=== PATIENT | female | born 1955 | race Caucasian/White ===

== ENCOUNTER 2023-07-30 13:04 | Outpatient (AMB) | payer MEDICARE, SELFPAY ==
--- NOTE | 2023-07-30 13:11 | MHC.PC.OV ---
Vital Signs 07/30/23 13:17 Height 5 ft 1 in Weight 153 lb 6 oz BMI 29.0 BP 120/60 Blood Pressure Location Lt brachial Position Sitting Pulse 63 Pulse Source Pulse Oximeter Pulse Oximetry (%) 97 Oxygen Delivery Method Room Air Intake Visit Reasons: establish Care Intake Note: Patient is here to establish care with Dr. Lepe. Patient reports her last colonoscopy was in 2021, last pneumovax was in 2020, last mammogram was in 2020, and she is allergic to the tetanus booster. Patient would like her meds refilled, and would like to talk about breathing test. 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 Accompanied by: Self / Same As Patient Allergies albuterol Allergy (Mild, Verified 07/30/23 13:22) headache, coded on operating table diphtheria,tetanus,poliomyelitis va Allergy (Mild, Verified 07/30/23 13:22) Swelling solumedrol Allergy (Mild, Uncoded 07/30/23 13:22) Anaphylaxis Medication List - Last Reconciled 07/30/23 by Devang Lepe MD aspirin 81 mg PO DAILY clopidogrel 75 mg PO DAILY famotidine 40 mg PO DAILY auqfbbmmzem-jgzewnkmj-hmzbiyrk 100-62.5-25 mcg (Trelegy Ellipta) 1 inh inhalation DAILY meclizine (Dramamine (meclizine)) 25 mg PO DAILY PRN metoprolol succinate ER 25 mg PO BID morphine 15 mg PO .4 times a day PRN nitroglycerin 0.4 mg sublingual Q5M PRN oxycodone-acetaminophen 10-325 mg 1 tab PO Q8H PRN rosuvastatin 40 mg PO DAILY sertraline 200 mg PO DAILY Tobacco use date assessed: 07/30/23 Fall risk assessment: 2 + Falls in past year Last assessed Fall Risk: 07/30/23 Dental Screening Dental Screen Date: 07/30/23 Did you have a dental visit in the last 12 months?: No Did you have a dental problem in the last 6 months where you did not have access to dental care?: No Was dental information given to patient?: Patient declined HPI establish Care HPI Details New?patient Prior?PCP: Dr. Gustafson, [facility]. Moved 1.5 yrs ago. Last?office?visit/CPE: Acute?issue(s): Colonoscopy 2021 - dx rectal CA. No f/u x 1.5 yrs. Now with burning and pain at perineum. Cervical spine pain. Pain management Dr John Pacheco [facility]. PMHx: CAD, R Lung cancer 1996 and s/p Lobectomy - stable, Rectal cancer dx in 2021, cerebral aneurysm 12 cm s/p coiled, COPD, palpitations, anxiety, peripheral arterial disease with stents. Endometriosis. b/L breast discharge and FAmily Hx Breast CA. Cervical radiculopathy. SurgHx: Right long lobectomy, Brain aneurysm coil procedure. coronary artery stent, hysterectomy, bilateral mastectomy, neck surgery, lower extremity artery stent/Bypass. Colonoscopy 2021 - dx rectal CA. Cervical disc replacement. FHx: Grandmother Breast CA SocHx: Quit cigs 1.5 yrs ago. EtOH rarely 1 drink. No drugs PFSH Medical History (Updated 07/30/23 @ 14:33 by Devang Lepe MD) Rectal cancer Palpitations Anxiety 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 Lung cancer Aneurysm, cerebral Surgical History (Updated 07/30/23 @ 13:28 by Heena Wright [facility]) History of heart artery stent History of hysterectomy History of partial mastectomy of both breasts History of neck surgery Family History (Updated 07/30/23 @ 13:30 by Heena Wright [facility]) Mother High cholesterol Lung cancer Cardiovascular disease Paternal Grandmother Breast cancer Sister Non-Hodgkin lymphoma Social History (Updated 07/30/23 @ 13:37 by Anupama Singleton [facility]) Household Members: Family Household Members Other:: sister, sister's boyfriend Both parents involved: No Caregiver staying overnight: No Housing: House Are you a primary hospice care transitions coordinator to a significant other at home: No Do you presently have visiting nurse or other home services: No 75 years or older and lives alone: No Alcohol intake: current Alcohol intake frequency: a few times a month Alcohol type: beer and hard liquor Comment: on occasion Patient Tobacco Use Status: Former Tobacco user e-Cigarette/Vaping Use: Never Used Current occupational status: disabled Current occupational exposures/hazards: No Cognitive needs: No Hearing needs: Yes (Patient has hearing aids) Vision needs: Yes (Patient wears glasses) Questionnaire PHQ-9 Over the last 2 weeks, how often have you been bothered by any of the following problems? 1. Little interest or pleasure in doing things: more than half the days 2. Feeling down, depressed, or hopeless: several days 3. Trouble falling or staying asleep, or sleeping too much: nearly every day 4. Feeling tired or having little energy: nearly every day 5. Poor appetite or overeating: nearly every day 6. Feeling bad about yourself - or that you are a failure or have let yourself or your family down: not at all 7. Trouble concentrating on things, such as reading the newspaper or watching television: not at all 8. Moving or speaking so slowly that other people could have noticed. Or the opposite - being so fidgety or restless that you have been moving around a lot more than usual: not at all 9. Thoughts that you would be better off or of hurting yourself in some way: not at all Total score: 12 Depression Screening Interpretation: Positive Depression Screening Done: Yes [id number] - PHQ-9 Billing: Yes Source: Developed by Drs. Marlo Reed, Roxana Lopez, Justin Bruner and colleagues, with an educational north from [employer]. Thrive Questionnaire Date Thrive assessed: 07/30/23 I am a: Patient What is your living situation today?: I have a steady place to live Within the past 12 months, did the food you bought not last and you didn't have the money to get more?: Never true Within the past 12 months, did you worry whether your food would run out before you got money to buy more?: Never true Do you have trouble paying for medicines?: No Do you have trouble getting transportation to medical appointments?: Yes (sometimes) Do you have trouble paying your heating and electricity bill?: No Do you have trouble taking care of your child, family member or friend?: No Do you have trouble with day-to-day activities such as bathing, preparing meals, shopping, managing finances, etc.?: No Are you currently unemployed and looking for a job?: No (disabled) Are you interested in more education?: No Please select the resources that you would like help with: Transportation Currently or been in a relationship where the following occur: no concerns reported THRIVE Score: 1 AUDIT C Alcohol Use Questionnaire (AUDIT-C) 1. How often do you have a drink containing alcohol?: 2-4 times a month 2. How many drinks containing alcohol do you have on a typical day when you are drinking?: 1 or 2 3. How often do you have six or more drinks on one occasion?: Never Total Score: 2 LEIGHANN-7 AMB Questionnaire LEIGHANN-7 Date LEIGHANN - 7 assessed: 07/30/23 Feeling nervous, anxious, or on edge: 1 = Several days Not being able to stop or control worryin = Not at all Worrying too much about different things: 0 = Not at all Trouble relaxin = Several days Being so restless that it is hard to sit still: 0 = Not at all Becoming easily annoyed or irritable: 1 = Several days Feeling afraid as if something awful might happen: 1 = Several days Total LEIGHANN-7 score (0-4 normal; 5-9 mild; 10-14 moderate; 15-21 severe): 4 Source: Developed by Drs. Marlo Reed, Roxana Lopez, Justin Bruner and colleagues, with an educational north from [employer]. LEIGHANN-7 Assessment Billing LEIGHANN-7 Assessment Tool: LEIGHANN-7 Assessment 81514 Review of Systems Const Denies chills, Denies fatigue, Denies fever(s), Denies headache(s) and Denies weakness ENT Denies dizziness and Denies headache(s) Card Denies chest pain, Denies lightheadedness, Denies dyspnea and Denies other (Palpitations) Resp Denies cough, Denies dyspnea, Denies wheezing and Denies other ( shortness of breath) GI Details: Rectal/perineal?mass.??See?HPI Musc Details: Cervicalgia Denies numbness and Denies tingling Neuro Denies dizziness, Denies headache(s), Denies numbness, Denies tingling, Denies paresthesias and Denies weakness Psych Denies anxiety and Denies depression Endo Denies fatigue Aller/Immun Denies wheezing Physical exam (Primary Care) Vital Signs: Last Vital Signs Pulse 63 07/30/23 13:17 BP 120/60 07/30/23 13:17 Pulse Ox 97 07/30/23 13:17 Oxygen Delivery Method Room Air 07/30/23 13:17 BMI result Body Mass Index 29.0 Tobacco/Smoking Status: Tobacco use Status Tobacco use date assessed 07/30/23 07/30/23 13:31 Patient Tobacco Use Status Former Tobacco user 07/30/23 13:37 e-Cigarette/Vaping Use Never Used 07/30/23 13:37 PHQ-9: PHQ-9 Score PHQ-9: Total score 12 07/30/23 13:31 Depression Screening Interpretation: Positive Thrive Assessment: Date of Thrive Assessment Date Thrive assessed 07/30/23 07/30/23 13:31 Currently or been in a relationship where the following occur: no concerns reported Const General: no acute distress and well developed Nutritional Appearance: well nourished Orientation/consciousness: patient oriented x3 HENMT Head: Yes normocephalic and Yes atraumatic Eyes General: appearance normal, both eyes and all related structures Pupils: Equal, round and reactive pupils present EOM: EOMs intact bilaterally Resp Effort & Inspection: normal respiratory effort Auscultation: clear to auscultation bilaterally Cardio Rate: regular rate Rhythm: regular rhythm Heart sounds: S1 normal heart sound present, S2 normal heart sound present, no gallops, no murmurs and no rubs Neuro General: patient oriented x3 and gait normal Cranial nerves: Yes Equal, round and reactive pupils present Psych Affect: normal affect Assessment and Plan Assessment & Plan (1) Rectal carcinoma: Code(s): C20 - Malignant neoplasm of rectum Plan: 67-year-old?female?presents?as?new?patient?and?describes?diagnosis?of?rectal?carcinoma?in?[facility]?[place]?prior?to?moving?here?1.5?years?ago?and?she?describes?no?further?follow-up. She?notes?perineal?and?rectal?mass?with?itching?and?burning Referred?to?surgery?and?also?to?Hematology-Oncology Requesting?records?as?I?do?not?currently?have?these. (2) Presence of stent in coronary artery in patient with coronary artery disease: Code(s): I25.10 - Atherosclerotic heart disease of [place] coronary artery without angina pectoris; Z95.5 - Presence of coronary angioplasty implant and graft Plan: History?of?coronary?artery?disease Continue?current?medication Follow-up?with?Cardiology-referred (3) COPD (chronic obstructive pulmonary disease): Code(s): J44.9 - Chronic obstructive pulmonary disease, unspecified Plan: Patient?with?COPD?now?s/p?smoking?cessation?and?s/p?right?lung?lobectomy?secondary?to?lung?cancer Referred?to?pulmonology (4) History of lung cancer: Code(s): Z85.118 - Personal history of other malignant neoplasm of bronchus and lung Plan: As?above (5) Anxiety and depression: Code(s): F41.9 - Anxiety disorder, unspecified; F32.A - Depression, unspecified Plan: Had?been?on?sertraline?200?mg?daily. Checked?with?pharmacy?and?she?has?not?received?this?recently. Starting?her?on?sertraline?50?mg?daily?and?we?can?titrate?up (6) Cervicalgia: Code(s): M54.2 - Cervicalgia Plan Cervicalgia?and?patient?notes?history?of?disc?surgery. She?says?that?she?had?a?prior?pain?management?specialist?in?[facility]?[place],??[place]. She?says?that?she?was?on?morphine?15?mg?4?times?a?day?and?Percocet?3?times?a?day.??Checked?with?her?pharmacy?in?[place]?and?they?have?no?records?of?this.??I?see?no?prescriptions?for?this?in?the?past?2?years. Removed?these?from?her?med?list?for?now.??Requesting?records. Referring?her?to?pain?management?to?look?for?alternative?modes?of?pain?control.??Will?review?records?when?available.??If?she?requires?opiate?level?of?pain?control,?would?start?her?at?lower?levels?as?she?does?not?seem?to?be?taking?this?currently. Currently,?she?has?no?acute?distress. Orders: Referrals Pain Management Referral M54.2 - Cervicalgia General Surgery Referral C20 - Malignant neoplasm of rectum Hematology & Oncology Referral C20 - Malignant neoplasm of rectum Pulmonary Medicine Referral J44.9 - Chronic obstructive pulmonary disease, unspecified, Z85.118 - Personal history of other malignant neoplasm of bronchus and lung Cardiology Referral I25.10 - Atherosclerotic heart disease of [place] coronary artery without angina pectoris, Z95.5 - Presence of coronary angioplasty implant and graft Medications: New aspirin 81 mg PO DAILY 90 days 90 tabs 4RF clopidogrel 75 mg PO DAILY 90 days 90 tabs 4RF famotidine 40 mg PO DAILY 90 days 90 tabs 3RF gwofqgvyhva-dywqwehdk-fxndvjrl 100-62.5-25 mcg (Trelegy Ellipta) 1 inh inhalation DAILY 30 days 60 ea 6RF sertraline 50 mg PO DAILY 90 days 90 tabs 3RF meclizine (Dramamine (meclizine)) 25 mg PO DAILY 30 days PRN 30 tabs 2RF dizziness, nausea metoprolol succinate ER 25 mg PO BID 90 days 180 tabs 4RF nitroglycerin do not exceed 3 doses per episode 0.4 mg sublingual Q5M 30 days PRN 120 tabs 4RF chest pain rosuvastatin 40 mg PO DAILY 90 days 90 tabs 4RF Coding Level of Care Code New Pt Level 4 (86894) Diagnoses Rectal carcinoma C20 Presence of stent in coronary artery in patient with coronary artery disease I25.10; Z95.5 COPD (chronic obstructive pulmonary disease) J44.9 History of lung cancer Z85.118 Anxiety and depression F41.9; F32.A Cervicalgia M54.2 Additional Codes LEIGHANN-7 Assessment Billing - LEIGHANN-7 Assessment Tool: LEIGHANN-7 Assessment [id number] ([id number])
[2023-07-30 13:17] VITALS: BP 120/60; PULSE 63; O2SAT 97; BMI 29.0
== END 2023-07-30 14:26 | disposition home or self-care (01) ==
PROVIDERS: PCP Family Medicine; Visit Provider Family Medicine
DX: I25.10 Atherosclerotic heart disease of native coronary artery without angina pectoris (principal); J44.9 Chronic obstructive pulmonary disease, unspecified; C20 Malignant neoplasm of rectum; Z95.5 Presence of coronary angioplasty implant and graft; F41.9 Anxiety disorder, unspecified; F32.A Depression, unspecified; Z85.118 Personal history of other malignant neoplasm of bronchus and lung; M54.2 Cervicalgia
CPT/HCPCS: 96127; 99204

== ENCOUNTER 2023-08-13 08:23 | Outpatient (AMB) | payer MEDICARE, SELFPAY ==
[2023-08-13 08:30] VITALS: BP 142/78; PULSE 94; O2SAT 96; BMI 28.9
--- NOTE | 2023-08-13 08:30 | MHC.OFFVIS ---
Vital Signs 08/13/23 08:30 Height 5 ft 1 in Weight 153 lb BMI 28.9 BP 142/78 H Blood Pressure Location Rt brachial Position Sitting Pulse 94 Pulse Source Pulse Oximeter Pulse Oximetry (%) 96 Oxygen Delivery Method Room Air Intake Visit Reasons: COPD Allergies albuterol Allergy (Mild, Verified 08/13/23 08:35) headache, coded on operating table diphtheria,tetanus,poliomyelitis va Allergy (Mild, Verified 08/13/23 08:35) Swelling solumedrol Allergy (Mild, Uncoded 08/13/23 08:35) Anaphylaxis HPI HPI COPD: Details: Luna is pleasant 67-year-old female, former smoker , quit in 2021 with underlying rectal cancer dx 2021, right lung cancer dx 1996 s/p right upper and 1/2 right middle lobectomy, cerebral aneurysm s/p coil, bilateral partial mastectomy secondary to bilateral breast discharge and family history breast cancer, COPD, GERD and peripheral arterial disease status post stents. She was referred by PCP for pulmonary evaluation. She moved here [place] 1.5 years ago and has not been under the care of Pulmonary for quite some time. She is currently managed on Trelegy 100 mcg with great response. She reports dyspnea on exertion at baseline with occasional dry cough and wheezing. She denies any recent need for prednisone or antibiotics. She denies any need for intubation related to respiratory distress. She denies any recent chest CT or PFT. PCP recently referred to Oncology and general surgeon, given h/o rectal cancer. No h/o chemo/radiation. She also has a consultation with cardiology at the end of September. She reports prescription of 2L supplemental oxygen to be used continuously, given by prior electrotype caster, however she only uses at night. She also reported prior diagnosis of pulmonary fibrosis. She does report oxygen concentrator at home but it has not been working. She has been checking her oxygen saturation at home ranging from 91-93% at baseline on room air. Denies any seasonal allergies. Reports dogs, chickens and ducks at home. 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 She reports mother, smoker, with h/o lung cancer. Of note, patient with allergies to albuterol and solumedrol, resulting in anaphylaxis. Has tolerated po prednisone as well as LAMA component of inhalers. [facility] Medical History (Updated 08/13/23 @ 09:14 by Olga Lidia Aly NP) Rectal cancer Palpitations Anxiety 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 Lung cancer Aneurysm, cerebral Surgical History (Updated 07/30/23 @ 13:28 by Heena Wright [facility]) History of heart artery stent History of hysterectomy History of partial mastectomy of both breasts History of neck surgery Family History (Updated 07/30/23 @ 13:30 by Heena Wright [facility]) Mother High cholesterol Lung cancer Cardiovascular disease Paternal Grandmother Breast cancer Sister Non-Hodgkin lymphoma Social History Household Members: Family Household Members Other:: sister, sister's boyfriend Housing: House Are you a primary ostomy care nurse to a significant other at home: No Do you presently have visiting nurse or other home services: No Alcohol intake: current Alcohol intake frequency: a few times a month Alcohol type: beer and hard liquor Comment: on occasion Patient Tobacco Use Status: Former Tobacco user e-Cigarette/Vaping Use: Never Used Current occupational status: disabled Current occupational exposures/hazards: No Cognitive needs: No Hearing needs: Yes (Patient has hearing aids) Vision needs: Yes (Patient wears glasses) Review of Systems Const Denies chills, Denies excessive sweating, Denies fever(s), Denies headache(s) and Denies night sweats Eyes Denies dry eyes, Denies irritation and Denies itchy eyes ENT Reports Normal hearing present, Denies headache(s), Denies nasal congestion, Denies nasal discharge, Denies post nasal drip and Denies sore throat Card Denies chest pain, Denies chest pain at rest, Denies chest pain with activity, Denies claudication, Denies leg edema, Denies orthopnea and Denies paroxysmal nocturnal dyspnea Resp Denies chest congestion, Denies excessive phlegm production, Denies pain on inspiration, Denies pain with cough and Denies stridor Musc Denies myalgias Neuro Reports Normal hearing present and Denies headache(s) Endo Denies excessive sweating Kostas/Lymph Denies lymphadenopathy Aller/Immun Denies itchy eyes and Denies seasonal rhinorrhea Physical Exam Vital Signs: Last Vital Signs Pulse 94 08/13/23 08:30 BP 142/78 H 08/13/23 08:30 Pulse Ox 96 08/13/23 08:30 Oxygen Delivery Method Room Air 08/13/23 08:30 BMI result Body Mass Index 28.9 Const General: cooperative, healthy appearing, comfortable, no acute distress, well developed and alert Orientation/consciousness: patient oriented x3 Limitations: no limitations HEENT Head: Yes normal to inspection, Yes normocephalic and Yes atraumatic Ears: hearing grossly normal bilaterally and external ears normal Eyes General: appearance normal, both eyes and all related structures Eyelids: Yes eyelids normal Sclerae: sclerae normal EOM: EOMs intact bilaterally Neck Neck: Yes normal visual inspection and Yes no lymphadenopathy Lymphatic: no lymphadenopathy noted Chest Chest palpation & inspection: normal inspection of the chest Resp Other: diminished throughout Effort & Inspection: normal respiratory effort, able to speak in complete sentences, no audible wheezes, no cough, no stridor, not tachypneic, no tripod positioning and no use of accessory muscles Cardio Jugular venous distension: no JVD Rate: regular rate Rhythm: regular rhythm Skin Other: warm, dry General skin exam: no rashes or lesions noted Neuro General: patient oriented x3 Cranial nerves: Yes Normal hearing present Cognition (Neuro): normal cognition Gait exam (Neuro): Normal gait present Extrem General: Yes normal to inspection, Yes capillary refill normal, Yes no clubbing, cyanosis or edema and Yes no pedal edema Psych Appearance: grossly normal and well kempt Speech and movement: Normal speech and movement present and Clear speech present Affect: normal affect Attitude: cooperative Thought process: Normal thought process present Thought content: Normal thought content present Insight: Good insight present (Psych) Judgement: Good judgement present (Psych) Assessment & Plan Assessment & Plan (1) COPD (chronic obstructive pulmonary disease): Code(s): J44.9 - Chronic obstructive pulmonary disease, unspecified Category: Medical (2) Tachycardia: Code(s): R00.0 - Tachycardia, unspecified Category: Medical (3) Dyspnea on minimal exertion: Code(s): R06.09 - Other forms of dyspnea Category: Medical (4) History of lung cancer: Code(s): Z85.118 - Personal history of other malignant neoplasm of bronchus and lung Category: Medical (5) Rectal carcinoma: Code(s): C20 - Malignant neoplasm of rectum Category: Medical (6) Personal history of tobacco use: Code(s): Z87.891 - Personal history of nicotine dependence Category: Social Hx Plan Luna presents to establish care with pulmonary provider as she has been without since moving from [place] 1.5 years ago. She has complex past medical history with COPD of unclear severity, h/o lung cancer 1996 s/p right upper and 1/2 right middle lobe, and currently with rectal carcinoma. Will send for PFT to assess severity of COPD and degree of restrictive defect. Patient recently stopped smoking 1.5 years ago, with significant smoking history and h/o lung cancer, will send for chest CT to evaluate. 6MWT attempted however patient became tachycardic within 25 yards of ambulating. HR initially 73, quickly increased to 156 with minimal ambulation, recovering quickly to 93 with rest. Oxygen saturation maintained 93-95%. During this time patient did not report any chest pain, dizziness, headache, dyspnea or palpitations. Due to tachycardia, 6MWT stopped and patient will have EKG and echo. She is aware if she develops any cardiac symptoms to seek emergent care. At this time, advised patient to continue current regimen and will follow up to review results of tests in 4-6 weeks or sooner if needed. Orders: Orders ECG 12 lead EKG Today R00.0 - Tachycardia, unspecified CA echo transthoracic complete Today R06.09 - Other forms of dyspnea PFT pulmonary function test Today J44.9 - Chronic obstructive pulmonary disease, unspecified CT chest wo IV con Today Z87.891 - Personal history of nicotine dependence Coding Level of Care Code New Pt Level 4 (83702) Diagnoses COPD (chronic obstructive pulmonary disease) J44.9 Tachycardia R00.0 Dyspnea on minimal exertion R06.09 History of lung cancer Z85.118 Rectal carcinoma C20 Personal history of tobacco use Z87.891
== END 2023-08-13 09:21 | disposition home or self-care (01) ==
PROVIDERS: PCP Family Medicine; Visit Provider Nurse Practitioner Family
DX: J44.9 Chronic obstructive pulmonary disease, unspecified (principal); R00.0 Tachycardia, unspecified; R06.09 Other forms of dyspnea; Z85.118 Personal history of other malignant neoplasm of bronchus and lung; C20 Malignant neoplasm of rectum; Z87.891 Personal history of nicotine dependence
CPT/HCPCS: 99204

== ENCOUNTER 2023-08-13 09:30 | Outpatient (REF) | payer MEDICARE, OTHER, SELFPAY ==
[2023-08-13 11:34] LABS: MANUAL DIFF FLAG NO
[2023-08-13 11:46] LABS: Basophils Absolute Auto 0.1 X10*3/uL (0.0-0.2); Basophils Percent Auto 0.7 % (0-2); Eosinophils Absolute Auto 0.2 X10*3/uL (0.0-0.4); Eosinophils Percent Auto 3.6 % (0-4); Hematocrit 42.5 % (37.0-47.0); Imm Gran Abs Auto 0.03 X10*3/uL (0.00-0.03); Imm Gran Pct Auto 0.4 % (0.0-0.4); Lymphocytes Absolute Auto 2.3 X10*3/uL (1.2-4.9); Lymphocytes Percent Auto 34.2 % (20-40); Mean Corpuscular HGB Conc 32.9 g/dl (31.0-35.0); Mean Corpuscular Hemoglobin 28.9 pg (27.0-33.0); Mean Corpuscular Volume 87.6 fL (80.0-98.0); Mean Platelet Volume 9.2 fL (9.4-12.3); Monocytes Absolute Auto 0.6 X10*3/uL (0.1-1.2); Monocytes Percent Auto 9.4 % (2-11); Neutrophils Absolute Auto 3.5 x10*3/uL (2.0-8.3); Neutrophils Percent Auto 51.7 % (45-73); Platelet Count 211 X10*3/uL (160-400); Red Blood Count 4.85 X10*6/uL (4.20-5.50); Red Cell Distribution Width 13.4 % (11.0-16.0); White Blood Count 6.7 X10*3/uL (4.8-10.8)
[2023-08-13 12:08] LABS: Alanine Aminotransferase 17 U/L (0-31); Albumin Level 4.4 g/dL (3.5-5.0); Alkaline Phosphatase 84 U/L (39-117); Anion Gap 16 (12-20); Aspartate Amino Transferase 24 U/L (5-31); Bilirubin Total 0.4 mg/dL (0.0-1.0); Blood Urea Nitrogen 24 mg/dL (9-16); Calcium 10.5 mg/dL (8.4-10.2); Carbon Dioxide 22 mmol/L (22-29); Chloride 107 mmol/L (96-108); Cholesterol 352 mg/dL (<200); Estimated Glomerular Filt Rate 38; Glucose Fasting 102 mg/dL (60-99); HDL Cholesterol 43 mg/dL (>40); LDL Cholesterol Calculated 248 mg/dL (<100); Potassium 3.6 mmol/L (3.3-5.1); Sodium 141 mmol/L (135-145); Total Protein 8.2 g/dL (6.5-8.0); Triglycerides 306 mg/dL (<150)
[2023-08-13 12:26] LABS: TSH reflex Free T4 4.71 uIU/mL (0.32-4.0)
[2023-08-13 12:30] LABS: Microalbum/Creatinine Ratio Ur 7.1 ug/mg cr (<30)
[2023-08-13 12:45] LABS: Appearance Urine Hazy; Color Urine Yellow; Glucose Urine UA Negative (Negative); Leukocyte Esterase Urine Negative (Negative); Nitrite Urine Negative (Negative); Specific Gravity - Urine >= 1.030 (1.005-1.025); Urine Blood Negative (Negative); Urine Ketones Negative (Negative); Urine Protein Trace mg/dL (Neg-Trace)
[2023-08-13 13:08] LABS: Free T4 (Free Thyroxine) 0.89 ng/dL (0.71-1.85)
[2023-08-14 08:33] LABS: Carbohydrate Antigen 19-9 22 U/mL (<34)
== END 2023-08-13 09:31 | disposition home or self-care (01) ==
LOC: HO.WFDLDS 09:30
PROVIDERS: Visit Provider Family Medicine
DX: Z00.00 Encounter for general adult medical examination without abnormal findings (principal); C20 Malignant neoplasm of rectum; I10 Essential (primary) hypertension; J44.9 Chronic obstructive pulmonary disease, unspecified; R00.0 Tachycardia, unspecified; R06.09 Other forms of dyspnea; Z85.118 Personal history of other malignant neoplasm of bronchus and lung; Z87.891 Personal history of nicotine dependence
CPT/HCPCS: 36415; 80053; 80061; 81003; 82043; 82378; 82570; 84439; 84443; 85025; 86301; 99202

== ENCOUNTER → 2023-08-15 15:07 | Outpatient (REF) | payer MEDICARE, OTHER, SELFPAY ==
--- NOTE | 2023-08-15 15:15 | ECG_ITS ---
Test Reason : TACHYCARDIA Blood Pressure : / mmHG Vent. Rate : 075 BPM Atrial Rate : 075 BPM P-R Int : 130 ms QRS Dur : 092 ms QT Int : 410 ms P-R-T Axes : 075 022 058 degrees QTc Int : 457 ms Sinus rhythm with marked sinus arrhythmia Nonspecific ST and T wave abnormality Abnormal ECG No previous ECGs available Referred By: Olga Lidia Aly Electronically Signed By:Tadeo Oden
== END ==
LOC: HO.CARD 15:07
PROVIDERS: Visit Provider Nurse Practitioner Family
DX: R00.0 Tachycardia, unspecified (principal)
CPT/HCPCS: 46600; 93005; 99202

== ENCOUNTER → 2023-08-15 15:15 | Outpatient (BNV) | payer MEDICARE, SELFPAY | PROVIDERS: Visit Provider Internal Medicine Cardiovascular Disease | DX: R94.31 Abnormal electrocardiogram [ECG] [EKG] (principal); R00.0 Tachycardia, unspecified | CPT/HCPCS: 93010 ==

== ENCOUNTER 2023-08-15 15:30 | Outpatient (AMB) | payer MEDICARE, SELFPAY ==
--- NOTE | 2023-08-15 15:44 | A.OFFVIS_ITS ---
Vital Signs 08/15/23 15:46 Height 5 ft 1 in Weight 153 lb 0.013 oz BMI 28.9 Intake Visit Reasons: Possible Rectal CA Intake Note: This patient presents for an assessment for possible Rectal CA. Pt c/o; reports no complaints. 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 Accompanied by: Other Relationship Allergies albuterol Allergy (Mild, Verified 08/21/23 13:04) headache, coded on operating table diphtheria,tetanus,poliomyelitis va Allergy (Mild, Verified 08/21/23 13:04) Swelling solumedrol Allergy (Mild, Uncoded 08/15/23 15:45) Anaphylaxis Medication List - Last Reconciled 08/15/23 by Edilberto Kearns MD aspirin 81 mg PO DAILY 90 days clopidogrel 75 mg PO DAILY 90 days famotidine 40 mg PO DAILY 90 days gbdkqfcooqx-vbvoblnlj-hnhznbuv 100-62.5-25 mcg (Trelegy Ellipta) 1 inh inhalation DAILY 30 days meclizine (Dramamine (meclizine)) 25 mg PO DAILY PRN 30 days metoprolol succinate ER 25 mg PO BID 90 days nitroglycerin 0.4 mg sublingual Q5M PRN 30 days rosuvastatin 40 mg PO DAILY 90 days sertraline 50 mg PO DAILY 90 days HPI HPI Possible Rectal CA: Details: 67-year-old female referred to me for question of a cancer in the anus. She just moved to the area from [place], [place] about a year and a half ago. She says she was being treated there because of a cancer outside her anus. She says she had multiple surgeries to remove this. She has not seen any surgeon since she had moved here. She is uncertain as to exactly what kind of cancer she had. She says she did not have any other treatment. She describes some burning around her anus but denies any significant pain. She says they often has loose bowel movements. She denies seeing blood per rectum. 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 Lung cancer Aneurysm, cerebral Surgical History History of heart artery stent History of hysterectomy History of partial mastectomy of both breasts History of neck surgery Family History Mother High cholesterol Lung cancer Cardiovascular disease Paternal Grandmother Breast cancer Sister Non-Hodgkin lymphoma Social History Household Members: Family Household Members Other:: sister, sister's boyfriend Both parents involved: No Caregiver staying overnight: No Housing: House Are you a primary foster care therapist to a significant other at home: No Do you presently have visiting nurse or other home services: No 75 years or older and lives alone: No Alcohol intake: current Alcohol intake frequency: a few times a month Alcohol type: beer and hard liquor Comment: on occasion Patient Tobacco Use Status: Former Tobacco user e-Cigarette/Vaping Use: Never Used Current occupational status: disabled Current occupational exposures/hazards: No Cognitive needs: No Hearing needs: Yes (Patient has hearing aids) Vision needs: Yes (Patient wears glasses) Review of Systems Const Denies chills and Denies fever(s) Card Denies chest pain, Denies dyspnea and Denies dyspnea on exertion Resp Denies cough, Denies dyspnea and Denies dyspnea on exertion GI Denies hematochezia and Denies change in bowel habits Denies hematuria Musc Denies back pain and Denies limited range of motion Neuro Denies focal weakness and Denies convulsions Psych Denies depression and Denies mood swings Physical Exam Vital Signs: BMI result Body Mass Index 28.9 Const General: comfortable and no acute distress Orientation/consciousness: patient oriented x3 Neck Neck: Yes no lymphadenopathy Resp Auscultation: clear to auscultation bilaterally Cardio Rhythm: regular rhythm GI Other: Rectal exam shows no obvious perianal lesion Palpation (GI): Soft to palpation, nontender and no guarding Neuro General: patient oriented x3 Office Procedures Anoscopy She was in soni-knife position. The anoscope was gently inserted. A full examination of the anal canal was done. She did have a lot of stools in the rectal vault so visualization was difficult. There was no obvious mass seen. I did a digital exam and I could not feel any induration or any mass in the anal canal. [id number] Assessment & Plan Assessment & Plan (1) Mass of anus: Code(s): K62.89 - Other specified diseases of anus and rectum Category: Medical Plan: She says she was being treated for some form of cancer in her anus in [place]. Current exam does not reveal any anal lesion. Furthermore, there were no obvious lesions in the perianal area. I will retrieve her records from [place] and I will review this to see exactly what she was being treated for. I will need to see her back to discuss next step in her care after I am able to review her records She is is comfortable with the plan. Coding Level of Care Code New Pt Level 4 (08629) Diagnoses Mass of anus K62.89 CPT Codes Details - CPT: 11583-Swjsqmsj ([id number])
[2023-08-15 15:46] VITALS: BMI 28.9
== END 2023-08-15 16:11 | disposition home or self-care (01) ==
PROVIDERS: PCP Family Medicine; Referring Provider Family Medicine; Visit Provider Surgery
DX: K62.89 Other specified diseases of anus and rectum (principal)
CPT/HCPCS: 46600; 99204

== ENCOUNTER → 2023-08-21 12:49 | Outpatient (BNVA) | payer MEDICARE, SELFPAY | PROVIDERS: PCP Family Medicine; Referring Provider Family Medicine; Visit Provider Registered Nurse Emergency ==

== ENCOUNTER 2023-09-10 10:30 | Outpatient (AMB) | payer MEDICARE, SELFPAY ==
--- NOTE | 2023-09-10 10:32 | MHC.OFFVIS ---
Vital Signs 09/10/23 10:33 Height 5 ft 1 in Weight 151 lb 8 oz BMI 28.6 BP 118/70 Blood Pressure Location Rt brachial Position Sitting Pulse 88 Pulse Source Pulse Oximeter Pulse Oximetry (%) 97 Oxygen Delivery Method Room Air Intake Visit Reasons: COPD Allergies albuterol Allergy (Mild, Verified 09/11/23 16:25) headache, coded on operating table diphtheria,tetanus,poliomyelitis va Allergy (Mild, Verified 09/11/23 16:25) Swelling solumedrol Allergy (Mild, Uncoded 09/11/23 16:25) Anaphylaxis HPI HPI COPD: Details: Luna is pleasant 67-year-old female, former smoker , quit in 2021 with underlying rectal cancer dx 2021, right lung cancer dx 1996 s/p right upper and 1/2 right middle lobectomy, cerebral aneurysm s/p coil, bilateral partial mastectomy secondary to bilateral breast discharge and family history breast cancer, COPD, GERD and peripheral arterial disease status post stents. At the last visit, orders were placed for PFT and chest CT which are scheduled in the next few weeks. She had reportedly using supplemental oxygen while in [place],, 2L continuously, however has only been using at night for the last year. She does not recall the DME company that she uses, but they are located in [place]. 6MWT was attempted at the last visit in order to send new rx for concentrator, however patient became tachycardic without hypoxia and test was stopped. She had EKG, an echo was ordered and she has an upcoming cardiology evaluation. She has been checking her oxygen saturation at home ranging from 91-93% at baseline on room air. Today she reports suboptimal control with Trelegy, continuing with dyspnea on exertion and intermittent dry cough. Denies chest tigthness or wheezing. 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 Lung cancer Aneurysm, cerebral Surgical History History of heart artery stent History of hysterectomy History of partial mastectomy of both breasts History of neck surgery Family History Mother High cholesterol Lung cancer Cardiovascular disease Paternal Grandmother Breast cancer Sister Non-Hodgkin lymphoma Social History Household Members: Family Household Members Other:: sister, sister's boyfriend Both parents involved: No Caregiver staying overnight: No Housing: House Are you a primary long term acute care registered nurse to a significant other at home: No Do you presently have visiting nurse or other home services: No 75 years or older and lives alone: No Alcohol intake: current Alcohol intake frequency: a few times a month Alcohol type: beer and hard liquor Comment: on occasion Patient Tobacco Use Status: Former Tobacco user e-Cigarette/Vaping Use: Never Used Current occupational status: disabled Current occupational exposures/hazards: No Cognitive needs: No Hearing needs: Yes (Patient has hearing aids) Vision needs: Yes (Patient wears glasses) Review of Systems Const Denies chills, Denies excessive sweating, Denies fever(s), Denies headache(s) and Denies night sweats Eyes Denies dry eyes, Denies irritation and Denies itchy eyes ENT Reports Normal hearing present, Denies headache(s), Denies nasal congestion, Denies nasal discharge, Denies post nasal drip and Denies sore throat Card Denies chest pain, Denies chest pain at rest, Denies chest pain with activity, Denies claudication, Denies leg edema, Denies orthopnea and Denies paroxysmal nocturnal dyspnea Resp Denies chest congestion, Denies excessive phlegm production, Denies pain on inspiration, Denies pain with cough and Denies stridor Musc Denies myalgias Neuro Reports Normal hearing present and Denies headache(s) Endo Denies excessive sweating Kostas/Lymph Denies lymphadenopathy Aller/Immun Denies itchy eyes and Denies seasonal rhinorrhea Physical Exam Vital Signs: Last Vital Signs Pulse 88 09/10/23 10:33 BP 118/70 09/10/23 10:33 Pulse Ox 97 09/10/23 10:33 Oxygen Delivery Method Room Air 09/10/23 10:33 BMI result Body Mass Index 28.6 Const General: cooperative, healthy appearing, comfortable, no acute distress, well developed and alert Orientation/consciousness: patient oriented x3 Limitations: no limitations HEENT Head: Yes normal to inspection, Yes normocephalic and Yes atraumatic Ears: hearing grossly normal bilaterally and external ears normal Eyes General: appearance normal, both eyes and all related structures Eyelids: Yes eyelids normal Sclerae: sclerae normal EOM: EOMs intact bilaterally Neck Neck: Yes normal visual inspection and Yes no lymphadenopathy Lymphatic: no lymphadenopathy noted Chest Chest palpation & inspection: normal inspection of the chest Resp Other: diminished throughout Effort & Inspection: normal respiratory effort, able to speak in complete sentences, no audible wheezes, no cough, no stridor, not tachypneic, no tripod positioning and no use of accessory muscles Cardio Jugular venous distension: no JVD Rate: regular rate Rhythm: regular rhythm Skin Other: warm, dry General skin exam: no rashes or lesions noted Neuro General: patient oriented x3 Cranial nerves: Yes Normal hearing present Cognition (Neuro): normal cognition Gait exam (Neuro): Normal gait present Extrem General: Yes normal to inspection, Yes capillary refill normal, Yes no clubbing, cyanosis or edema and Yes no pedal edema Psych Appearance: grossly normal and well kempt Speech and movement: Normal speech and movement present and Clear speech present Affect: normal affect Attitude: cooperative Thought process: Normal thought process present Thought content: Normal thought content present Insight: Good insight present (Psych) Judgement: Good judgement present (Psych) Office Procedures 6 Minute Walk Time:: 11:07 SPO2 % at rest: 94 Pulse at rest: 71 SPO2 % during excercise: 92 Pulse during excercise: 140 SPO2 % after excercise: 94 Pulse after excercise: 100 Distance in yards walked: 35 Jose Score: 7 Performance Observations:: Patient walked on level ground with a steadying arm at times. Patient walked with a slightly unsteady gait, reports she sometimes gets dizzy. Patient was able to walk approx 35 yards and pulse rate was in the 140's with O2 saturation of 92%. Walk was stopped and O2 sat increased to 94% with pulse rate of 100. Patient was short of breath all during the walk. Did not require the use of supplemental oxygen. Patient has upcoming cardiology appts. [id number] - 6 Minute Walk Assessment & Plan Assessment & Plan (1) COPD (chronic obstructive pulmonary disease): Code(s): J44.9 - Chronic obstructive pulmonary disease, unspecified Category: Medical (2) Tachycardia: Code(s): R00.0 - Tachycardia, unspecified Category: Medical (3) Dyspnea on minimal exertion: Code(s): R06.09 - Other forms of dyspnea Category: Medical (4) History of lung cancer: Code(s): Z85.118 - Personal history of other malignant neoplasm of bronchus and lung Category: Medical (5) Rectal carcinoma: Code(s): C20 - Malignant neoplasm of rectum Category: Medical (6) Personal history of tobacco use: Code(s): Z87.891 - Personal history of nicotine dependence Category: Social Hx Plan Luna continues to report suboptimal control with Trelegy 100 mcg, will increase to 200 mcg. Of note, albuterol is listed as an allergy however patient has been using Trelegy 100 mcg with no issues for the past year. At the last visit, orders were placed for a chest CT, echo and PFT. These have all been scheduled within the next few weeks. Patient again notes that she was previously on supplemental oxygen while in [place], she had moved here over a year ago and has been without since. 6MWT attempted however patient became tachycardic again, therefore, 6MWT stopped. Unable to perform at this time, will send for overnight oximetry on 2L supplemental oxygen to assess for nocturnal hypoxemia. Patient had an EKG which revealed tachycardia and nonspecific ST and T wave abnormalities. Had cardiology provider review who stated urgent referral was not needed at this time. She has an upcoming cardiology evaluation in 4 weeks. She is aware if she develops any cardiac symptoms to seek emergent care. At this time, advised patient to continue current regimen and will follow up after cardiology evaluation or sooner if needed. Orders: Orders AMB 6 minute walk 09/10/23 J44.9 - Chronic obstructive pulmonary disease, unspecified, R06.09 - Other forms of dyspnea Overnight Pulse Oximetry Today G47.34 - Idiopathic sleep related nonobstructive alveolar hypoventilation Medications: New nmtdzerrwaz-wdmwjdeid-laooonmd 200-62.5-25 mcg (Trelegy Ellipta) 1 inh inhalation DAILY 60 ea 0RF Discontinued atevitwrrji-brideqajb-iznfread 100-62.5-25 mcg (Trelegy Ellipta) Discontinued Reason: Patient Completed Course 1 inh inhalation DAILY 30 days 60 ea 6RF Coding Level of Care Code Est Pt Level 4 (54004) Diagnoses COPD (chronic obstructive pulmonary disease) J44.9 Tachycardia R00.0 Dyspnea on minimal exertion R06.09 History of lung cancer Z85.118 Rectal carcinoma C20 Personal history of tobacco use Z87.891 CPT Codes Coding ([id number])
[2023-09-10 10:33] VITALS: BP 118/70; PULSE 88; O2SAT 97; BMI 28.6
[2023-09-10 11:31] VITALS: PULSE 71; O2SAT 94
== END 2023-09-10 11:16 | disposition home or self-care (01) ==
PROVIDERS: PCP Family Medicine; Visit Provider Nurse Practitioner Family
DX: J44.9 Chronic obstructive pulmonary disease, unspecified (principal); R00.0 Tachycardia, unspecified; R06.09 Other forms of dyspnea; Z85.118 Personal history of other malignant neoplasm of bronchus and lung
CPT/HCPCS: 94618; 99214

== ENCOUNTER → 2023-09-10 10:30 | Outpatient (BNVA) | payer MEDICARE, OTHER, SELFPAY | PROVIDERS: PCP Family Medicine; Visit Provider Nurse Practitioner Family | DX: J44.9 Chronic obstructive pulmonary disease, unspecified (principal); R00.0 Tachycardia, unspecified; R06.09 Other forms of dyspnea; C20 Malignant neoplasm of rectum; Z85.118 Personal history of other malignant neoplasm of bronchus and lung; Z87.891 Personal history of nicotine dependence; Z79.899 Other long term (current) drug therapy | CPT/HCPCS: 94618; 99212 ==

== ENCOUNTER 2023-09-11 15:41 | Outpatient (AMB) | payer MEDICARE, SELFPAY ==
--- NOTE | 2023-09-11 16:12 | MHC.PC.OV ---
Vital Signs 09/11/23 16:16 Height 5 ft 1 in Weight 148 lb 8 oz BMI 28.1 BP 117/64 Blood Pressure Location Lt brachial Pulse 64 Pulse Source Pulse Oximeter Pulse Oximetry (%) 94 Oxygen Delivery Method Room Air Intake Visit Reasons: extended exam with f/up lab, health maint. Intake Note: Patient is here for extended exam with follow up on labs, and health maintenance. Allergies albuterol Allergy (Mild, Verified 09/11/23 16:25) headache, coded on operating table diphtheria,tetanus,poliomyelitis va Allergy (Mild, Verified 09/11/23 16:25) Swelling solumedrol Allergy (Mild, Uncoded 09/11/23 16:25) Anaphylaxis Tobacco use date assessed: 07/30/23 Dental Screening Dental Screen Date: 07/30/23 HPI extended exam with f/up lab, health maint. HPI Details Patient?presents?for?an?extended?exam?with?follow-up?labs?and?health?maintenance Lipids?had?been?elevated?so?I?started?her?on?rosuvastatin TSH?mildly?elevated Patient?states?that?she?has?ongoing?neck?pain.??History?of?cervical?surgery?though?I?do?not?have?records?yet. She?also?states?that?she?has?a?history?of?rectal?carcinoma?with?anal?mass.??Surgeon?did?not?find?any?mass.??Still?awaiting?records Complaint?of?right?upper?quadrant?pain.??History?of?cholecystectomy. 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 Lung cancer Aneurysm, cerebral Surgical History History of heart artery stent History of hysterectomy History of partial mastectomy of both breasts History of neck surgery Family History Mother High cholesterol Lung cancer Cardiovascular disease Paternal Grandmother Breast cancer Sister Non-Hodgkin lymphoma Social History Household Members: Family Household Members Other:: sister, sister's boyfriend Both parents involved: No Caregiver staying overnight: No Housing: House Are you a primary care process manager to a significant other at home: No Do you presently have visiting nurse or other home services: No 75 years or older and lives alone: No Alcohol intake: current Alcohol intake frequency: a few times a month Alcohol type: beer and hard liquor Comment: on occasion Patient Tobacco Use Status: Former Tobacco user e-Cigarette/Vaping Use: Never Used Current occupational status: disabled Current occupational exposures/hazards: No Cognitive needs: No Hearing needs: Yes (Patient has hearing aids) Vision needs: Yes (Patient wears glasses) Questionnaire PHQ-9 Over the last 2 weeks, how often have you been bothered by any of the following problems? 1. Little interest or pleasure in doing things: nearly every day 2. Feeling down, depressed, or hopeless: several days 3. Trouble falling or staying asleep, or sleeping too much: not at all (Getting to sleep) 4. Feeling tired or having little energy: nearly every day 5. Poor appetite or overeating: nearly every day 6. Feeling bad about yourself - or that you are a failure or have let yourself or your family down: nearly every day 7. Trouble concentrating on things, such as reading the newspaper or watching television: not at all 8. Moving or speaking so slowly that other people could have noticed. Or the opposite - being so fidgety or restless that you have been moving around a lot more than usual: not at all 9. Thoughts that you would be better off or of hurting yourself in some way: not at all Total score: 13 Depression Screening Interpretation: Positive Depression Screening Done: Yes Source: Developed by Drs. Marlo Reed, Roxana Lopez, Justin Bruner and colleagues, with an educational north from [employer]. Thrive Questionnaire Date Thrive assessed: 07/30/23 LEIGHANN-7 AMB Questionnaire LEIGHANN-7 Date LEIGHANN - 7 assessed: 09/11/23 Feeling nervous, anxious, or on edge: 1 = Several days Not being able to stop or control worryin = Several days Worrying too much about different things: 0 = Not at all Trouble relaxin = Not at all Being so restless that it is hard to sit still: 0 = Not at all Becoming easily annoyed or irritable: 0 = Not at all Feeling afraid as if something awful might happen: 1 = Several days Total LEIGHANN-7 score (0-4 normal; 5-9 mild; 10-14 moderate; 15-21 severe): 3 Source: Developed by Drs. Marlo Reed, Roxana Lopez, Justin Bruner and colleagues, with an educational north from [employer]. Review of Systems Const Denies chills, Denies fatigue, Denies fever(s), Denies headache(s) and Denies weakness Eyes Denies change in vision ENT Denies dizziness, Denies headache(s), Denies hearing loss, Denies nasal congestion, Denies sinus pain, Denies sinus pressure and Denies sore throat Card Denies chest pain, Denies lightheadedness, Denies dyspnea and Denies other (palpitations) Resp Denies cough, Denies dyspnea and Denies wheezing GI Reports abdominal pain (Right?upper?quadrant), Denies melena, Denies hematochezia, Denies change in bowel habits, Denies dyspepsia and Denies nausea Denies hematuria and Denies dysuria Musc Details: Chronic?neck?pain Denies abnormal gait, Denies myalgias, Denies arthralgias, Denies numbness and Denies tingling Skin/Breast Denies rash, Denies unusual bruising and Denies wounds Neuro Denies abnormal gait, Denies dizziness, Denies headache(s), Denies memory loss, Denies numbness, Denies Sensory deficit (Neuro), Denies tingling and Denies weakness Psych Denies anxiety, Denies depression and Denies memory loss Endo Denies cold intolerance, Denies fatigue, Denies heat intolerance, Denies polydipsia and Denies polyuria Kostas/Lymph Denies easy bleeding and Denies easy bruising Aller/Immun Denies wheezing Physical exam (Primary Care) Vital Signs: Last Vital Signs Pulse 64 09/11/23 16:16 BP 117/64 09/11/23 16:16 Pulse Ox 94 09/11/23 16:16 Oxygen Delivery Method Room Air 09/11/23 16:16 BMI result Body Mass Index 28.1 Tobacco/Smoking Status: Tobacco use Status Tobacco use date assessed 07/30/23 09/11/23 16:14 Patient Tobacco Use Status Former Tobacco user 09/11/23 16:14 e-Cigarette/Vaping Use Never Used 09/11/23 16:14 PHQ-9: PHQ-9 Score PHQ-9: Total score 13 09/11/23 16:36 Depression Screening Interpretation: Positive Thrive Assessment: Date of Thrive Assessment Date Thrive assessed 07/30/23 09/11/23 16:14 Const General: no acute distress, well developed, alert and awake Nutritional Appearance: well nourished Orientation/consciousness: patient oriented x3 HENMT Head: Yes normocephalic and Yes atraumatic Ears: hearing grossly normal bilaterally and TM's normal bilaterally General nose exam: Normal external nose present and Normal nares present Mouth: Normal oral and palatal mucosa present and moist mucous membranes Teeth and gingiva: dentition normal Throat: Yes posterior oropharynx normal Eyes Pupils: Equal, round and reactive pupils present and Pupil accommodation reflex normal EOM: EOMs intact bilaterally Neck Other: Cervicalgia w/ ROM Neck: Yes normal visual inspection, Yes no lymphadenopathy and Yes trachea midline Thyroid: Thyroid normal Carotids: no bruits Lymphatic: no lymphadenopathy noted Chest Chest palpation & inspection: normal inspection of the chest Resp Effort & Inspection: normal respiratory effort Auscultation: clear to auscultation bilaterally Cardio Rate: regular rate Rhythm: regular rhythm Heart sounds: S1 normal heart sound present, S2 normal heart sound present, no gallops, no murmurs and no rubs Bruits: no abdominal aortic bruits and no carotid bruits GI Other: RUQ TTP Palpation (GI): No Abdominal aortic bruit present, Soft to palpation, nontender, No hepatosplenomegaly present and No Rebound tenderness present Auscultation: normal bowel sounds General: Yes no CVA tenderness Back/Spine/Pelvis Other: As above cervicalgia Back: no CVA tenderness Cervical Spine: cervical ROM normal and No Cervical spine tenderness Thoracic/Lumbar Spine: thoraco-lumbar ROM normal, No pain with thoraco-lumbar ROM, No thoracic spinal tenderness and No lumbar spinal tenderness Skin Lesions: no lesions Rashes: no rashes Trauma: no lacerations or abrasions Wounds: no wounds Nails: normal Neuro General: patient oriented x3, gait normal and CN's II-XI intact bilaterally Cranial nerves: Yes Equal, round and reactive pupils present Cognition (Neuro): normal cognition Gait exam (Neuro): Normal gait present Motor exam (neuro): 5/5 motor strength present throughout Sensory Exam: No Sensory deficit (Neuro) Deep tendon reflexes (DTR's): Right patellar reflex intensity grade: 2+ and Left patellar reflex intensity grade: 2+ Extrem General: Yes normal to inspection and No edema Psych Other: Currently?stable?on?sertraline Appearance: grossly normal Affect: normal affect Attitude: cooperative Thought process: Normal thought process present Assessment and Plan Assessment & Plan (1) Cervicalgia: Code(s): M54.2 - Cervicalgia Plan: Patient?has?chronic?neck?pain.??She?has?a?history?of?cervical?surgery?though?I?do?not?have?her?records?regarding?this. She?says?that?she?had?been?on?opioid[place]medications[place]with?the?pain?management?specialist.??Again,?I?do?not?have?any?record?of?this?and?also,?BILLING SPEC?for[place]and[place]?show?no?recent?opioid?medications. Had?referred?patient?to?pain?management.??This?visit?is?status'd as?canceled. Patient?says?that?she?did?speak?to?the?pain?management?specialist?who?said?there?was?not?much?they?could?offer?and?recommended?chiropractic?but?patient?says?she?was?told?never?to?have?chiropractic?manipulation?due?to?her?surgeries. She?has?currently?not?taking?any?medication.??I?did?explain?that?I?can?not?use?a?medications?such?as?an?opioid?medication?as?she?has?not?been?on?something?like?this?in?quite?some?time?and?really?I?have?no?records?of?it?at?all. She?says?that?she?takes?ibuprofen?occasionally.??We?will?trial?meloxicam. Will?also?give?her?a?script?for?gabapentin?at?low?dose?as?she?says?in?the?past?she?has?had?this?and?had?issues?with?lower?extremity?edema. Will?refer?her?to?new?[facility] (2) Rectal carcinoma: Code(s): C20 - Malignant neoplasm of rectum Plan: Patient?says?she?has?a?history?of?rectal?carcinoma.??I?do?not?have?records?still Had?referred?her?to?surgeon?who?performed?exam?and?did?not?find?any?rectal?mass He?is?awaiting?records?as?well ?Patient?has?not?had?any?recent?screening?for?colon?cancer. Referring?her?to?Gastroenterology?as?she?also?has?abdominal?pain. (3) Abdominal pain: Code(s): R10.9 - Unspecified abdominal pain Plan: Right?upper?quadrant?abdominal?pain.??She?notes?that?she?has?had?a?history?of?cholecystectomy. Also?claims?a?history?of?rectal?carcinoma. Referred?to?Gastroenterology (4) Hyperlipidemia: Code(s): E78.5 - Hyperlipidemia, unspecified Plan: Lipid?levels?were?quite?high?and?triglycerides?also?rather?high. Had?sent?a?script?for?rosuvastatin?and?patient?is?tolerating?this Will?check?lipid?levels?with?next?blood?draw?in?a?couple?of?months (5) Anxiety and depression: Code(s): F41.9 - Anxiety disorder, unspecified; F32.A - Depression, unspecified Plan: She?is?taking?sertraline?200?mg?daily Send?script?to?continue?this. (6) Breast cancer screening by mammogram: Code(s): Z12.31 - Encounter for screening mammogram for malignant neoplasm of breast Plan: Patient?says?she?has?not?had?a?mammogram?in?several?years. Mammogram?ordered (7) Adult general medical exam: Code(s): Z00.00 - Encounter for general adult medical examination without abnormal findings Plan: 67-year-old?female?presents?for?an?extended?exam Orders: Orders Triiodothyronine T3 Total Today E03.9 - Hypothyroidism, unspecified TSH reflex Free T4 Today Z00.00 - Encounter for general adult medical examination without abnormal findings Free T4 (Free Thyroxine) Today E03.9 - Hypothyroidism, unspecified Lipid Panel Today E78.5 - Hyperlipidemia, unspecified, Z00.00 - Encounter for general adult medical examination without abnormal findings Comprehensive [place]. Panel Fast Today E78.5 - Hyperlipidemia, unspecified, Z00.00 - Encounter for general adult medical examination without abnormal findings Referrals Gastroenterology Referral R10.9 - Unspecified abdominal pain Orthopedics Referral M54.2 - Cervicalgia Medications: New meloxicam 15 mg PO DAILY 30 days PRN 30 tabs 2RF Severe pain M54.2 - Cervicalgia gabapentin 200 mg (2 x 100 mg) PO BEDTIME 30 days 60 caps 2RF M54.2 - Cervicalgia Changed From sertraline 50 mg PO DAILY 90 days 90 tabs 3RF To sertraline 200 mg (2 x 100 mg) PO DAILY 90 days 180 tabs 3RF Coding Level of Care Code Est Pt Level 4 (63936) Diagnoses Cervicalgia M54.2 Rectal carcinoma C20 Abdominal pain R10.9 Hyperlipidemia E78.5 Anxiety and depression F41.9; F32.A Breast cancer screening by mammogram Z12.31 Adult general medical exam Z00.00
[2023-09-11 16:16] VITALS: BP 117/64; PULSE 64; O2SAT 94; BMI 28.1
== END 2023-09-11 17:05 ==
PROVIDERS: PCP Family Medicine; Visit Provider Family Medicine
DX: Z00.00 Encounter for general adult medical examination without abnormal findings (principal); C20 Malignant neoplasm of rectum; M54.2 Cervicalgia; R10.9 Unspecified abdominal pain; E78.5 Hyperlipidemia, unspecified; F41.9 Anxiety disorder, unspecified; F32.A Depression, unspecified; Z12.31 Encounter for screening mammogram for malignant neoplasm of breast
CPT/HCPCS: 99214; 99397

== ENCOUNTER → 2023-09-17 14:19 | Outpatient (REF) | payer MEDICARE, OTHER, SELFPAY ==
--- NOTE | 2023-09-17 14:21 | CA_ITS ---
Transthoracic Echocardiogram Patient (Last, First, Middle): Luna Elliott, Gender: Female Date of : 1955 Age: 67 Procedure Date: 09/17/2023 Procedure Type: Transthoracic Echocardiogram Location: OP Height: 154.94 cm Weight: 68.49 kg BSA: 1.68 m2 Heart Rate: 47 bpm BP: 120 / 60 mmHg Barrel Planer: JENNIFER Posada MD: Olga Lidia Aly FIRST LINE SUPERVISOR Lead Cargo Mover: Dada Daley MD Symptoms: R06.09 - Other forms of dyspnea Study Quality: Fair ECG Rhythm: Bradycardia Conclusions: - 1. Normal LV ejection fraction of 60 65% with impaired relaxation filling pattern 2. Normal cardiac valvular Doppler 3. Normal RV systolic pressure 4. No gross pericardial effusion Findings Left Ventricle Normal left ventricular size, thickness, and systolic function. The visually estimated ejection fraction is between 60-65%. Spectral Doppler is indicative of an impaired relaxation filling pattern. E/E prime ratio is between 8 and 15 consistent with indeterminate filling pressures. Right Ventricle Normal right ventricular cavity size and systolic function. Atria The left atrium is normal in size. Interatrial shunt cannot be excluded. The right atrium is normal in size. Aortic Valve The aortic valve structure and function is likely normal. There is no aortic valve stenosis. There is no aortic valve regurgitation. Mitral Valve Likely normal mitral valve structure and function. There is trace mitral valve regurgitation. There is no mitral valve stenosis. Pulmonic Valve The pulmonic valve was not well visualized. Tricuspid Valve Likely normal tricuspid valve structure and function. There is trace tricuspid valve regurgitation. The right ventricular systolic pressure is normal. The right ventricular systolic pressure is 17 mmHg. Normal right atrial pressure. There is no evidence of pulmonary hypertension. Great Vessels All visible segments of the aorta are normal in size. The pulmonary artery was not well visualized. There is no dilatation of the ascending aorta measuring 3.10 cm. Venous The inferior vena cava is normal in size and collapses greater than 50% with inspiration. Pericardium/Pleural There is no evidence of pericardial effusion. Prior Study Comparison No prior study available for comparison. Measurements 2D Linear Measurements IVSd: 0.94 0.6-0.9/0.6-1.0 cm LVIDd: 4.75 3.9-5.3/4.2-5.9 cm LVIDd Index: 2.83 2.4-3.2/2.2-3.1 cm/m2 LVIDs: 2.54 2.0-3.6 cm LVPWd: 1.09 0.7-1.1 cm LA Diam: 3.00 2.7-3.8/3.0-4.0 cm LAIDs Index: 1.79 1.5-2.3 cm/m2 LV Mass: 212.96 67-162/88-224 g LV Mass Index: 126.76 43-95/49-115 g/m2 LVOT Diam: 1.80 3.0+(-)1.3 cm 2D Systolic Function EF 4C: 66.80 >55% EF 2C: 60.80 >55% EF BiP: 64.00 >55% Mitral Valve MV Pk E: 0.83 MV PK A: 0.86 MV Decel Time: 228.00 E/A: 1.00 E'Lateral: 7.72 E'Medial: 6.64 E/E' Med: 12.40 E/E' Lat: 10.70 PHT: 67.00 MVA PHT: 3.28 Decel Lynn: 3.62 Aortic Valve AoV Pk Aureliano: 1.19 AoV Mn Aureliano: 0.85 AoV VTI: 0.30 AoV Pk Grad: 6.00 Aov Mn Grad: 3.00 MERE Cont.VTI: 2.42 LVOT LVOT Pk Aureliano: 1.09 LVOT Mn Aureliano: 0.72 LVOT VTI: 0.29 LVOT Pk Grad: 5.00 LVOT Mn Grad: 2.00 LVOT Diam: 1.80 LVOT Area: 2.54 Diastolic Function MV Pk E: 0.83 MV Pk A: 0.86 E/A: 1.00 E'Medial: 6.64 E/E' Med: 12.40 E' Laterial: 7.72 E/E' Lat: 10.70 Right Ventricle TAPSE (mm): 22.60 TVS' Aureliano: 9.36 Tricuspid Valve TR Pk Aureliano: 1.88 TR Pk Grad: 14.00 RA Press: 3.00 RVSP: 17.00 Great Vessels Aorta Sinus of Valsalva: 3.10 2.0-3.5 cm Ao Asc: 3.10 2.1-3.4 cm Pulmonary Valve PV Pk Aureliano: 0.80 Peak PV Grad: 3.00 Updated in Other Vendor System with Status of Final Dada Daley MD electronically signed on 09/17/2023 4:55:50 PM with status of Final
== END ==
LOC: HO.CARD 14:19
PROVIDERS: PCP Family Medicine; Visit Provider Nurse Practitioner Family
DX: R06.09 Other forms of dyspnea (principal)
CPT/HCPCS: 93306

== ENCOUNTER → 2023-09-17 14:21 | Outpatient (BNV) | payer MEDICARE, SELFPAY | PROVIDERS: PCP Family Medicine; Visit Provider Internal Medicine Cardiovascular Disease | DX: R06.09 Other forms of dyspnea (principal) | CPT/HCPCS: 93306 ==

== ENCOUNTER 2023-10-04 13:56 | Outpatient (REF) | payer MEDICARE, OTHER, SELFPAY ==
--- NOTE | ~2023-10-04 | CT_ITS ---
EXAMINATION: CT CHEST WITHOUT CONTRAST CLINICAL INFORMATION: History of nicotine dependence COMPARISON: None available. TECHNIQUE: Multidetector volumetric CT imaging of the chest was done. Axial MIP volume rendering provided. Sagittal and coronal reformatted images were obtained. This CT examination was performed using dose optimization techniques as appropriate, variously including the following: *Automated exposure control *Adjustment of mA and/or kV according to patient size (this includes techniques or standardized protocols for targeted exams where dose is matched to indication/reason for exam; i.e. extremities or head) *Use of iterative reconstruction technique DLP: 127 mGy-cm FINDINGS: LUNGS: Right lung 7 mm nodule (5:251). Left lower lobe semisolid 5 mm nodule (5:291). Right lower lung subpleural reticular opacities and bronchiectasis with suggestion of early fibrotic change. Postsurgical changes related to right upper lobectomy. PLEURA: No pleural effusion. MEDIASTINUM: No cardiomegaly. Aorta and pulmonary artery are normal in caliber. No mediastinal adenopathy. Lack of IV contrast with evaluation for hilar adenopathy. Right hilar postsurgical changes. CORONARY ARTERY CALCIFICATION: Coronary artery calcifications are present. CHEST WALL/AXILLA: No axillary or internal mammary lymphadenopathy. UPPER ABDOMEN: Status post cholecystectomy. OSSEOUS STRUCTURES: Unremarkable. CT/CT chest wo IV con IMPRESSION: Right lung 7 mm nodule. Left lower lobe semisolid 5 mm nodule. Given postsurgical changes, correlate with history of cancer and follow-up per oncologic protocol. Otherwise recommend follow-up per Fleischner guidelines. Next According to the UPDATED 2017 Fleischner Society recommendations, the advised followup imaging for a single 6-8 mm solid nodule is: LOW RISK PATIENT: CT at 6-12 months, then consider CT at 18-24 months. HIGH RISK PATIENT: CT at 6-12 months, then at 18-24 months. Right lower lung subpleural reticular opacities and bronchiectasis with suggestion of early fibrotic change.
== END 2023-10-04 13:57 | disposition home or self-care (01) ==
LOC: HO.CT 13:56
PROVIDERS: Visit Provider Nurse Practitioner Family
DX: Z87.891 Personal history of nicotine dependence (principal)
CPT/HCPCS: 71250

== ENCOUNTER 2023-10-23 14:46 | Outpatient (AMB) | payer MEDICARE, SELFPAY ==
[2023-10-23 14:55] VITALS: BP 110/58; PULSE 52; BMI 28.7
--- NOTE | 2023-10-23 14:55 | MHC.OFFVIS ---
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 angio Allergies albuterol Allergy (Mild, Verified 09/11/23 16:25) headache, coded on operating table diphtheria,tetanus,poliomyelitis va Allergy (Mild, Verified 09/11/23 16:25) Swelling solumedrol Allergy (Mild, Uncoded 09/11/23 16:25) Anaphylaxis Medication List - Last Reconciled 10/23/23 by Gurvinder Alberts MD aspirin 81 mg PO DAILY 90 days clopidogrel 75 mg PO DAILY [id number]-[id number]-[id number] 200-62.5-25 mcg (Trelegy Ellipta) 1 inh inhalation DAILY meclizine (Dramamine (meclizine)) 25 mg PO DAILY PRN 30 days meloxicam 15 mg PO DAILY PRN 30 days metoprolol succinate ER 25 mg PO BID 90 days nitroglycerin 0.4 mg sublingual Q5M PRN 30 days rosuvastatin 40 mg PO DAILY 90 days sertraline 200 mg (2 x 100 mg) PO DAILY 90 days HPI Comments Details: Luna is here for cardiac evaluation. It seems that she has had a lot of medical workup done [place]. From the cardiac standpoint, there is a question of prior cardiac catheterization/PCI but patient not able to give us much information. Based on the medical record scan, it appears that is the history of RCA stent from 2007. Unclear if she had any recent catheterization. She also has history of COPD as well as lung cancer. Otherwise, patient states that she is describing sensations of heart racing. She states that her heart rate goes up quite a bit -at times, as much as 150/Min with ambulation. Lot of aches and pains but suspect lot of it is just musculoskeletal and nothing cardiac. 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 Lung cancer Aneurysm, cerebral Surgical History History of heart artery stent History of hysterectomy History of partial mastectomy of both breasts History of neck surgery Family History Mother High cholesterol Lung cancer Cardiovascular disease Paternal Grandmother Breast cancer Sister Non-Hodgkin lymphoma Social History Household Members: Family Household Members Other:: sister, sister's boyfriend Both parents involved: No Caregiver staying overnight: No Housing: House Are you a primary healthcare project manager to a significant other at home: No Do you presently have visiting nurse or other home services: No 75 years or older and lives alone: No Alcohol intake: current Alcohol intake frequency: a few times a month Alcohol type: beer and hard liquor Comment: on occasion Patient Tobacco Use Status: Former Tobacco user e-Cigarette/Vaping Use: Never Used Current occupational status: disabled Current occupational exposures/hazards: No Cognitive needs: No Hearing needs: Yes (Patient has hearing aids) Vision needs: Yes (Patient wears glasses) Review of Systems Const Denies weakness ENT Reports dizziness Card Denies chest pain, Denies chest pain with activity, Denies syncope, Denies rapid heart rate, Denies pedal edema, Denies edema, Denies leg edema, Denies lightheadedness, Reports palpitations, Reports dyspnea, Denies dyspnea on exertion and Denies orthopnea Resp Denies cough, Reports dyspnea and Denies dyspnea on exertion GI Denies hematochezia and Denies change in stool character Musc Denies abnormal gait, Denies muscle cramps, Denies muscle weakness, Denies numbness, Denies radiating pain into limb and Denies tingling Neuro Denies abnormal gait, Reports dizziness, Denies syncope, Denies numbness, Denies tingling and Denies weakness Endo Reports palpitations Physical Exam Vital Signs: Last Vital Signs Pulse 52 10/23/23 14:55 BP 110/58 L 10/23/23 14:55 BMI result Body Mass Index 28.7 Const General: comfortable and no acute distress Orientation/consciousness: patient oriented x3 HEENT Other: Unremarkable Head: Yes normal to inspection Neck Neck: Yes normal visual inspection Chest Chest palpation & inspection: normal inspection of the chest Resp Auscultation: clear to auscultation bilaterally Cardio Palpation: normal PMI Heart sounds: S1 normal heart sound present, S2 normal heart sound present, no gallops, no murmurs and no rubs GI Palpation (GI): Soft to palpation Back/Spine/Pelvis Other: unremarkable Skin General skin exam: no rashes or lesions noted Neuro General: patient oriented x3 Extrem General: Yes normal to inspection Psych Mental Status: mental status grossly normal Assessment & Plan Assessment & Plan (1) Palpitations: Code(s): R00.2 - Palpitations Category: Medical (2) Atherosclerotic cardiovascular disease: Code(s): I25.10 - Atherosclerotic heart disease of [place] coronary artery without angina pectoris Category: Medical Plan In the recent EKG, underlying rhythm is sinus at 75/Min; sinus arrhythmia; mild nonspecific ST-T changes. Normal MT and corrected QT. In the recent echocardiogram, LVEF 60-65%; no significant valvular findings and otherwise unremarkable. We need to get records from software architect in [place] regarding her previous workup including the last office note. Will also get a Holter monitor. Follow-up after the above. Orders: Orders ECG 3 day holter monitor Today R00.2 - Palpitations Coding Level of Care Code New Pt Level 3 (48905) Diagnoses Palpitations R00.2 Atherosclerotic cardiovascular disease I25.10
== END 2023-10-23 16:25 | disposition home or self-care (01) ==
PROVIDERS: PCP Family Medicine; Visit Provider Internal Medicine
DX: R00.2 Palpitations (principal); I25.10 Atherosclerotic heart disease of native coronary artery without angina pectoris
CPT/HCPCS: 99203

== ENCOUNTER → 2023-10-23 14:46 | Outpatient (BNVA) | payer MEDICARE, SELFPAY | PROVIDERS: PCP Family Medicine; Visit Provider Internal Medicine | DX: I25.10 Atherosclerotic heart disease of native coronary artery without angina pectoris (principal); R00.2 Palpitations | CPT/HCPCS: 99202 ==

== ENCOUNTER → 2023-11-01 13:21 | Outpatient (REF) | payer MEDICARE, SELFPAY ==
--- NOTE | 2023-11-01 13:24 | HM_ITS ---
* Total monitoring time 3 days. * Underlying rhythm is sinus with an average rate of 63/Min. * Frequent supraventricular ectopy with a burden of 15%. * Rare ventricular ectopy. * No significant pauses or AV blocks. * No patient markers. * Diary dates do not correlate with diary entries. MTDD
== END ==
LOC: HO.CARD 13:21
PROVIDERS: PCP Family Medicine; Visit Provider Internal Medicine
DX: R00.2 Palpitations (principal)
CPT/HCPCS: 93242

== ENCOUNTER → 2023-11-01 13:24 | Outpatient (BNV) | payer MEDICARE, SELFPAY | PROVIDERS: PCP Family Medicine; Visit Provider Internal Medicine | DX: I47.10 Supraventricular tachycardia, unspecified (principal) | CPT/HCPCS: 93244 ==

== ENCOUNTER 2023-11-30 12:44 | Outpatient (REF) | payer MEDICARE, SELFPAY ==
[2023-11-30 10:18] VITALS: PULSE 35; RESP 16; O2SAT 95
--- NOTE | 2023-11-30 12:30 | PFT_ITS ---
Flows: FEV1: 55 % of predicted at 1.12 L FVC: 95 % of predicted at 2.47 L FEV1/FVC: 46 % Bronchodilator response: Absent Volumes: Total lung capacity: 85 % of predicted at 3.83 L Residual volume: 79 % of predicted at 1.36 L Slow vital capacity: 89 % of predicted at 2.47 L Expiratory reserve volume: 91 % of predicted at 0.59 L Diffusion capacity: Moderately decreased Impression: Moderate obstructive ventilatory defect with no bronchodilator response. Decreased diffusion capacity suggests emphysema. MTDD
== END 2023-11-30 12:45 | disposition home or self-care (01) ==
LOC: HO.RESP 12:44
PROVIDERS: PCP Family Medicine; Visit Provider Nurse Practitioner Family
DX: J44.9 Chronic obstructive pulmonary disease, unspecified (principal)
CPT/HCPCS: 94010; 94640; 94727; 94729

== ENCOUNTER 2023-12-04 10:30 | Outpatient (AMB) | payer MEDICARE, SELFPAY ==
--- NOTE | 2023-12-04 10:37 | A.OFFVIS_ITS ---
Vital Signs 12/04/23 10:38 Height 5 ft 1 in Weight 156 lb 8 oz BMI 29.6 BP 132/74 Blood Pressure Location Lt brachial Position Sitting Pulse 95 Pulse Source Pulse Oximeter Pulse Oximetry (%) 96 Oxygen Delivery Method Room Air Intake Visit Reasons: COPD/PFT Follow Up Allergies albuterol Allergy (Mild, Verified 12/04/23 10:40) headache, coded on operating table diphtheria,tetanus,poliomyelitis va Allergy (Mild, Verified 12/04/23 10:40) Swelling solumedrol Allergy (Mild, Uncoded 12/04/23 10:40) Anaphylaxis HPI HPI COPD/PFT Follow Up: Details: Luna is pleasant 67-year-old female, former smoker , quit in 2021 with underlying rectal cancer dx 2021, right lung cancer dx 1996 s/p right upper and 1/2 right middle lobectomy, cerebral aneurysm s/p coil, bilateral partial mastectomy secondary to bilateral breast discharge and family history breast cancer, COPD, GERD and peripheral arterial disease status post stents. She had reportedly using supplemental oxygen while in [place], 2L continuously, however she has not required met criteria during 6MWT at this office. She was sent for overnight oximetry, stated 2 L however patient states her concentrator was not working for the last few months. She is currently undergoing cardiology evaluation. At the last visit, her Trelegy was increased to 200 mcg, however she stated it resulted in headaches and dizziness, so is back to the 100 mcg dose. She has adverse reactions to albuterol and has trialed multiple inhalers with side effects. She continues to report labored breathing with any exertion. Today she presents to review PFT and chest CT. [facility] Medical History (Updated 11/13/23 @ 15:09 by Olga Lidia Aly NP) Mass of anus Rectal cancer Palpitations Anxiety 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 Lung cancer Aneurysm, cerebral Surgical History History of heart artery stent History of hysterectomy History of partial mastectomy of both breasts History of neck surgery Family History Mother High cholesterol Lung cancer Cardiovascular disease Paternal Grandmother Breast cancer Sister Non-Hodgkin lymphoma Social History Household Members: Family Household Members Other:: sister, sister's boyfriend Both parents involved: No Caregiver staying overnight: No Housing: House Are you a primary hemodialysis patient care specialist to a significant other at home: No Do you presently have visiting nurse or other home services: No 75 years or older and lives alone: No Alcohol intake: current Alcohol intake frequency: a few times a month Alcohol type: beer and hard liquor Comment: on occasion Patient Tobacco Use Status: Former Tobacco user e-Cigarette/Vaping Use: Never Used Current occupational status: disabled Current occupational exposures/hazards: No Cognitive needs: No Hearing needs: Yes (Patient has hearing aids) Vision needs: Yes (Patient wears glasses) Review of Systems Const Denies chills, Denies excessive sweating, Denies fever(s), Denies headache(s) and Denies night sweats Eyes Denies dry eyes, Denies irritation and Denies itchy eyes ENT Reports Normal hearing present, Denies headache(s), Denies nasal congestion, Denies nasal discharge, Denies post nasal drip and Denies sore throat Card Denies chest pain, Denies chest pain at rest, Denies chest pain with activity, Denies claudication, Denies leg edema, Denies orthopnea and Denies paroxysmal nocturnal dyspnea Resp Denies chest congestion, Denies excessive phlegm production, Denies pain on inspiration, Denies pain with cough and Denies stridor Musc Denies myalgias Neuro Reports Normal hearing present and Denies headache(s) Endo Denies excessive sweating Kostas/Lymph Denies lymphadenopathy Aller/Immun Denies itchy eyes and Denies seasonal rhinorrhea Physical Exam Vital Signs: Last Vital Signs Pulse 95 12/04/23 10:38 BP 132/74 12/04/23 10:38 Pulse Ox 96 12/04/23 10:38 Oxygen Delivery Method Room Air 12/04/23 10:38 BMI result Body Mass Index 29.6 Const General: cooperative, healthy appearing, comfortable, no acute distress, well developed and alert Orientation/consciousness: patient oriented x3 Limitations: no limitations HEENT Head: Yes normal to inspection, Yes normocephalic and Yes atraumatic Ears: hearing grossly normal bilaterally and external ears normal Eyes General: appearance normal, both eyes and all related structures Eyelids: Yes eyelids normal Sclerae: sclerae normal EOM: EOMs intact bilaterally Neck Neck: Yes normal visual inspection and Yes no lymphadenopathy Lymphatic: no lymphadenopathy noted Chest Chest palpation & inspection: normal inspection of the chest Resp Other: diminished throughout Effort & Inspection: normal respiratory effort, able to speak in complete sentences, no audible wheezes, no cough, no stridor, not tachypneic, no tripod positioning and no use of accessory muscles Cardio Jugular venous distension: no JVD Rate: regular rate Rhythm: regular rhythm Skin Other: warm, dry General skin exam: no rashes or lesions noted Neuro General: patient oriented x3 Cranial nerves: Yes Normal hearing present Cognition (Neuro): normal cognition Gait exam (Neuro): Normal gait present Extrem General: Yes normal to inspection, Yes capillary refill normal, Yes no clubbing, cyanosis or edema and Yes no pedal edema Psych Appearance: grossly normal and well kempt Speech and movement: Normal speech and movement present and Clear speech present Affect: normal affect Attitude: cooperative Thought process: Normal thought process present Thought content: Normal thought content present Insight: Good insight present (Psych) Judgement: Good judgement present (Psych) Office Procedures 6 Minute Walk Time:: 11:17 SPO2 % at rest: 96 Pulse at rest: 93 SPO2 % during excercise: 94 Pulse during excercise: 118 SPO2 % after excercise: 97 Pulse after excercise: 124 Distance in yards walked: 100 Jose Score: 8 Performance Observations:: Patient walked unassisted on level ground at moderate pace. After 30 yards patient becomes short of breath with some wheezing. O2 sat 94-96. Slowed down the walking pace. Patient completed the walk maintaining O2 sat of 94% or greater and pulse rate of 118 or less. Patient did not require the use of supplemental oxygen. She reports she tires easily and feels sob..spends most of her time in her chair at home. [address] - 6 Minute Walk Results Reviewed Results Reviewed: [address] [address] [address] Scan Report Signed Patient: Luna Elliott MR#: [id number] : 1955 Acct:[id number] Age/Sex: 67 / F ADM Date: 10/04/23 Loc: HO.CT Attending Dr: Olga Lidia Aly NP Ordering Physician: Olga Lidia Aly NP Date of Service: 10/04/23 Procedure(s): CT chest wo IV con Accession Number(s): [id number] cc: MarcelodawoodOlga Lidia NP~ EXAMINATION: CT CHEST WITHOUT CONTRAST CLINICAL INFORMATION: History of nicotine dependence COMPARISON: None available. TECHNIQUE: Multidetector volumetric CT imaging of the chest was done. Axial MIP volume rendering provided. Sagittal and coronal reformatted images were obtained. This CT examination was performed using dose optimization techniques as appropriate, variously including the following: *Automated exposure control *Adjustment of mA and/or kV according to patient size (this includes techniques or standardized protocols for targeted exams where dose is matched to indication/reason for exam; i.e. extremities or head) *Use of iterative reconstruction technique DLP: 127 mGy-cm FINDINGS: LUNGS: Right lung 7 mm nodule (5:251). Left lower lobe semisolid 5 mm nodule (5:291). Right lower lung subpleural reticular opacities and bronchiectasis with suggestion of early fibrotic change. Postsurgical changes related to right upper lobectomy. PLEURA: No pleural effusion. MEDIASTINUM: No cardiomegaly. Aorta and pulmonary artery are normal in caliber. No mediastinal adenopathy. Lack of IV contrast with evaluation for hilar adenopathy. Right hilar postsurgical changes. CORONARY ARTERY CALCIFICATION: Coronary artery calcifications are present. CHEST WALL/AXILLA: No axillary or internal mammary lymphadenopathy. UPPER ABDOMEN: Status post cholecystectomy. OSSEOUS STRUCTURES: Unremarkable. CT/CT chest wo IV con IMPRESSION: Right lung 7 mm nodule. Left lower lobe semisolid 5 mm nodule. Given postsurgical changes, correlate with history of cancer and follow-up per oncologic protocol. Otherwise recommend follow-up per Fleischner guidelines. Next According to the UPDATED 2017 Fleischner Society recommendations, the advised followup imaging for a single 6-8 mm solid nodule is: LOW RISK PATIENT: CT at 6-12 months, then consider CT at 18-24 months. HIGH RISK PATIENT: CT at 6-12 months, then at 18-24 months. Right lower lung subpleural reticular opacities and bronchiectasis with suggestion of early fibrotic change. 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: Assessment & Plan Assessment & Plan (1) COPD (chronic obstructive pulmonary disease): Code(s): J44.9 - Chronic obstructive pulmonary disease, unspecified Category: Medical (2) Dyspnea on minimal exertion: Code(s): R06.09 - Other forms of dyspnea Category: Medical (3) History of lung cancer: Code(s): Z85.118 - Personal history of other malignant neoplasm of bronchus and lung Category: Medical (4) Rectal carcinoma: Code(s): C20 - Malignant neoplasm of rectum Category: Medical (5) Personal history of tobacco use: Code(s): Z87.891 - Personal history of nicotine dependence Category: Social Hx (6) Pulmonary nodule: Code(s): R91.1 - Solitary pulmonary nodule Category: Medical Plan Offered to switch to Brezri however patient would like to maintain on Trelegy. Patient requesting supplemental oxygen however 6MWT performed again in office, lowest O2 94%, and does not qualify for supplemental oxygen. Reviewed overnight oximetry results, and per pt she was using room air as concentrator not functioning, which did not reveal nocturnal hypoxemia. Reviewed PFT which revealed moderate obstructive ventilatory defect with no bronchodilator response. Decreased diffusion capacity suggests emphysema. Reviewed chest CT which revealed right lung 7 mm nodule. Left lower lobe semisolid 5 mm nodule, with postsurgical changes noted. Will repeat chest CT in 6 months to assess stability. All questions were answered and patient is in agreement of plan. Will follow up in 3-6 months or sooner if needed. Orders: Orders AMB 6 minute walk Today J44.9 - Chronic obstructive pulmonary disease, unspecified CT chest wo IV con 4 Months R91.1 - Solitary pulmonary nodule Medications: New pbsexvonyqo-kbjyeftcu-vmdqsqva 100-62.5-25 mcg (Trelegy Ellipta) 1 inh inhalation DAILY 60 ea 3RF Coding Level of Care Code Est Pt Level 4 (57030) Diagnoses COPD (chronic obstructive pulmonary disease) J44.9 Dyspnea on minimal exertion R06.09 History of lung cancer Z85.118 Rectal carcinoma C20 Personal history of tobacco use Z87.891 Pulmonary nodule R91.1 CPT Codes Coding ([id number])
[2023-12-04 10:38] VITALS: BP 132/74; PULSE 95; O2SAT 96; BMI 29.6
[2023-12-04 11:49] VITALS: PULSE 93; O2SAT 96
== END 2023-12-04 11:22 | disposition home or self-care (01) ==
PROVIDERS: PCP Family Medicine; Visit Provider Nurse Practitioner Family
DX: J44.9 Chronic obstructive pulmonary disease, unspecified (principal); R06.09 Other forms of dyspnea; Z85.118 Personal history of other malignant neoplasm of bronchus and lung; C20 Malignant neoplasm of rectum; Z87.891 Personal history of nicotine dependence; R91.1 Solitary pulmonary nodule
CPT/HCPCS: 94618; 99214

== ENCOUNTER → 2023-12-04 10:30 | Outpatient (BNVA) | payer MEDICARE, SELFPAY | PROVIDERS: PCP Family Medicine; Visit Provider Nurse Practitioner Family | DX: J44.9 Chronic obstructive pulmonary disease, unspecified (principal); R91.1 Solitary pulmonary nodule; C20 Malignant neoplasm of rectum; Z85.118 Personal history of other malignant neoplasm of bronchus and lung; Z87.891 Personal history of nicotine dependence | CPT/HCPCS: 94618; 99212 ==

== ENCOUNTER 2023-12-17 14:35 | Outpatient (AMB) | payer MEDICARE, SELFPAY ==
[2023-12-17 14:36] VITALS: BP 134/60; PULSE 52; BMI 30.2
--- NOTE | 2023-12-17 14:36 | A.OFFVIS_ITS ---
Vital Signs 12/17/23 14:36 Height 5 ft 1 in Weight 159 lb 9.835 oz BMI 30.2 BP 134/60 Blood Pressure Location Lt brachial Position Sitting Pulse 52 Pulse Source Monitor Intake Visit Reasons: 2 mth s/p [facility] records.[facility] Waste Reclaimer Required: No Allergies albuterol Allergy (Mild, Verified 12/17/23 14:39) headache, coded on operating table diphtheria,tetanus,poliomyelitis va Allergy (Mild, Verified 12/17/23 14:39) Swelling solumedrol Allergy (Mild, Uncoded 12/17/23 14:39) Anaphylaxis Medication List - Last Reconciled 12/17/23 by LADAN Nunes aspirin 81 mg PO DAILY 90 days clopidogrel 75 mg PO DAILY sdyhragghpg-xkygmybrn-qqydlzbk 100-62.5-25 mcg (Trelegy Ellipta) 1 inh inhalation DAILY mxyoqhwzous-jxznkaamb-phlhsuon 200-62.5-25 mcg (Trelegy Ellipta) 1 inh inhalation DAILY meclizine (Dramamine (meclizine)) 25 mg PO DAILY PRN 30 days meloxicam 15 mg PO DAILY PRN 30 days metoprolol succinate ER 25 mg PO BID 90 days nitroglycerin 0.4 mg sublingual Q5M PRN 30 days rosuvastatin 40 mg PO DAILY 90 days sertraline 200 mg (2 x 100 mg) PO DAILY 90 days HPI HPI 2 mth s/p [facility] records.[facility]: Details: Luna is a 68-year-old female with past medical history of hyperlipidemia, coronary artery disease with RCA stent 2007, lung CA status post lobectomy, rectal CA who previously lived in [place] and has been living in this area for 1.5 years. She was recently seen in cardiac consultation. A Holter monitor and echocardiogram were done and she now presents for follow-up. Today she reports that she has chronic shortness of breath with activity. She says when she was in [place] she used to wear oxygen with nasal cannula. Since being here in [place] she said she has had testing and does not qualify for the oxygen. She sleeps with her head of the bed elevated. She has no significant coughing, no leg edema. She will get chest tightness that occurs periodically. She will notice it more when she is short of breath. She is mostly sedentary and does not do anything exertional. She will feel heart palpitations like skipped beats. No sustained rapid or irregular rates. No dizziness, presyncope, syncope, falls. She reports compliance with her medications. No bleeding issues reported. She said she was off Plavix for awhile but then she was having issues with her heart again and they put her back on Plavix while still in [place]. [facility] Medical History Mass of anus Rectal cancer Palpitations Anxiety 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 Lung cancer Aneurysm, cerebral Surgical History History of heart artery stent History of hysterectomy History of partial mastectomy of both breasts History of neck surgery Family History Mother High cholesterol Lung cancer Cardiovascular disease Paternal Grandmother Breast cancer Sister Non-Hodgkin lymphoma Social History Household Members: Family Household Members Other:: sister, sister's boyfriend Both parents involved: No Caregiver staying overnight: No Housing: House Are you a primary child day care teacher to a significant other at home: No Do you presently have visiting nurse or other home services: No 75 years or older and lives alone: No Alcohol intake: current Alcohol intake frequency: a few times a month Alcohol type: beer and hard liquor Comment: on occasion Patient Tobacco Use Status: Former Tobacco user e-Cigarette/Vaping Use: Never Used Current occupational status: disabled Current occupational exposures/hazards: No Cognitive needs: No Hearing needs: Yes (Patient has hearing aids) Vision needs: Yes (Patient wears glasses) Review of Systems Const All systems reviewed & are unremarkable except as noted in HPI and below ENT Denies dizziness Card Reports chest pain (tightness), Denies chest pain at rest, Denies chest pain with activity, Denies rapid heart rate, Denies pedal edema, Denies edema, Denies leg edema, Denies lightheadedness, Denies palpitations, Reports dyspnea, Reports dyspnea on exertion and Reports orthopnea Resp Denies cough, Reports dyspnea and Reports dyspnea on exertion GI Denies hematochezia and Denies change in stool character Musc Denies abnormal gait, Denies limited range of motion, Denies muscle cramps, Denies muscle weakness, Denies numbness, Denies radiating pain into limb, Denies stiffness and Denies tingling Neuro Denies abnormal gait, Denies dizziness, Denies numbness and Denies tingling Endo Denies palpitations Physical Exam Vital Signs: Last Vital Signs Pulse 52 12/17/23 14:36 BP 134/60 12/17/23 14:36 BMI result Body Mass Index 30.2 Const General: cooperative, healthy appearing, comfortable and no acute distress Orientation/consciousness: patient oriented x3 Neck Neck: Yes normal visual inspection and Yes no JVD Resp Effort & Inspection: normal respiratory effort Auscultation: clear to auscultation bilaterally, no rales, no rhonchi and no wheezes Cardio Rate: regular rate Rhythm: regular rhythm Heart sounds: S1 normal heart sound present, S2 normal heart sound present, no murmurs and no rubs Neuro General: patient oriented x3 Extrem General: Yes normal to inspection and No no pedal edema Psych Appearance: grossly normal Mental Status: mental status grossly normal Speech and movement: Normal speech and movement present Office Procedures EKG Details: Today, read by me, sinus bradycardia with marked sinus arrhythmia, nonspecific ST abnormality, rate 52, QTC 401 milliseconds [id number], Complete Assessment & Plan Assessment & Plan (1) Atherosclerotic cardiovascular disease: Code(s): I25.10 - Atherosclerotic heart disease of [place] coronary artery without angina pectoris Category: Medical Plan: History of CAD, RCA stent placed 2007. She was residing in [place] at that time. She moved to this area 1.5 years ago. She was seen in cardiology consultation 10/23/2023. Her records from [place] have been obtained and I did review most of it, as the quantity is excessive. An echocardiogram was done here 09/17/2023 showing EF 60-65%, impaired relaxation, normal valves, normal RV, no regional wall motion abnormalities. Her medication list includes aspirin, Plavix, metoprolol XL 25 mg b.i.d. and rosuvastatin 40 mg daily. Labs done 08/13/2023 showed LDL 248. It is not clear if she was actually taking her rosuvastatin at that time. She currently reports compliance. Will plan for recheck of lipid profile. She does report some tightness in her chest that occurs randomly. It could be related to her COPD/shortness of breath however with her remote coronary stent ischemia will need to be ruled out. EKG done today is showing sinus bradycardia, marked sinus arrhythmia, nonspecific ST abnormalities, rate 52. Will order a pharmacological nuclear stress test to evaluate for ischemia. She recalls having a medicine stress test in the past and tells me she did okay with it. She does not recall any issues with allergy to aminophylline or regadenoson. She has had anaphylaxis with albuterol. Plan to call her with results. Cardiology follow-up 3 months, sooner if needed. (2) Presence of stent in coronary artery in patient with coronary artery disease: Comment: Right coronary stent 2007 Code(s): I25.10 - Atherosclerotic heart disease of [place] coronary artery without angina pectoris; Z95.5 - Presence of coronary angioplasty implant and graft Category: Medical Plan: As above (3) Chest discomfort: Code(s): R07.89 - Other chest pain Category: Medical Plan: As above (4) Shortness of breath: Code(s): R06.02 - Shortness of breath Category: Medical Plan: Chronic shortness of breath related to COPD and she reports history of lung cancer with prior lobectomy. She had been on oxygen supplement for many years however has not used oxygen since moving to this area 1.5 years ago. She currently follows with pulmonology. (5) COPD (chronic obstructive pulmonary disease): Code(s): J44.9 - Chronic obstructive pulmonary disease, unspecified Category: Medical Plan: As above (6) History of lung cancer: Code(s): Z85.118 - Personal history of other malignant neoplasm of bronchus and lung Category: Medical Plan: As above (7) Rectal carcinoma: Code(s): C20 - Malignant neoplasm of rectum Category: Medical Plan: History of rectal carcinoma. She has been seen by Dr. Kearns, surgery department, and she has an upcoming visit with GI. Plan Time spent on chart review, documentation, interview and assessment Orders: Orders NM cardiolite stress test Today I25.10 - Atherosclerotic heart disease of [place] coronary artery without angina pectoris, R06.02 - Shortness of breath, R07.89 - Other chest pain, Z95.5 - Presence of coronary angioplasty implant and graft CA lexiscan stress w carlos Today I25.10 - Atherosclerotic heart disease of [place] coronary artery without angina pectoris, R07.89 - Other chest pain, Z95.5 - Presence of coronary angioplasty implant and graft Coding Level of Care Code Est Pt Level 4 (51338) Diagnoses Atherosclerotic cardiovascular disease I25.10 Presence of stent in coronary artery in patient with coronary artery disease I25.10; Z95.5 Chest discomfort R07.89 Shortness of breath R06.02 COPD (chronic obstructive pulmonary disease) J44.9 History of lung cancer Z85.118 Rectal carcinoma C20 CPT Codes EKG - CPT: 70569-Mvqwgnftvxkovmelg, Complete ([id number]) Time Spent (min) 36
== END 2023-12-17 15:12 | disposition home or self-care (01) ==
PROVIDERS: PCP Family Medicine; Visit Provider Nurse Practitioner Family
DX: I25.10 Atherosclerotic heart disease of native coronary artery without angina pectoris (principal)
CPT/HCPCS: 93010; 99214

== ENCOUNTER → 2023-12-17 14:35 | Outpatient (BNVA) | payer MEDICARE, SELFPAY | PROVIDERS: PCP Family Medicine; Visit Provider Nurse Practitioner Family | DX: I25.10 Atherosclerotic heart disease of native coronary artery without angina pectoris (principal); R07.89 Other chest pain; R06.02 Shortness of breath; J44.9 Chronic obstructive pulmonary disease, unspecified; C20 Malignant neoplasm of rectum; Z85.118 Personal history of other malignant neoplasm of bronchus and lung; Z95.5 Presence of coronary angioplasty implant and graft | CPT/HCPCS: 93005; 99212 ==

== ENCOUNTER 2024-01-29 10:06 | Outpatient (AMB) | payer MEDICARE, SELFPAY ==
--- NOTE | 2024-01-29 10:10 | A.OFFVIS_ITS ---
Vital Signs 01/29/24 10:11 Height 5 ft 1 in Weight 152 lb 1.903 oz BMI 28.7 BP 132/60 Blood Pressure Location Lt brachial Position Sitting Pulse 88 Intake Visit Reasons: abdominal pain Intake Note: Luna presents in the office as a new patient for abdominal pains. CC: She states in the [place] she had to go once a month to have something scraped in her rectum. She states that she has white spots that were there before and she states that it is now going to her vaginal region and she states thats what it looked like when she was diagnosed prior. She is having issues with her stomach - when she eats she bloats up like she is . She has been having diarrhea and states she lives off imodium. 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 Pt moved from [place] a few years ago. Reports prev hx of anal SCC that was diagnosed in [place] in 2021 which was treated by Dr Rogelio Chaves. Reports started as white spots and is worried that they have returned. Has been seen by gen surg and anoscopy normal 07/2023. In addition, also reports chronic diarrhea that predates the anal SCC for which she had GI evaluation which was negative per her report. This is assoc with bloating and discomfort. No nausea or vomiting. Weight curve stable. Stools without blood in it. Last colo was 4-5 years ago per her recall. Labs reviewed: high cholesterol. Hypothyroid. Fam hx: Mat grandfather colon ca Mother: lung ca Sister: [facility] Medical History (Updated 01/29/24 @ 11:02 by Indu Hines MD) Mass of anus Rectal cancer Palpitations Anxiety 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 Lung cancer Aneurysm, cerebral Surgical History (Updated 01/29/24 @ 10:12 by YOLANDA De La Cruz) Hx of colonoscopy History of heart artery stent History of hysterectomy History of partial mastectomy of both breasts History of neck surgery Family History Mother High cholesterol Lung cancer Cardiovascular disease Paternal Grandmother Breast cancer Sister Non-Hodgkin lymphoma Maternal Grandfather Colon cancer Social History Household Members: Family Household Members Other:: sister, sister's boyfriend Both parents involved: No Caregiver staying overnight: No Housing: House Are you a primary care services manager to a significant other at home: No Do you presently have visiting nurse or other home services: No 75 years or older and lives alone: No Alcohol intake: current Alcohol intake frequency: a few times a month Alcohol type: beer and hard liquor Comment: on occasion Patient Tobacco Use Status: Former Tobacco user e-Cigarette/Vaping Use: Never Used Current occupational status: disabled Current occupational exposures/hazards: No Cognitive needs: No Hearing needs: Yes (Patient has hearing aids) Vision needs: Yes (Patient wears glasses) Review of Systems Const All systems reviewed & are unremarkable except as noted in HPI and below Physical Exam Vital Signs: Last Vital Signs Pulse 88 01/29/24 10:11 BP 132/60 01/29/24 10:11 BMI result Body Mass Index 28.7 No apparent distress Nonicteric Abdomen soft, nondistended rectal: Kamryn Tyler MA present as plate glass installer. No ext perianal tags or warts. Int hemorrhoids on digital exam. Alert and oriented x3, normal gait Assessment & Plan Assessment & Plan (1) Change in bowel habit: Code(s): R19.4 - Change in bowel habit Category: Medical (2) Atherosclerotic cardiovascular disease: Code(s): I25.10 - Atherosclerotic heart disease of [place] coronary artery without angina pectoris Category: Medical (3) Nocturnal hypoxemia: Code(s): G47.34 - Idiopathic sleep related nonobstructive alveolar hypoventilation Category: Medical (4) Abdominal pain: Code(s): R10.9 - Unspecified abdominal pain Category: Medical (5) Tachycardia: Code(s): R00.0 - Tachycardia, unspecified Category: Medical (6) Dyspnea on minimal exertion: Code(s): R06.09 - Other forms of dyspnea Category: Medical (7) History of lung cancer: Code(s): Z85.118 - Personal history of other malignant neoplasm of bronchus and lung Category: Medical (8) COPD (chronic obstructive pulmonary disease): Code(s): J44.9 - Chronic obstructive pulmonary disease, unspecified Category: Medical (9) History of anal cancer: Code(s): Z85.048 - Personal history of other malignant neoplasm of rectum, rectosigmoid junction, and anus Category: Medical Plan #Anal ca hx: No obv perianal lesions on my exam today or in-ano on anoscopy performed in July by Dr Kearns. Pt was reassured again. #GI sx: Ddx include IBD, microscopic colitis, SIBO, IBS. Plan: - Labs as below including TSH, celiac and fecal calpro - EGD and colo - Pt aware this will be booked after clearance from cardiology and pulm given background hx as outlined above #Low risk screening Pt also due for screening for chronic hep as per CDC guidelines. Follow up after procedures Orders: Orders Complete Blood Count no Diff Today R19.4 - Change in bowel habit Comprehensive Met. Panel Today R19.4 - Change in bowel habit Ferritin Today R19.4 - Change in bowel habit TSH reflex Free T4 Today R19.4 - Change in bowel habit Calprotectin, Fecal Today R19.4 - Change in bowel habit Lipid Panel Today I25.10 - Atherosclerotic heart disease of [place] coronary artery without angina pectoris Hepatitis B Surface Antigen Today Z00.00 - Encounter for general adult medical examination without abnormal findings Hepatitis C Antibody Today Z00.00 - Encounter for general adult medical examination without abnormal findings IRON PROFILE Today R19.4 - Change in bowel habit Vitamin B12 and Folate Today R19.4 - Change in bowel habit Transglutaminase IgA Today R19.4 - Change in bowel habit Immunoglobulin A Today R19.4 - Change in bowel habit C Reactive Protein Today R19.4 - Change in bowel habit Hemoglobin A1c Today I25.10 - Atherosclerotic heart disease of [place] coronary artery without angina pectoris Hepatitis A IgG Today Z00.00 - Encounter for general adult medical examination without abnormal findings Hepatitis B Core Antibody Today Z00.00 - Encounter for general adult medical examination without abnormal findings Hepatitis B Surface Antibody Today Z00.00 - Encounter for general adult medical examination without abnormal findings Medications: New peg 3350-electrolytes 236-22.74-6.74 -5.86 gram (Golytely) as per split prep instructions, until fecal effluent is clear 240 mL PO Q10M 4,000 mL 0RF colonoscopy Coding Level of Care Code New Pt Level 5 (57341) Complex EM visit Add On G2211 Diagnoses Change in bowel habit R19.4 Atherosclerotic cardiovascular disease I25.10 Nocturnal hypoxemia G47.34 Abdominal pain R10.9 Tachycardia R00.0 Dyspnea on minimal exertion R06.09 History of lung cancer Z85.118 COPD (chronic obstructive pulmonary disease) J44.9 History of anal cancer Z85.048
[2024-01-29 10:11] VITALS: BP 132/60; PULSE 88; BMI 28.7
== END 2024-01-29 11:22 | disposition home or self-care (01) ==
LOC: HO.HGI 10:07
PROVIDERS: PCP Family Medicine; Visit Provider Internal Medicine
DX: R10.9 Unspecified abdominal pain (principal); R19.4 Change in bowel habit; Z85.048 Personal history of other malignant neoplasm of rectum, rectosigmoid junction, and anus; J44.9 Chronic obstructive pulmonary disease, unspecified
CPT/HCPCS: 99204; G2211

== ENCOUNTER 2024-01-29 10:06 | Outpatient (REF) | payer MEDICARE, SELFPAY ==
[2024-01-29 12:54] LABS: Hematocrit 40.1 % (37.0-47.0); Hemoglobin 13.4 g/dl (12.0-16.0); Mean Corpuscular HGB Conc 33.4 g/dl (31.0-35.0); Mean Corpuscular Hemoglobin 29.3 pg (27.0-33.0); Mean Corpuscular Volume 87.7 fL (80.0-98.0); Mean Platelet Volume 8.5 fL (9.4-12.3); Platelet Count 211 X10*3/uL (160-400); Red Blood Count 4.57 X10*6/uL (4.20-5.50); White Blood Count 6.1 X10*3/uL (4.8-10.8)
[2024-01-29 13:05] LABS: Estimated Average Glucose 108 mg/dL; Hemoglobin A1C 122.5122 umol/L; Hemoglobin A1c % 5.4 % (<6.0); Total Hemoglobin (HGBA1C) 3419.8212 umol/L
[2024-01-29 13:29] LABS: Carbon Dioxide 23 mmol/L (22-29); Chloride 110 mmol/L (96-108); Sodium 141 mmol/L (135-145)
[2024-01-29 13:30] LABS: Alanine Aminotransferase 27 U/L (0-31); Albumin Level 4.3 g/dL (3.5-5.0); Alkaline Phosphatase 65 U/L (39-117); Anion Gap 12 (12-20); Aspartate Amino Transferase 35 U/L (5-31); Bilirubin Total 0.3 mg/dL (0.0-1.0); Blood Urea Nitrogen 18 mg/dL (9-16); C Reactive Protein 0.19 mg/dL (< or = 0.50); Calcium 9.9 mg/dL (8.4-10.2); Cholesterol 204 mg/dL (<200); Estimated Glomerular Filt Rate > 60; Glucose Random 73 mg/dL (60-115); HDL Cholesterol 41 mg/dL (>40); Iron 74 mcg/dL (30-160); LDL Cholesterol Calculated 116 mg/dL (<100); Percent Iron Saturation 25 % (15-50); Total Iron Binding Capacity 297 mcg/dL (228-428); Total Protein 8.1 g/dL (6.5-8.0); Triglycerides 238 mg/dL (<150); Unsaturated Iron Binding 223 ug/dL
[2024-01-29 13:40] LABS: Hepatitis A Antibody IgG Nonreactive (Nonreactive); ~Hepatitis A Antibody IgG 0.65 S/CO (0.00-0.99)
[2024-01-29 13:45] LABS: Ferritin 209 ng/mL (10-250); TSH reflex Free T4 3.17 uIU/mL (0.32-4.0)
[2024-01-29 13:53] LABS: Folate 13.9 ng/mL (> or = 4.0); Vitamin B12 727 pg/mL (200-900)
[2024-01-30 04:19] LABS: HBS Num1 88.23 mIU/mL (0-7.99); HBsAGNum1 0.31 S/CO (0.00-0.99); Hepatitis B Core Antibody Nonreactive (Nonreactive); Hepatitis B Surface Antigen Negative (Negative); ~HepC Num1 0.32 S/CO (0.00-0.79); ~Hepatitis B Surface Antibody REACTIVE (Nonreactive); ~Hepatitis C Antibody Nonreactive (Nonreactive)
[2024-01-30 09:48] LABS: Immunoglobulin A 267 mg/dL (70-320)
[2024-01-31 20:49] LABS: Transglutaminase IgA <1.0 U/mL
== END 2024-01-29 10:07 | disposition home or self-care (01) ==
LOC: HO.LAB 10:06
PROVIDERS: PCP Family Medicine; Visit Provider Internal Medicine
DX: Z00.00 Encounter for general adult medical examination without abnormal findings (principal); R19.4 Change in bowel habit; I25.10 Atherosclerotic heart disease of native coronary artery without angina pectoris; Z13.1 Encounter for screening for diabetes mellitus; G47.34 Idiopathic sleep related nonobstructive alveolar hypoventilation; R10.9 Unspecified abdominal pain; R00.0 Tachycardia, unspecified; R06.09 Other forms of dyspnea; Z85.118 Personal history of other malignant neoplasm of bronchus and lung; Z85.048 Personal history of other malignant neoplasm of rectum, rectosigmoid junction, and anus
CPT/HCPCS: 36415; 80053; 80061; 82607; 82728; 82746; 82784; 83036; 83540; 84443; 85027; 86140; 86364; 86704; 86706; 86708; 86803; 87340; 99202

== ENCOUNTER → 2024-02-14 09:19 | Outpatient (REF) | payer MEDICARE, SELFPAY ==
--- NOTE | ~2024-02-14 | NM_ITS ---
Lexiscan Myocardial perfusion study Indication: Chest pain to evaluate for myocardial ischemia Technique: The patient was brought in for a Lexiscan perfusion study on 02/14/2024 and was injected 0.4 mg of Lexiscan intravenously. Within a minute of this injection 25 mCi of sestamibi was given intravenously. Images were obtained using the SPECT gamma camera interlaced with the gating device. Images were obtained in supine position. Resting perfusion study was performed on 02/17/2024. Patient was administered 25 mCi of sestamibi intravenously at rest. Images were then obtained in supine position. Images obtained without without CT attenuation. Total DLP 152 mGy-cm. Images were processed with the software and compared side to side in short axis, horizontal long axis and vertical long axis views. Findings: The stress perfusion study showed nonattenuated images show very focal small area of minimally reduced uptake in the distal lateral wall of the LV myocardium. Remainder of the LV myocardium is normally perfused. Attenuated corrected images show normal uptake of radiotracer in all segments of the myocardium. There is suggestion of left ventricular hypertrophy. The gated study shows normal LV systolic function with calculated LVEF of 73%. LV cavity is normal in size. The gated study shows normal systolic wall thickening and contraction of segments. Resting study shows no significant change in perfusion pattern compared to stress perfusion study. Gating at rest reveals normal systolic wall motion with ejection fraction at 67%. The findings are consistent with likely normal myocardial perfusion. NM/NM cardiolite stress test Impression: 1. Myocardial perfusion imaging study shows likely normal myocardial perfusion 2. Gated LVEF is 67% 3. Transient ischemic dilatation not present Nondiagnostic changes on EKG. Electronically signed by: Dada Daley MD 02/17/2024 03:54 PM [facility] [place]
--- NOTE | 2024-02-14 09:23 | CA_ITS ---
Acquisition Time: 2024-02-14 09:47:44 Total Exercise Time: 00:02:29 Test Indications: R07.89 - Other chest pain Medications: Protocol: LEXISCAN Max HR: 096 BPM 63% of Pred: 152 BPM Max BP: 140/070 mmHG Max Work Load: 2.6 METS Pharmacological stress test with Lexiscan injection, while walking on treadmill 1.5 MPH, with severe SOB, no chest discomfort, with frequent PACs at baseline and in recovery, with nondiagnostic EKG for ischemia. O2 saturation 98% in early recovery. In recovery she was treated with Aminophylline 75mg IVP to reverse Lexiscan. She used her home inhaler. Breathing normalized. Nuclear images pending. Test reviewed with Dr Daley Referred By: Deysi Cevallos Overread By: DEYSI CEVALLOS
[2024-02-22 17:38] LABS: Calprotectin, Fecal 11 mcg/g
== END ==
LOC: HO.CARD 09:19
PROVIDERS: Internal Medicine; PCP Family Medicine; Visit Provider Nurse Practitioner Family
DX: R07.89 Other chest pain (principal); I25.10 Atherosclerotic heart disease of native coronary artery without angina pectoris; R06.02 Shortness of breath; R19.4 Change in bowel habit; Z95.5 Presence of coronary angioplasty implant and graft
CPT/HCPCS: 78452; 83993; 93017; A9500; J0280; J0461; J2785

== ENCOUNTER → 2024-02-14 09:23 | Outpatient (BNV) | payer MEDICARE, SELFPAY | PROVIDERS: PCP Family Medicine; Visit Provider Nurse Practitioner Family | DX: R06.02 Shortness of breath (principal); I49.1 Atrial premature depolarization | CPT/HCPCS: 78452; 93016; 93018 ==

== ENCOUNTER 2024-02-17 11:15 | Outpatient (REF) | payer MEDICARE, SELFPAY | END 2024-02-17 11:16 | disposition home or self-care (01) | LOC: HO.CT 11:15 | PROVIDERS: PCP Family Medicine; Visit Provider Nurse Practitioner Family | DX: Z13.89 Encounter for screening for other disorder (principal) ==

== ENCOUNTER 2024-02-24 12:54 | Outpatient (REF) | payer MEDICARE, SELFPAY | END 2024-02-24 12:55 | disposition home or self-care (01) | LOC: HO.CT 12:54 | PROVIDERS: PCP Family Medicine; Visit Provider Nurse Practitioner Family | DX: R91.1 Solitary pulmonary nodule (principal) | CPT/HCPCS: 71250 ==

== ENCOUNTER → 2024-02-24 12:56 | Outpatient (BNV) | payer MEDICARE, SELFPAY | PROVIDERS: PCP Family Medicine; Visit Provider Radiology Diagnostic Radiology | DX: R91.1 Solitary pulmonary nodule (principal) | CPT/HCPCS: 71250 ==

== ENCOUNTER 2024-03-26 15:00 | Outpatient (AMB) | payer MEDICARE, SELFPAY ==
--- NOTE | 2024-03-26 15:01 | A.OFFVIS_ITS ---
Vital Signs 03/26/24 15:02 Height 5 ft 1 in Weight 152 lb 1.903 oz BMI 28.7 BP 120/68 Blood Pressure Location Lt brachial Position Sitting Pulse 88 Pulse Source Pulse Oximeter Intake Visit Reasons: 3 mth f/up stress test Allergies albuterol Allergy (Mild, Verified 01/29/24 10:12) headache, coded on operating table diphtheria,tetanus,poliomyelitis va Allergy (Mild, Verified 01/29/24 10:12) Swelling solumedrol Allergy (Mild, Uncoded 01/29/24 10:12) Anaphylaxis Medication List - Last Reconciled 03/26/24 by Deysi Cevallos, SHANTELL-C aspirin 81 mg PO DAILY 90 days clopidogrel 75 mg PO DAILY ezetimibe (Zetia) 10 mg PO DAILY cjnyqvjqnia-rzfymlgaq-cvfvymlu 100-62.5-25 mcg (Trelegy Ellipta) 1 inh inha lation DAILY dnopnkbdrdb-bmyxvegfz-mildpews 200-62.5-25 mcg (Trelegy Ellipta) 1 inh inhalation DAILY meclizine (Dramamine (meclizine)) 25 mg PO DAILY PRN 30 days meloxicam 15 mg PO DAILY PRN 30 days metoprolol succinate ER 25 mg PO DAILY nitroglycerin 0.4 mg sublingual Q5M PRN 30 days peg 3350-electrolytes 236-22.74-6.74 -5.86 gram (Golytely) 240 mL PO Q10M rosuvastatin 40 mg PO DAILY 90 days sertraline 200 mg (2 x 100 mg) PO DAILY 90 days HPI HPI 3 mth f/up stress test: Details: Luna is a 68-year-old female with past medical history of hyperlipidemia, coronary artery disease with RCA stent 2007, lung CA status post lobectomy, rectal CA who previously lived in [place] and has been living in this area for 2 years. On prior visit she reported chest tightness and underwent a nuclear stress test and now presents for follow-up. Today she reports that she has chronic shortness of breath with activity. She has some chest congestion and intermittent cough today but tells me this is always present. She used to our oxygen when she lived in [place] but she says the testing done in [place] does not show that she qualifies for oxygen. She sleeps with her head of the bed elevated which is her norm. She continues to get some chest tightness that occurs when she is feeling short of breath. She is mostly sedentary and does not do anything exertional. She will feel occassional heart palpitations like skipped beats. No sustained rapid or irregular rates. She has dizziness when she bends over then stands up. No presyncope, syncope. She reports compliance with her medications. No bleeding issues reported. [facility] Medical History (Updated 03/26/24 @ 17:50 by Deysi Cevallos NP-C) Mass of anus Rectal cancer Palpitations Anxiety 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 Lung cancer Aneurysm, cerebral Surgical History Hx of colonoscopy History of heart artery stent History of hysterectomy History of partial mastectomy of both breasts History of neck surgery Family History Mother High cholesterol Lung cancer Cardiovascular disease Paternal Grandmother Breast cancer Sister Non-Hodgkin lymphoma Maternal Grandfather Colon cancer Social History Household Members: Family Household Members Other:: sister, sister's boyfriend Both parents involved: No Caregiver staying overnight: No Housing: House Are you a primary home care manager rn to a significant other at home: No Do you presently have visiting nurse or other home services: No 75 years or older and lives alone: No Alcohol intake: current Alcohol intake frequency: a few times a month Alcohol type: beer and hard liquor Comment: on occasion Patient Tobacco Use Status: Former Tobacco user e-Cigarette/Vaping Use: Never Used Current occupational status: disabled Current occupational exposures/hazards: No Cognitive needs: No Hearing needs: Yes (Patient has hearing aids) Vision needs: Yes (Patient wears glasses) Review of Systems Const All systems reviewed & are unremarkable except as noted in HPI and below Denies weakness ENT Reports dizziness Card Denies chest pain, Denies chest pain with activity, Denies syncope, Denies rapid heart rate, Denies pedal edema, Denies edema, Denies leg edema, Denies lightheadedness, Denies palpitations, Reports dyspnea, Reports dyspnea on exertion and Denies orthopnea Resp Reports cough, Reports dyspnea and Reports dyspnea on exertion GI Denies hematochezia and Denies change in stool character Musc Denies abnormal gait, Denies muscle cramps, Denies muscle weakness, Denies numbness, Denies radiating pain into limb and Denies tingling Neuro Denies abnormal gait, Reports dizziness, Denies syncope, Denies numbness, Denies tingling and Denies weakness Endo Denies palpitations Physical Exam Vital Signs: Last Vital Signs Pulse 88 03/26/24 15:02 BP 120/68 03/26/24 15:02 BMI result Body Mass Index 28.7 Const General: cooperative, healthy appearing, comfortable and no acute distress Orientation/consciousness: patient oriented x3 Neck Neck: Yes normal visual inspection and Yes no JVD Resp Effort & Inspection: normal respiratory effort Auscultation: clear to auscultation bilaterally, no rales, no rhonchi and no wheezes Cardio Rate: regular rate Rhythm: regular rhythm Heart sounds: S1 normal heart sound present, S2 normal heart sound present, no murmurs and no rubs Neuro General: patient oriented x3 Extrem General: Yes normal to inspection Psych Appearance: grossly normal Mental Status: mental status grossly normal Speech and movement: Normal speech and movement present Assessment & Plan Assessment & Plan (1) Atherosclerotic cardiovascular disease: Code(s): I25.10 - Atherosclerotic heart disease of [place] coronary artery without angina pectoris Category: Medical Plan: History of CAD, RCA stent placed 2007. She was residing in [place] at that time. She moved to this area 2 years ago. She was seen in cardiology consultation 10/23/2023. Her records from [place] have been obtained and I did review most of it, as the quantity is excessive. An echocardiogram was done here 09/17/2023 showing EF 60-65%, impaired relaxation, normal valves, normal RV, no regional wall motion abnormalities. A Holter monitor done for 3 days on 11/01/2023 showed sinus rhythm with average heart rate 63, frequent SVE, burden 15%, rare ventricular ectopy. A nuclear stress test was done 02/14/2024 showing normal myocardial perfusion imaging. She continues on aspirin, Plavix, metoprolol XL 25 mg daily and rosuvastatin 40 mg daily. Labs done 02/08/2024 showed LDL 116. Zetia was added following that result. She is due for a repeat lipid profile later this month. She continues to report some tightness in her chest that occurs when she is short of breath. It is most likely related to her COPD. No med changes made at this time. Signs and symptoms of angina reviewed. Emergency care if ever needed for symptoms. Cardiology follow-up in 6 months, sooner if needed. (2) Presence of stent in coronary artery in patient with coronary artery disease: Comment: Right coronary stent 2007 Code(s): I25.10 - Atherosclerotic heart disease of [place] coronary artery without angina pectoris; Z95.5 - Presence of coronary angioplasty implant and graft Category: Medical Plan: As above (3) PAC (premature atrial contraction): Code(s): I49.1 - Atrial premature depolarization Category: Medical Plan: Frequent PACs seen on Holter monitor. She does feel intermittent brief palpitations. She is on low-dose metoprolol. Her dose had previously been reduced due to sinus bradycardia. At this time she can continue on current dose, metoprolol XL 25 mg daily. Reviewed reduction in caffeinated beverages, maintain good hydration and get adequate rest. (4) Chest discomfort: Code(s): R07.89 - Other chest pain Category: Medical Plan: As above (5) Shortness of breath: Code(s): R06.02 - Shortness of breath Category: Medical Plan: Chronic shortness of breath related to COPD and she reports history of lung cancer with prior lobectomy. She had been on oxygen supplement for many years while in [place] however has not used oxygen since moving to this area 2 years ago. She currently follows with pulmonology. Oxygen saturation 95%, checked by me. (6) COPD (chronic obstructive pulmonary disease): Code(s): J44.9 - Chronic obstructive pulmonary disease, unspecified Category: Medical Plan: As above (7) History of lung cancer: Code(s): Z85.118 - Personal history of other malignant neoplasm of bronchus and lung Category: Medical Plan: As above (8) Rectal carcinoma: Comment: had anal scc Code(s): C20 - Malignant neoplasm of rectum Category: Medical Plan: History of rectal carcinoma. She has been seen by Dr. Kearns, surgery department, without evidence of active Ca. She has been seen by Dr. Griggs, GI and plans are for an upper endoscopy and colonoscopy. (9) 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: Comment: Stents placed; [facility] Code(s): I70.203 - Unspecified atherosclerosis of [place] arteries of extremities, bilateral legs Category: Medical Plan: Patient tells me she has stents in each lower extremity. No reports of claudication. She is on aspirin and Plavix as well as rosuvastatin. She does not follow with vascular. Will check a lower extremity arterial ultrasound, including iliacs. Plan to call her with the results. Plan to review results and refer to vascular if appropriate. (10) Preop cardiovascular exam: Code(s): Z01.810 - Encounter for preprocedural cardiovascular examination Category: Medical Plan: Preop for upper and lower endoscopy with Dr. Griggs in the near future. Patient can proceed with low cardiac risk. Aspirin and Plavix can be held as needed for the procedure and restart as soon as cleared by surgeon to do so. Continue metoprolol and statin. Plan Time spent on chart review, documentation, interview and assessment Orders: Orders US arterial duplex LE BI Today I70.203 - Unspecified atherosclerosis of [place] arteries of extremities, bilateral legs Medications: Changed From metoprolol succinate ER Dose reduced 25 mg PO DAILY To metoprolol succinate ER Dose reduced 25 mg PO DAILY 90 tabs 1RF 90 days Coding Level of Care Code Est Pt Level 4 (10061) Complex EM visit Add On G2211 Diagnoses Atherosclerotic cardiovascular disease I25.10 Presence of stent in coronary artery in patient with coronary artery disease I25.10; Z95.5 PAC (premature atrial contraction) I49.1 Chest discomfort R07.89 Shortness of breath R06.02 COPD (chronic obstructive pulmonary disease) J44.9 History of lung cancer Z85.118 Rectal carcinoma C20 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 I70.203 Preop cardiovascular exam Z01.810 Time Spent (min) 32
[2024-03-26 15:02] VITALS: BP 120/68; PULSE 88; BMI 28.7
== END 2024-03-26 15:35 | disposition home or self-care (01) ==
PROVIDERS: PCP Family Medicine; Visit Provider Nurse Practitioner Family
DX: I25.10 Atherosclerotic heart disease of native coronary artery without angina pectoris (principal); Z95.5 Presence of coronary angioplasty implant and graft; I49.1 Atrial premature depolarization; R07.89 Other chest pain; R06.02 Shortness of breath; J44.9 Chronic obstructive pulmonary disease, unspecified; Z85.118 Personal history of other malignant neoplasm of bronchus and lung; C20 Malignant neoplasm of rectum; I70.203 Unspecified atherosclerosis of native arteries of extremities, bilateral legs; Z01.810 Encounter for preprocedural cardiovascular examination
CPT/HCPCS: 99214; G2211

== ENCOUNTER → 2024-03-26 15:00 | Outpatient (BNVA) | payer MEDICARE, OTHER, SELFPAY | PROVIDERS: PCP Family Medicine; Visit Provider Nurse Practitioner Family | DX: Z01.810 Encounter for preprocedural cardiovascular examination (principal); I25.10 Atherosclerotic heart disease of native coronary artery without angina pectoris; I49.1 Atrial premature depolarization; I70.203 Unspecified atherosclerosis of native arteries of extremities, bilateral legs; R07.89 Other chest pain; R06.02 Shortness of breath; C20 Malignant neoplasm of rectum; J44.9 Chronic obstructive pulmonary disease, unspecified; Z85.118 Personal history of other malignant neoplasm of bronchus and lung; Z95.5 Presence of coronary angioplasty implant and graft | CPT/HCPCS: 99212 ==

== ENCOUNTER 2024-05-18 14:22 | Outpatient (REF) | payer MEDICARE, SELFPAY ==
--- NOTE | ~2024-05-18 | US_ITS ---
EXAMINATION: COLOR-FLOW DUPLEX IMAGING OF THE BILATERAL LOWER EXTREMITY ARTERIAL SYSTEM. VELOCITY MEASUREMENTS THROUGHOUT THE FEMORAL ARTERIES. CLINICAL INFORMATION: Unspecified atherosclerosis of [place] arteries of extremities. Hyperlipidemia. History of right coronary artery stent. Per patient history, she states she has had bilateral stents done in [place]. FINDINGS: Atheromatous Plaque: Moderate degree of calcified and soft scattered plaque. Stents were not seen on this examination. 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 This spans an estimated length of 3.7 cm. RIGHT ILIOFEMORAL RUNOFF VELOCITIES: The right iliac artery measures 282 cm/s, with biphasic waveforms. (Probable severe stenosis) The right common femoral artery measures 216 cm/s and biphasic. (Probable severe stenosis) The right profunda femoral artery is 88 cm/s and is biphasic. The right proximal superficial femoral artery measures 128 cm/s and biphasic. (Mild stenosis) The right mid superficial femoral artery is 118 cm/s and biphasic. The right distal right superficial femoral artery measures 75 cm/s and is biphasic. The right popliteal velocity measures 54 cm/s and is biphasic. The right posterior tibial artery velocity measures 52 cm/s and is biphasic. LEFT ILIOFEMORAL RUNOFF VELOCITIES: The left iliac artery measures 205 cm/s, with biphasic waveforms. (Probable severe stenosis) The left common femoral artery measures 167 cm/s and biphasic. (Moderate stenosis) The left profunda femoral artery is 128 cm/s and is triphasic. The left proximal superficial femoral artery measures 128 cm/s and biphasic. (Mild stenosis) The left mid superficial femoral artery is 90 cm/s and triphasic. The left distal right superficial femoral artery measures 98 cm/s and is biphasic. The left popliteal velocity measures 91 cm/s and is biphasic. The left posterior tibial artery velocity measures 58 cm/s and is biphasic. US/US arterial duplex LE BI IMPRESSION: 1. The presence of biphasic waveforms in the iliac arteries with elevated peak systolic velocities indicates probable inflow stenoses within the proximal iliac arteries and/or within the abdominal aorta. 2. Elevated systolic velocities right greater than left common femoral arteries. Biphasic waveforms. This indicates probable moderate left and mild right stenosis. 3. Suggestion of mild stenoses of the proximal bilateral superficial femoral arteries. 4. Incidentally noted infrarenal aortic fusiform aneurysm measuring 3.4 x 2.8 cm. 5. Per history the patient has had bilateral stents, although no stents were visualized on this examination. There is no prior imaging studies to compare. Electronically signed by: Mustapha Alfaro MD 05/20/2024 10:11 AM SAMI
--- OUTSIDE RECORDS SUMMARY | 2024-05-18 16:34 | XMS_ITS | Patient Health Record ---
Author Organization [facility] Address [address], [place] [id number] Care Team Providers Care Vac Press Operator Name Role Phone No, PCP Primary Care Provider Unavailabl e [facility] Unavailable [phone] [facility] Unavailable [phone] Reason For Referral No Information Plan Of Treatment No Information Insurance Providers Payer Name Payer Address Payer Phone Subscriber Number Group Number Insured Name Patient Relationship to Insured Coverage Start Date Coverage End Date [address] [phone] -[facility] [id number] Luna Claros Self - patient is the insured 4 5
--- OUTSIDE RECORDS SUMMARY | 2024-05-18 16:34 | XMS_ITS | Continuity of Care Document ---
Author Organization [facility] Address [address] [place] [address] Phone Care Team Providers Care Crime Lab Analyst Name Role Phone Cricket Zimmerman Unavailable Unavailable [...] Abnormal Flag Status Commen ts Panel Description: [id number] Final Image Zeiss Result 1 Advance Directives Directive Yes / No Effective Date File Name No Information Encounters Encounter Description Practice Location Reason(s) For Visit Diagnoses Date Provider Providers Copied on Encounter [facility], [address], [place], [id number] , [place] tel:[phone] [facility] decreased vision (chief complaint) Age-related nuclear cataract, bilateralOcular hypertension, bilateralOpen angle with borderline findings, low risk, bilateralPresbyopia Oct-0 8 Elsie Harley. [address] [place] [address], [id number], [place]. tel:[phone] Referring Provider: Cricket Zimmerman, [address] [place], [address] . tel:[phone] Family History Family Member Type Diagnosis Age [...] ADD/ADHD Payers Payer name Insurance type Covered constitution party ID Authoriza tion(s) No Information Social [...] any drops.Pt states when she was in [place] over 5 year ago she was treated for glaucoma w/ drop tx, since she has been in [place] and seen 3 different eye doctors they [...] any drops.Pt states when she was in [place] over 5 year ago she was treated for glaucoma w/ drop tx, since she has been in [place] and seen 3 different eye doctors they [...]
--- OUTSIDE RECORDS SUMMARY | 2024-05-18 16:34 | XMS_ITS ---
Author Organization [facility] Address [address] [place], [place] [id number] Care Team Providers Care Biology Professor Name Role Phone No, PCP Primary Care Provider Unavailabl e [facility], [facility] Unavailable [phone] [facility], Nursing Unavailable [phone] REASON FOR VISIT Phone : intake Encounters Encounter Location Date Provider Diagnosis [id number] [place], [place] [id number] 06/14/2023 Nursing [facility] Plan Of Treatment No Information Progress Notes * Ger CLAROSOB:[birth year] (68 yo F)Acc No.[id number]:06/14/2023 Progress Notes Patient:?RONDAVILLA Luna Provider:?Provider [facility] :1955???Age:67 Y???Sex:Female D ate:06/14/2023 Address:[address] [place] [address] [facility] Pcp:PCP No Subjective: * Chief Complaints: * ???1. Phone : intake. * Medical History:? Objective: * Vitals:? Assessment: Plan: * Treatment: * Images: Billing Information: * Visit Code:? * Procedure Codes:? * Electronic signature of Nurs [facility] on 05/18/2024 at 04:33 PM EST Sign off status: Pending * Provider:?Provider [facility] Date:?06/14/2023 Generated for Radha rojas/Pamela/eTlanresmitting on:?05/18/2024 04:33 PM EST
== END 2024-05-18 14:23 | disposition home or self-care (01) ==
LOC: HO.US 14:22
PROVIDERS: PCP Family Medicine; Visit Provider Nurse Practitioner Family
DX: I70.203 Unspecified atherosclerosis of native arteries of extremities, bilateral legs (principal)
CPT/HCPCS: 93925

== ENCOUNTER → 2024-05-18 14:24 | Outpatient (BNV) | payer MEDICARE, SELFPAY | PROVIDERS: PCP Family Medicine; Visit Provider Radiology Diagnostic Radiology | DX: I70.203 Unspecified atherosclerosis of native arteries of extremities, bilateral legs (principal); I25.10 Atherosclerotic heart disease of native coronary artery without angina pectoris | CPT/HCPCS: 93925 ==

== ENCOUNTER 2024-06-18 12:40 | Outpatient (AMB) | payer MEDICARE, SELFPAY ==
--- NOTE | 2024-06-18 13:01 | MHC.OFFVIS ---
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 Both legs feel as if they are burning they achey, equilibrium off. Right leg is worse. Legs feel heavy when walking. 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 Her abdominal aneurysm is currently small, measuring around 3.8 cm, and was revealed during a recent ultrasound evaluation. She reports experiencing claudication symptoms in the lower extremities, especially following previous stent placement in both legs four years ago due to initial walking impairments. Despite bilateral stent interventions done while in [place], the patient's leg symptoms have progressively worsened, now resulting in ambulation limited to about 15 yd due to breathlessness and perceived leg instability. She has aortoiliac ultrasound Additionally, the patient has ceased smoking three years ago and has no history of diabetes. She does see a pullman conductor regarding her respiratory issues. She is being maintained on aspirin Plavix and statin. She now presents for vascular evaluation. 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 Lung cancer Aneurysm, cerebral Surgical History Hx of colonoscopy History of heart artery stent History of hysterectomy History of partial mastectomy of both breasts History of neck surgery Family History Mother High cholesterol Lung cancer Cardiovascular disease Paternal Grandmother Breast cancer Sister Non-Hodgkin lymphoma Maternal Grandfather Colon cancer Social History Household Members: Family Household Members Other:: sister, sister's boyfriend Both parents involved: No Caregiver staying overnight: No Housing: House Are you a primary day care center director to a significant other at home: No Do you presently have visiting nurse or other home services: No 75 years or older and lives alone: No Alcohol intake: current Alcohol intake frequency: a few times a month Alcohol type: beer and hard liquor Comment: on occasion Patient Tobacco Use Status: Former Tobacco user e-Cigarette/Vaping Use: Never Used Current occupational status: disabled Current occupational exposures/hazards: No Cognitive needs: No Hearing needs: Yes (Patient has hearing aids) Vision needs: Yes (Patient wears glasses) Review of Systems Const All systems reviewed & are unremarkable except as noted in HPI and below Reports no additional complaints ENT Reports Normal hearing present Card Denies chest pain, Denies chest pain at rest, Denies chest pain with activity and Denies pedal edema Resp Denies cough GI Denies abdominal pain Musc Denies abnormal gait, Denies muscle cramps and Denies radiating pain into limb Skin/Breast Denies skin ulcer and Denies wounds Neuro Reports Normal hearing present and Denies abnormal gait Psych Reports no additional complaints Physical Exam Vital Signs: BMI result Body Mass Index 28.5 Const General: cooperative, healthy appearing and comfortable Orientation/consciousness: oriented to person, oriented to place and oriented to time HEENT Head: Yes normal to inspection Neck Neck: Yes normal visual inspection Carotids: no bruits Chest Chest palpation & inspection: normal inspection of the chest Resp Effort & Inspection: normal respiratory effort and able to speak in complete sentences Auscultation: clear to auscultation bilaterally, no crackles, no rales, no rhonchi and no wheezes Cardio Other: Bilateral DP signals Rate: regular rate Rhythm: regular rhythm Heart sounds: S1 normal heart sound present and S2 normal heart sound present Bruits: no carotid bruits Peripheral pulses: Peripheral pulses 2+ throughout GI Inspection: Yes normal to inspection Skin Wounds: no wounds Hair: normal Neuro General: oriented to person, oriented to place and oriented to time Cranial nerves: Yes CN's II-XII intact bilaterally and Yes Normal hearing present Cognition (Neuro): normal cognition Motor exam (neuro): 5/5 motor strength present throughout Extrem Other: venous exam: No significant superficial varicosities or spider telangiectasias, minimal edema General: No clubbing, No cyanosis and No edema Psych Appearance: grossly normal Mental Status: mental status grossly normal Speech and movement: Normal speech and movement present Results Reviewed Results Reviewed: Ultrasound dated 05/18/2024 demonstrates a 3.4 cm aortic aneurysm concern of inflow with iliac stenosis. Written report and images were reviewed Assessment & Plan Assessment & Plan (1) PAD (peripheral artery disease): Comment: 2020 - questionable iliac stenting in [place] Code(s): I73.9 - Peripheral vascular disease, unspecified Category: Medical Plan: In short patient has claudication. I did review the pathophysiology of peripheral vascular disease with the patient. In addition we did discuss routine conservative measures including a healthy diet and the importance of exercise and ambulation. We did discuss risk factor modification. To better elucidate the location of stenosis and questionable prior interventions I have taken the liberty of ordering a CT angiogram. This will also better elucidate the aortic aneurysm as well. She will follow up with us after testing. Thank you for allowing us to assist in her care. If there are any questions or concerns please do not hesitate to contact us. (2) AAA (abdominal aortic aneurysm) without rupture: Code(s): I71.40 - Abdominal aortic aneurysm, without rupture, unspecified Category: Medical Qualifiers: Abdominal aorta location: infrarenal aorta Qualified Code(s): I71.43 - Infrarenal abdominal aortic aneurysm, without rupture Plan: See above. Will get CT angiogram Orders: Orders Blood Urea Nitrogen Today I73.9 - Peripheral vascular disease, unspecified Creatinine Today I73.9 - Peripheral vascular disease, unspecified CT angio abd aorta runoff 1 Week I73.9 - Peripheral vascular disease, unspecified Coding Level of Care Code New Pt Level 4 (75757) Complex EM visit Add On G2211 Diagnoses PAD (peripheral artery disease) I73.9 Infrarenal abdominal aortic aneurysm (AAA) without rupture I71.43 Abdominal aorta location: infrarenal aorta
[2024-06-18 13:04] VITALS: BMI 28.5
--- OUTSIDE RECORDS SUMMARY | 2024-06-18 15:45 | XMS_ITS ---
Author Organization [facility] Address [address], [place] [id number] Care Team Providers Care General I Farmworker Name Role Phone No, PCP Primary Care Provider Unavailabl e [facility], [facility] Unavailable [phone] [facility], Nursing Unavailable [phone] REASON FOR VISIT Phone : intake Encounters Encounter Location Date Provider Diagnosis [facility] [address], [place] [phone] 06/14/2023 Nursing [facility] Plan Of Treatment No Information Progress Notes * Ger CLAROSOB:[birth year] (68 yo F)Acc No.[id number]:06/14/2023 Progress Notes Patient:?RONDAVILLA Luna Provider:?Provider [facility] :1955???Age:67 Y???Sex:Female D ate:06/14/2023 Address:[address] [place] [address] [facility] Pcp:PCP No Subjective: * Chief Complaints: * ???1. Phone : intake. * Medical History:? Objective: * Vitals:? Assessment: Plan: * Treatment: * Images: Billing Information: * Visit Code:? * Procedure Codes:? * Electronic signature of Nurs [facility] on 06/18/2024 at 03:45 PM EDT Sign off status: Pending * Provider:?Provider [facility] Date:?06/14/2023 Generated for Radha rojas/Pamela/eTlanresmitting on:?06/18/2024 03:45 PM EDT
--- OUTSIDE RECORDS SUMMARY | 2024-06-18 15:45 | XMS_ITS | Patient Health Record ---
Author Organization [facility] Address [address] [place], [place] [id number] Care Team Providers Care Supervisor Pig Machine Name Role Phone No, PCP Primary Care Provider Unavailabl e [facility], [facility] Unavailable [phone] Reason For Referral No Information Plan Of Treatment No Information Insurance Providers Payer Name Payer Address Payer Phone Subscriber Number Group Number Insured Name Patient Relationship to Insured Coverage Start Date Coverage End Date [facility] Care [address] [phone] [id number] Luna Claros Self - patient is the insured 4 5
== END 2024-06-18 13:48 | disposition home or self-care (01) ==
LOC: HO.HVS 12:40
PROVIDERS: PCP Family Medicine; Visit Provider Surgery Vascular Surgery
DX: I73.9 Peripheral vascular disease, unspecified (principal); I71.43 Infrarenal abdominal aortic aneurysm, without rupture
CPT/HCPCS: 99204; G2211

== ENCOUNTER → 2024-06-18 12:40 | Outpatient (BNVA) | payer MEDICARE, SELFPAY | PROVIDERS: PCP Family Medicine; Visit Provider Surgery Vascular Surgery | DX: I73.9 Peripheral vascular disease, unspecified (principal); I71.43 Infrarenal abdominal aortic aneurysm, without rupture | CPT/HCPCS: 99202 ==

== ENCOUNTER 2024-07-02 09:56 | Outpatient (REF) | payer MEDICARE, SELFPAY ==
--- OUTSIDE RECORDS SUMMARY | 2024-07-02 11:27 | XMS_ITS ---
Author Organization [facility] Address [address], [place] [id number] Care Team Providers Care Principal Cloud Architect Name Role Phone No, PCP Primary Care Provider Unavailabl e [facility], [facility] Unavailable [phone] [facility], Nursing Unavailable [phone] REASON FOR VISIT Phone : intake Encounters Encounter Location Date Provider Diagnosis [facility] [address], [place] [phone] 06/14/2023 Nursing [facility] Plan Of Treatment No Information Progress Notes * Ger CLAROSOB:[birth year] (68 yo F)Acc No.[id number]:06/14/2023 Progress Notes Patient:?RONDAVILLA Luna Provider:?Provider [facility] :1955???Age:67 Y???Sex:Female D ate:06/14/2023 Address:[address] [place] [address] [facility] Pcp:PCP No Subjective: * Chief Complaints: * ???1. Phone : intake. * Medical History:? Objective: * Vitals:? Assessment: Plan: * Treatment: * Images: Billing Information: * Visit Code:? * Procedure Codes:? * Electronic signature of Nurs [facility] on 07/02/2024 at 11:26 AM EDT Sign off status: Pending * Provider:?Provider [facility] Date:?06/14/2023 Generated for Radha rojas/Pamela/eTlanresmmainor on:?07/02/2024 11:26 AM EDT
--- OUTSIDE RECORDS SUMMARY | 2024-07-02 11:27 | XMS_ITS | Patient Health Record ---
Author Organization [facility] Address [address], [place] [id number] Care Team Providers Care Buck Swamper Name Role Phone No, PCP Primary Care Provider Unavailabl e [facility], [facility] Unavailable [phone] Reason For Referral No Information Plan Of Treatment No Information Insurance Providers Payer Name Payer Address Payer Phone Subscriber Number Group Number Insured Name Patient Relationship to Insured Coverage Start Date Coverage End Date [facility] Care [address] [phone] [id number] Luna Claros Self - patient is the insured 4 5
[2024-07-02 12:32] LABS: Alanine Aminotransferase 24 U/L (0-31); Albumin Level 4.4 g/dL (3.5-5.0); Alkaline Phosphatase 55 U/L (39-117); Anion Gap 11 (12-20); Aspartate Amino Transferase 31 U/L (5-31); Bilirubin Total 0.5 mg/dL (0.0-1.0); Blood Urea Nitrogen 21 mg/dL (9-16); Calcium 9.6 mg/dL (8.4-10.2); Carbon Dioxide 29 mmol/L (22-29); Chloride 108 mmol/L (96-108); Cholesterol 134 mg/dL (<200); Estimated Glomerular Filt Rate 57; Glucose Fasting 87 mg/dL (60-99); HDL Cholesterol 41 mg/dL (>40); LDL Cholesterol Calculated 55 mg/dL (<100); Potassium 4.5 mmol/L (3.3-5.1); Sodium 143 mmol/L (135-145); Total Protein 7.7 g/dL (6.5-8.0); Triglycerides 194 mg/dL (<150)
[2024-07-02 12:50] LABS: Free T4 (Free Thyroxine) 0.92 ng/dL (0.71-1.85); TSH reflex Free T4 5.03 uIU/mL (0.32-4.0)
[2024-07-03 04:53] LABS: Triiodothyronine T3 Total 112 ng/dL (76-181)
== END 2024-07-02 09:57 | disposition home or self-care (01) ==
LOC: HO.WFDLDS 09:56
PROVIDERS: Referring Provider Surgery Vascular Surgery; Visit Provider Family Medicine
DX: Z00.00 Encounter for general adult medical examination without abnormal findings (principal); E03.9 Hypothyroidism, unspecified; E78.5 Hyperlipidemia, unspecified
CPT/HCPCS: 36415; 80053; 80061; 84439; 84443; 84480

== ENCOUNTER 2024-07-06 07:59 | Outpatient (AMB) | payer MEDICARE, SELFPAY ==
--- OUTSIDE RECORDS SUMMARY | 2024-07-06 08:04 | XMS_ITS ---
Author Organization [facility] Address [address], [place] [phone] Care Team Providers Care Vegetable Worker Name Role Phone No, PCP Primary Care Provider Unavailabl e [facility], [facility] Unavailable [phone] [facility], Nursing Unavailable [phone] REASON FOR VISIT Phone : intake Encounters Encounter Location Date Provider Diagnosis [facility] [address] [place], [place] [phone] 06/14/2023 Nursing [facility] Plan Of Treatment No Information Progress Notes * Ger CLAROSOB:[birth year] (68 yo F)Acc No.[id number]:06/14/2023 Progress Notes Patient:?RONDAVILLA Luna Provider:?Provider [facility] :1955???Age:67 Y???Sex:Female D ate:06/14/2023 Address:[address] [place] [address] [facility] Pcp:PCP No Subjective: * Chief Complaints: * ???1. Phone : intake. * Medical History:? Objective: * Vitals:? Assessment: Plan: * Treatment: * Images: Billing Information: * Visit Code:? * Procedure Codes:? * Electronic signature of Nurs [facility] on 07/06/2024 at 08:04 AM EDT Sign off status: Pending * Provider:?Provider [facility] Date:?06/14/2023 Generated for Radha rojas/Pamela/eTlanresmmainor on:?07/06/2024 08:04 AM EDT
--- OUTSIDE RECORDS SUMMARY | 2024-07-06 08:04 | XMS_ITS | Patient Health Record ---
Author Organization [facility] Address [address] [place], [place] [phone] Care Team Providers Care Attendant Honor Bar Name Role Phone No, PCP Primary Care Provider Unavailabl e [facility], [facility] Unavailable [phone] Reason For Referral No Information Plan Of Treatment No Information Insurance Providers Payer Name Payer Address Payer Phone Subscriber Number Group Number Insured Name Patient Relationship to Insured Coverage Start Date Coverage End Date [facility] Care [address] [phone] [id number] Luna Claros Self - patient is the insured 4 5
--- NOTE | 2024-07-06 08:36 | A.OFFPC_ITS ---
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 Required: No Allergies albuterol Allergy (Mild, Verified 07/06/24 08:37) headache, coded on operating table diphtheria,tetanus,poliomyelitis va Allergy (Mild, Verified 07/06/24 08:37) Swelling solumedrol Allergy (Mild, Uncoded 01/29/24 10:12) Anaphylaxis Medication List - Last Reconciled 07/06/24 by Devang Lepe MD aspirin 81 mg PO DAILY 90 days clopidogrel 75 mg PO DAILY ezetimibe 10 mg PO DAILY alpszpxqels-qgwyyliwl-yrpfbpgo 100-62.5-25 mcg (Trelegy Ellipta) 1 inh inhalation DAILY cjlmmztzpni-aonuuchho-dkhpfgkp 200-62.5-25 mcg (Trelegy Ellipta) 1 inh inhalation DAILY meloxicam 15 mg PO DAILY PRN 30 days metoprolol succinate ER 25 mg PO DAILY 90 days nitroglycerin 0.4 mg sublingual Q5M PRN 30 days peg 3350-electrolytes 236-22.74-6.74 -5.86 gram (Golytely) 240 mL PO Q10M rosuvastatin 40 mg PO DAILY 90 days sertraline 200 mg (2 x 100 mg) PO DAILY 90 days Tobacco use date assessed: 07/30/23 Fall risk assessment: 1 Fall in past year Last assessed Fall Risk: 07/06/24 Dental Screening Dental Screen Date: 07/30/23 HPI 2 month follow up for hyperlipidemia HPI Details 68 y/o female presents to f/u HLD, labs. Labs drawn 07/02/24. Reviewed labs with pt. Triglycerides 194. TC 134. LDL 55. HDL 41. TSH elevated at 5.03. She reports recent stressors. Mother has recently. She is on sertraline which she notes has been working well. She reports stenosis of artery of lower extremities - she follows up with Dr. Chan. 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 Lung cancer Aneurysm, cerebral Surgical History Hx of colonoscopy History of heart artery stent History of hysterectomy History of partial mastectomy of both breasts History of neck surgery Family History Mother High cholesterol Lung cancer Cardiovascular disease Paternal Grandmother Breast cancer Sister Non-Hodgkin lymphoma Maternal Grandfather Colon cancer Social History Household Members: Family Household Members Other:: sister, sister's boyfriend Both parents involved: No Caregiver staying overnight: No Housing: House Are you a primary home care aide to a significant other at home: No Do you presently have visiting nurse or other home services: No 75 years or older and lives alone: No Alcohol intake: current Alcohol intake frequency: a few times a month Alcohol type: beer and hard liquor Comment: on occasion Patient Tobacco Use Status: Former Tobacco user e-Cigarette/Vaping Use: Never Used Current occupational status: disabled Current occupational exposures/hazards: No Cognitive needs: No Hearing needs: Yes (Patient has hearing aids) Vision needs: Yes (Patient wears glasses) Questionnaire PHQ-9 Over the last 2 weeks, how often have you been bothered by any of the following problems? 1. Little interest or pleasure in doing things: several days 2. Feeling down, depressed, or hopeless: several days 3. Trouble falling or staying asleep, or sleeping too much: nearly every day 4. Feeling tired or having little energy: nearly every day 5. Poor appetite or overeating: nearly every day 6. Feeling bad about yourself - or that you are a failure or have let yourself or your family down: not at all 7. Trouble concentrating on things, such as reading the newspaper or watching television: not at all 8. Moving or speaking so slowly that other people could have noticed. Or the opposite - being so fidgety or restless that you have been moving around a lot more than usual: not at all 9. Thoughts that you would be better off or of hurting yourself in some way: not at all Total score: 11 Depression Screening Interpretation: Positive Depression Screening Follow-up: Declines treatment (Already on Sertraline and declines change or referral) Depression Screening Done: Yes 52677 - PHQ-9 Billing: Yes Source: Developed by Drs. Marlo Reed, Roxana Lopez, Justin Bruner and colleagues, with an educational north from [place]. Thrive Questionnaire Date Thrive assessed: 07/06/24 I am a: Patient What is your living situation today?: I have a steady place to live Within the past 12 months, did the food you bought not last and you didn't have the money to get more?: Never true Within the past 12 months, did you worry whether your food would run out before you got money to buy more?: Never true Do you have trouble paying for medicines?: No Do you have trouble getting transportation to medical appointments?: Yes Do you have trouble paying your heating and electricity bill?: Yes Do you have trouble taking care of your child, family member or friend?: No Do you have trouble with day-to-day activities such as bathing, preparing meals, shopping, managing finances, etc.?: No Are you currently unemployed and looking for a job?: No Are you interested in more education?: No Please select the resources that you would like help with: Transportation and Utilities Currently or been in a relationship where the following occur: No concerns reported THRIVE Score: 2 AUDIT C Alcohol Use Questionnaire (AUDIT-C) 1. How often do you have a drink containing alcohol?: Monthly or less 2. How many drinks containing alcohol do you have on a typical day when you are drinking?: 3 or 4 3. How often do you have six or more drinks on one occasion?: Never Total Score: 2 LEIGHANN-7 AMB Questionnaire LEIGHANN-7 Date LEIGHANN - 7 assessed: 07/06/24 Feeling nervous, anxious, or on edge: 3 = Nearly every day Not being able to stop or control worryin = Not at all Worrying too much about different things: 0 = Not at all Trouble relaxin = Not at all Being so restless that it is hard to sit still: 0 = Not at all Becoming easily annoyed or irritable: 0 = Not at all Feeling afraid as if something awful might happen: 0 = Not at all Total LEIGHANN-7 score (0-4 normal; 5-9 mild; 10-14 moderate; 15-21 severe): 3 Source: Developed by Drs. Marlo Reed, Roxana Lopez, Justin Bruner and colleagues, with an educational north from [place]. LEIGHANN-7 Assessment Billing LEIGHANN-7 Assessment Tool: LEIGHANN-7 Assessment 55054 Review of Systems Const Denies chills, Denies fatigue, Denies fever(s), Denies headache(s) and Denies weakness ENT Denies dizziness and Denies headache(s) Card Denies dyspnea Resp Denies cough, Denies dyspnea, Denies wheezing and Denies other (shortness of breath) Musc Denies numbness and Denies tingling Neuro Denies dizziness, Denies headache(s), Denies numbness, Denies tingling and Denies weakness Psych Denies anxiety and Denies depression Endo Denies fatigue Aller/Immun Denies wheezing Physical exam (Primary Care) Vital Signs: Last Vital Signs Temp 98.9 F 07/06/24 08:39 Pulse 82 07/06/24 08:39 Resp 14 07/06/24 08:39 BP 132/70 07/06/24 08:39 Pulse Ox 98 07/06/24 08:39 Oxygen Delivery Method Room Air 07/06/24 08:39 BMI result Body Mass Index 30.1 Tobacco/Smoking Status: Tobacco use Status Tobacco use date assessed 07/30/23 07/06/24 08:38 Patient Tobacco Use Status Former Tobacco user 07/06/24 08:38 e-Cigarette/Vaping Use Never Used 07/06/24 08:38 PHQ-9: PHQ-9 Score PHQ-9: Total score 11 07/06/24 08:41 Depression Screening Interpretation: Positive Depression Screening Follow-up: Declines treatment (Already on Sertraline and declines change or referral) Thrive Assessment: Date of Thrive Assessment Date Thrive assessed 07/06/24 07/06/24 08:41 Currently or been in a relationship where the following occur: No concerns reported Const General: well developed; No acute distress Nutritional Appearance: well nourished Orientation/consciousness: patient oriented x3 HENMT Head: Yes normocephalic and Yes atraumatic Eyes General: appearance normal, both eyes and all related structures Pupils: Equal, round and reactive pupils present EOM: EOMs intact bilaterally Resp Effort & Inspection: normal respiratory effort Auscultation: clear to auscultation bilaterally Cardio Rate: regular rate Rhythm: regular rhythm Heart sounds: S1 normal heart sound present, S2 normal heart sound present, no gallops, no murmurs and no rubs Neuro General: patient oriented x3 and gait normal Cranial nerves: Yes Equal, round and reactive pupils present Psych Affect: normal affect Coding Level of Care Code Est Pt Level 4 (04462) Diagnoses Hyperlipidemia E78.5 Anxiety and depression F41.9; F32.A PAD (peripheral artery disease) I73.9 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 I70.203 Elevated TSH R79.89 Obesity E66.9 Additional Codes LEIGHANN-7 Assessment Billing - LEIGHANN-7 Assessment Tool: LEIGHANN-7 Assessment 07458 ([id number]) PHQ-9 - 64699 - PHQ-9 Billing: Yes ([id number]) Assessment & Plan Assessment & Plan (1) Hyperlipidemia: Code(s): E78.5 - Hyperlipidemia, unspecified Category: Medical Plan: LDL?TC?and?HDL?within?normal?limits?and?LDL?is?at?goal?of?less?than?70. Triglycerides?mildly?elevated Continue?current?medication?regimen (2) Anxiety and depression: Code(s): F41.9 - Anxiety disorder, unspecified; F32.A - Depression, unspecified Category: Medical Plan: Controlled?with?sertraline. Patient?declines?further?treatment (3) PAD (peripheral artery disease): Comment: 2020 - questionable iliac stenting in [place] Code(s): I73.9 - Peripheral vascular disease, unspecified Category: Medical Plan: Followed?by? Undergoing?workup (4) 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: Comment: Stents placed; [facility] Code(s): I70.203 - Unspecified atherosclerosis of [place] arteries of extremities, bilateral legs Category: Medical Plan: As?above (5) Elevated TSH: Code(s): R79.89 - Other specified abnormal findings of blood chemistry Category: Medical Plan: Fluctuating?TSH?levels. T4?and?T3?within?normal?range Will?repeat?in?2?months. (6) Obesity: Code(s): E66.9 - Obesity, unspecified Category: Medical Plan: Patient?would?like?to?discuss?weight?loss?at?next/subsequent?visit.
[2024-07-06 08:39] VITALS: BP 132/70; PULSE 82; RESP 14; TEMP 37.2; O2SAT 98; BMI 30.1
== END 2024-07-06 09:04 | disposition home or self-care (01) ==
LOC: HO.HMCFM 07:59
PROVIDERS: PCP Family Medicine; Visit Provider Family Medicine
DX: E78.5 Hyperlipidemia, unspecified (principal); I73.9 Peripheral vascular disease, unspecified; F41.9 Anxiety disorder, unspecified; F32.A Depression, unspecified; R79.89 Other specified abnormal findings of blood chemistry; E66.9 Obesity, unspecified

== ENCOUNTER → 2024-07-06 07:59 | Outpatient (BNVA) | payer MEDICARE, SELFPAY | PROVIDERS: PCP Family Medicine; Visit Provider Family Medicine | DX: E78.5 Hyperlipidemia, unspecified (principal); F41.9 Anxiety disorder, unspecified; F32.A Depression, unspecified; I73.9 Peripheral vascular disease, unspecified; E66.9 Obesity, unspecified; R79.89 Other specified abnormal findings of blood chemistry | CPT/HCPCS: 96127; 99212 ==

== ENCOUNTER 2024-08-13 09:04 | Outpatient (REF) | payer MEDICARE, SELFPAY ==
--- NOTE | ~2024-08-13 | CT_ITS ---
CLINICAL HISTORY: I73.9 - Peripheral vascular disease, unspecified --- Additional Notes or Special In structions: Please eval aortic aneurysm. Question of prior bilateral iliac stenting CT angiography abdomen and pelvis with bilateral lower extremity runoff using IV contrast. 3-D post processing. Comparison: None Findings: Vascular: The aorta demonstrates severe predominantly soft plaque with multifocal ectasia. The lower thoracic aorta measures up to 3.6 cm, mildly aneurysmal. The infrarenal abdominal aorta demonstrates a 3.4 x 3.3 cm aneurysm. This exhibits peripheral thrombus. The aortic bifurcation is moderately narrowed but patent. Patent renal arteries. The celiac artery and superior mesenteric artery are patent. Narrowing of the CARL origin however beyond this the vessel is patent but attenuated. Right lower extremity: Moderate tandem stenosis of the common iliac artery. There is a left external iliac artery stent with moderately severe stenosis of the proximal aspect, coronal image 47. The external iliac artery is patent. There is a tandem moderate stenosis. The hypogastric artery demonstrates severe stenosis. The profunda femoral and superficial femoral arteries are patent. There is mild multifocal tandem stenosis along the distal right SFA. The popliteal artery is patent. There is three-vessel runoff to the right foot. Left lower extremity: Moderate tandem stenosis along the left common and external iliac arteries. The hypogastric artery is patent. The left common femoral artery is patent. The profunda femoral artery is patent. The left SFA demonstrates mild and moderate tandem stenosis distally but remains patent. There is three-vessel runoff to the left foot. Nonvascular: Multiple pulmonary nodules are noted, for example right lower lobe on axial 2, measuring up to 6 mm. There is scarring of the right lung base peripherally and there is moderate centrilobular emphysema. The gallbladder is absent. The liver, spleen, adrenal glands and pancreas are unremarkable. Kidneys, ureters and bladder are normal. Moderate fecal retention. Normal appendix. No bowel obstruction or free air. No acute osseous finding. Impression: Moderate inflow disease with stenosis of the aortic bifurcation and origin of the right external iliac artery stent. Aneurysmal prominence of the lower thoracic aorta and 3.4 cm aneurysm of the infrarenal abdominal aorta. Additional vascular disease as detailed. Multiple pulmonary nodules, nonspecific. No comparison study. Dedicated chest CT versus comparison with outside imaging. This document has been electronically signed by: Meño Hernandez MD on 08/14/2024 11:12:34
--- OUTSIDE RECORDS SUMMARY | 2024-08-13 09:18 | XMS_ITS ---
Author Organization [facility] Address [address], [place] [id number] Care Team Providers Care Sliver Handler Name Role Phone No, PCP Primary Care Provider Unavailabl e [facility], [facility] Unavailable [phone] [facility], Nursing Unavailable [phone] REASON FOR VISIT Phone : intake Encounters Encounter Location Date Provider Diagnosis [facility] [address], [place] [id number] 06/14/2023 Nursing [facility] Plan Of Treatment No Information Progress Notes * Ger CLAROSOB:[birth year] (68 yo F)Acc No.[id number]:06/14/2023 Progress Notes Patient:?RONDAVILLA Luna Provider:?Provider [facility] :1955???Age:67 Y???Sex:Female D ate:06/14/2023 Address:[address] [place] [address] [facility] Pcp:PCP No Subjective: * Chief Complaints: * ???1. Phone : intake. * Medical History:? Objective: * Vitals:? Assessment: Plan: * Treatment: * Images: Billing Information: * Visit Code:? * Procedure Codes:? * Electronic signature of Nurs [facility] on 08/13/2024 at 09:18 AM EDT Sign off status: Pending * Provider:?Provider [facility] Date:?06/14/2023 Generated for Radha rojas/Pamela/Kamini on:?08/13/2024 09:18 AM EDT
--- OUTSIDE RECORDS SUMMARY | 2024-08-13 09:18 | XMS_ITS | Patient Health Record ---
Author Organization [facility] Address [address], [place] [id number] Care Team Providers Care Data Control Assistant Name Role Phone No, PCP Primary Care Provider Unavailabl e [facility], [facility] Unavailable [phone] Reason For Referral No Information Plan Of Treatment No Information Insurance Providers Payer Name Payer Address Payer Phone Subscriber Number Group Number Insured Name Patient Relationship to Insured Coverage Start Date Coverage End Date [facility] [address] [place] [phone] [id number] Luna Claros Self - patient is the insured 4 5
[2024-08-13] MEDS: iohexoL 350 MG/ML 100 ML INFUS..BTL IV (10:24)
[2024-08-13 15:20] LABS: Creatinine POC 0.8 mg/dL (0.5-1.4); GFR POC > 60
== END 2024-08-13 09:05 | disposition home or self-care (01) ==
LOC: HO.CT 09:04
PROVIDERS: PCP Family Medicine; Visit Provider Surgery Vascular Surgery
DX: I73.9 Peripheral vascular disease, unspecified (principal)
CPT/HCPCS: 75635; 82565; Q9967

== ENCOUNTER → 2024-08-13 09:06 | Outpatient (BNV) | payer MEDICARE, SELFPAY | PROVIDERS: PCP Family Medicine; Visit Provider Radiology Vascular & Interventional Radiology | DX: I71.43 Infrarenal abdominal aortic aneurysm, without rupture (principal); I71.23 Aneurysm of the descending thoracic aorta, without rupture; R91.8 Other nonspecific abnormal finding of lung field | CPT/HCPCS: 75635 ==

== ENCOUNTER 2024-08-26 11:02 | Outpatient (REF) | payer MEDICARE, SELFPAY ==
--- OUTSIDE RECORDS SUMMARY | 2024-08-26 11:58 | XMS_ITS | Patient Health Record ---
Author Organization [facility] Address [address], [place] [id number] Care Team Providers Care Sand Filler Name Role Phone No, PCP Primary Care Provider Unavailabl e [facility], [facility] Unavailable [phone] Reason For Referral No Information Plan Of Treatment No Information Insurance Providers Payer Name Payer Address Payer Phone Subscriber Number Group Number Insured Name Patient Relationship to Insured Coverage Start Date Coverage End Date [facility] [address] [place] [phone] [id number] Luna Claros Self - patient is the insured 4 5
[2024-08-26 14:42] LABS: Anion Gap 13 (12-20); Blood Urea Nitrogen 29 mg/dL (9-16); Calcium 9.8 mg/dL (8.4-10.2); Carbon Dioxide 26 mmol/L (22-29); Chloride 108 mmol/L (96-108); Cholesterol 150 mg/dL (<200); Estimated Glomerular Filt Rate 49; Glucose Random 105 mg/dL (60-115); HDL Cholesterol 39 mg/dL (>40); LDL Cholesterol Calculated 71 mg/dL (<100); Potassium 4.7 mmol/L (3.3-5.1); Sodium 142 mmol/L (135-145); Triglycerides 203 mg/dL (<150)
[2024-08-26 14:58] LABS: Free T4 (Free Thyroxine) 0.78 ng/dL (0.71-1.85)
[2024-08-27 04:08] LABS: Triiodothyronine T3 Total 78 ng/dL (76-181)
== END 2024-08-26 11:03 | disposition home or self-care (01) ==
LOC: HO.WFDLDS 11:02
PROVIDERS: Nurse Practitioner Family; Referring Provider Surgery Vascular Surgery; Visit Provider Family Medicine
DX: Z00.00 Encounter for general adult medical examination without abnormal findings (principal); E78.5 Hyperlipidemia, unspecified; E03.9 Hypothyroidism, unspecified; R79.89 Other specified abnormal findings of blood chemistry
CPT/HCPCS: 36415; 80048; 80061; 84439; 84443; 84480

== ENCOUNTER 2024-09-01 10:57 | Outpatient (AMB) | payer MEDICARE, SELFPAY ==
--- NOTE | 2024-09-01 11:28 | MHC.PC.OV ---
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: No Allergies albuterol Allergy (Mild, Verified 09/01/24 11:29) headache, coded on operating table diphtheria,tetanus,poliomyelitis va Allergy (Mild, Verified 09/01/24 11:29) Swelling solumedrol Allergy (Mild, Uncoded 01/29/24 10:12) Anaphylaxis Medication List - Last Reconciled 09/01/24 by Devang Leep MD aspirin 81 mg PO DAILY 90 days clopidogrel 75 mg PO DAILY ezetimibe 10 mg PO DAILY iczxzqcbbob-yotwlzgwk-ewyyvwqz 100-62.5-25 mcg (Trelegy Ellipta) 1 inh inhalation DAILY jrfgydncial-brdcxbnjx-dwfdwwlo 200-62.5-25 mcg (Trelegy Ellipta) 1 inh inhalation DAILY meloxicam 15 mg PO DAILY PRN 30 days metoprolol succinate ER 25 mg PO DAILY 90 days nitroglycerin 0.4 mg sublingual Q5M PRN 30 days peg 3350-electrolytes 236-22.74-6.74 -5.86 gram (Golytely) 240 mL PO Q10M rosuvastatin 40 mg PO DAILY 90 days sertraline 200 mg (2 x 100 mg) PO DAILY 90 days tirzepatide (weight loss) (Zepbound) 2.5 mg (0.5 mL) subcut QWEEK 28 days Tobacco use date assessed: 07/30/23 Dental Screening Dental Screen Date: 07/30/23 HPI f/u elevated TSH HPI Details 68 y/o female presents to f/u elevated TSH, weight. Labs drawn 08/26/24. Reviewed labs with pt. Triglycerides 203. TC 150. LDL 71. HDL low at 39. TSH improved from 5.03 to 3.70. Thyroid levels within normal range. Weight improved from 159lbs to 152 lbs, BMI 28.8. Stenosis of artery of both LE, follows up with Dr. Chan. Has been having difficulty walking. HPI Comments History of Present Illness Details Documentation assistance for Devang Lepe MD, was provided by Zak Hayes,? Seo Team Lead on 09/01/2024 at 11:38 AM EST. I, Dr. Lepe, have read, observed, and verified documentation. ?? PFS Medical History Mass of anus Rectal cancer Palpitations Anxiety 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 Lung cancer Aneurysm, cerebral Surgical History Hx of colonoscopy History of heart artery stent History of hysterectomy History of partial mastectomy of both breasts History of neck surgery Family History Mother High cholesterol Lung cancer Cardiovascular disease Paternal Grandmother Breast cancer Sister Non-Hodgkin lymphoma Maternal Grandfather Colon cancer Social History Household Members: Family Household Members Other:: sister, sister's boyfriend Both parents involved: No Caregiver staying overnight: No Housing: House Are you a primary adult daycare coordinator to a significant other at home: No Do you presently have visiting nurse or other home services: No 75 years or older and lives alone: No Alcohol intake: current Alcohol intake frequency: a few times a month Alcohol type: beer and hard liquor Comment: on occasion Patient Tobacco Use Status: Former Tobacco user e-Cigarette/Vaping Use: Never Used Current occupational status: disabled Current occupational exposures/hazards: No Cognitive needs: No Hearing needs: Yes (Patient has hearing aids) Vision needs: Yes (Patient wears glasses) Questionnaire Thrive Questionnaire Date Thrive assessed: 07/03/24 I am a: Patient What is your living situation today?: I have a steady place to live Within the past 12 months, did the food you bought not last and you didn't have the money to get more?: Never true Within the past 12 months, did you worry whether your food would run out before you got money to buy more?: Never true Do you have trouble paying for medicines?: No Do you have trouble getting transportation to medical appointments?: Yes Do you have trouble paying your heating and electricity bill?: Yes Do you have trouble taking care of your child, family member or friend?: No Do you have trouble with day-to-day activities such as bathing, preparing meals, shopping, managing finances, etc.?: No Are you currently unemployed and looking for a job?: No Are you interested in more education?: No Currently or been in a relationship where the following occur: No concerns reported THRIVE Score: 2 LEIGHANN-7 AMB Questionnaire LEIGHANN-7 Date LEIGHANN - 7 assessed: 07/06/24 Source: Developed by Drs. Marlo Reed, Roxana Lopez, Justin Bruner and colleagues, with an educational north from [employer]. Review of Systems Const Denies chills, Denies fatigue, Denies fever(s), Denies headache(s) and Denies weakness ENT Denies dizziness and Denies headache(s) Card Denies dyspnea Resp Denies cough, Denies dyspnea, Denies wheezing and Denies other (shortness of breath) Musc Denies numbness and Denies tingling Neuro Denies dizziness, Denies headache(s), Denies numbness, Denies tingling and Denies weakness Psych Denies anxiety and Denies depression Endo Denies fatigue Aller/Immun Denies wheezing Physical exam (Primary Care) Vital Signs: Last Vital Signs Temp 98.2 F 09/01/24 11:30 Pulse 63 09/01/24 11:30 Resp 14 09/01/24 11:30 BP 120/60 09/01/24 11:30 Pulse Ox 95 09/01/24 11:30 Oxygen Delivery Method Room Air 09/01/24 11:30 BMI result Body Mass Index 28.8 Tobacco/Smoking Status: Tobacco use Status Tobacco use date assessed 07/30/23 09/01/24 11:33 Patient Tobacco Use Status Former Tobacco user 09/01/24 11:33 e-Cigarette/Vaping Use Never Used 09/01/24 11:33 Thrive Assessment: Date of Thrive Assessment Date Thrive assessed 07/03/24 09/01/24 11:33 Currently or been in a relationship where the following occur: No concerns reported Const General: well developed; No acute distress Nutritional Appearance: overweight Orientation/consciousness: patient oriented x3 HENMT Head: Yes normocephalic and Yes atraumatic Eyes General: appearance normal, both eyes and all related structures Pupils: Equal, round and reactive pupils present EOM: EOMs intact bilaterally Resp Effort & Inspection: normal respiratory effort Neuro General: patient oriented x3 and No gait normal Cranial nerves: Yes Equal, round and reactive pupils present Psych Affect: normal affect Coding Level of Care Code Est Pt Level 4 (09980) Diagnoses Elevated TSH R79.89 Hyperlipidemia E78.5 Obesity E66.9 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 I70.203 Assessment & Plan Assessment & Plan (1) Elevated TSH: Code(s): R79.89 - Other specified abnormal findings of blood chemistry Category: Medical Plan: Thyroid?hormone?levels?are?all?back?within?normal?range We?can?continue?to?monitor?periodically (2) Hyperlipidemia: Code(s): E78.5 - Hyperlipidemia, unspecified Category: Medical Plan: HDL?is?slightly?below?normal?range Her?LDL?is?near?goal?of?less?than?70; patient?has?peripheral?arterial?disease Continue?rosuvastatin Encouraged?exercise. She?is?having?difficulty?with?walking?due?to?claudication. Encouraged?exercise?of?upper?extremities?and?we?will?follow-up?at?a?subsequent?visit (3) Obesity: Code(s): E66.9 - Obesity, unspecified Category: Medical Plan: Patient?would?like?to?try?a?GLP?1?medication?for?weight?loss We?discussed?that?this?may?not?be?covered?but?I?will?try?sending?Zepbound She?will?discuss?medications?with?her?insurance?to?see?if?there?are?a?will?cover. (4) 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: Comment: Stents placed; [facility] Code(s): I70.203 - Unspecified atherosclerosis of [place] arteries of extremities, bilateral legs Category: Medical Plan: Followed?by??and?she?has?a?scheduled?CTA?abdomen?pelvis Follow-up?with?vascular?as?recommended Medications: New tirzepatide (weight loss) (Zepbound) for 4 weeks 2.5 mg (0.5 mL) subcut QWEEK 28 days 2 mL 3RF
[2024-09-01 11:30] VITALS: BP 120/60; PULSE 63; RESP 14; TEMP 36.8; O2SAT 95; BMI 28.8
--- OUTSIDE RECORDS SUMMARY | 2024-09-01 13:01 | XMS_ITS | Patient Health Record ---
Author Organization [facility] Address [address], [place] [id number] Care Team Providers Care Senior Quantity Surveyor Name Role Phone No, PCP Primary Care Provider Unavailabl e [facility], [facility] Unavailable [phone] Reason For Referral No Information Plan Of Treatment No Information Insurance Providers Payer Name Payer Address Payer Phone Subscriber Number Group Number Insured Name Patient Relationship to Insured Coverage Start Date Coverage End Date [facility] [address] [place] [id number] Luna Claros Self - patient is the insured 4 5
== END 2024-09-01 13:01 | disposition home or self-care (01) ==
LOC: HO.HMCFM 10:58
PROVIDERS: PCP Family Medicine; Visit Provider Family Medicine
DX: E78.5 Hyperlipidemia, unspecified (principal); E66.9 Obesity, unspecified; Z68.28 Body mass index [BMI] 28.0-28.9, adult; I70.203 Unspecified atherosclerosis of native arteries of extremities, bilateral legs; R79.89 Other specified abnormal findings of blood chemistry

== ENCOUNTER → 2024-09-01 10:57 | Outpatient (BNVA) | payer MEDICARE, SELFPAY | PROVIDERS: PCP Family Medicine; Visit Provider Family Medicine | DX: I73.9 Peripheral vascular disease, unspecified (principal); I71.43 Infrarenal abdominal aortic aneurysm, without rupture; R79.89 Other specified abnormal findings of blood chemistry; E78.5 Hyperlipidemia, unspecified; E66.9 Obesity, unspecified; Z68.28 Body mass index [BMI] 28.0-28.9, adult; Z71.3 Dietary counseling and surveillance | CPT/HCPCS: 99212 ==

== ENCOUNTER 2024-09-01 12:22 | Outpatient (AMB) | payer MEDICARE, SELFPAY ==
[2024-09-01 13:05] VITALS: BMI 28.5
--- NOTE | 2024-09-01 13:05 | MHC.OFFVIS ---
Vital Signs 09/01/24 13:05 Height 5 ft 1 in Weight 151 lb BMI 28.5 Intake Visit Reasons: follow up CTA abd/pelvis 08/14/24 Intake Note: Follow up AAA & hx of iliac stenting in [place] s/p CTA abd/pelvis w/ runoff 08/13/24. Pt states no changes in loss of balance and LE heaviness and achiness. 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 She has significant history of aortic aneurysm and underwent bilateral iliac stent placement in 2020 in [place]. Currently, symptoms are described as similar on both sides, with some predominance of right-sided issues. Abdominal aortic aneurysm evaluation currently does not require intervention, and patient persistent abdominal pain has been differentiated from vascular origin. Her regimen includes Plavix and aspirin, with no history of diabetes. 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 Lung cancer Aneurysm, cerebral Surgical History Hx of colonoscopy History of heart artery stent History of hysterectomy History of partial mastectomy of both breasts History of neck surgery Family History Mother High cholesterol Lung cancer Cardiovascular disease Paternal Grandmother Breast cancer Sister Non-Hodgkin lymphoma Maternal Grandfather Colon cancer Social History Household Members: Family Household Members Other:: sister, sister's boyfriend Housing: House Are you a primary day care home provider to a significant other at home: No Do you presently have visiting nurse or other home services: No Alcohol intake: current Alcohol intake frequency: a few times a month Alcohol type: beer and hard liquor Comment: on occasion Patient Tobacco Use Status: Former Tobacco user e-Cigarette/Vaping Use: Never Used Current occupational status: disabled Current occupational exposures/hazards: No Cognitive needs: No Hearing needs: Yes (Patient has hearing aids) Vision needs: Yes (Patient wears glasses) Review of Systems Const All systems reviewed & are unremarkable except as noted in HPI and below Reports no additional complaints ENT Reports Normal hearing present Card Denies chest pain, Denies chest pain at rest, Denies chest pain with activity and Denies pedal edema Resp Denies cough GI Denies abdominal pain Musc Denies abnormal gait, Denies muscle cramps and Denies radiating pain into limb Skin/Breast Denies skin ulcer and Denies wounds Neuro Reports Normal hearing present and Denies abnormal gait Psych Reports no additional complaints Physical Exam Vital Signs: BMI result Body Mass Index 28.5 Const General: cooperative, healthy appearing and comfortable Orientation/consciousness: oriented to person, oriented to place and oriented to time HEENT Head: Yes normal to inspection Neck Neck: Yes normal visual inspection Carotids: no bruits Chest Chest palpation & inspection: normal inspection of the chest Resp Effort & Inspection: normal respiratory effort and able to speak in complete sentences Auscultation: clear to auscultation bilaterally, no crackles, no rales, no rhonchi and no wheezes Cardio Other: Bilateral DP signals Rate: regular rate Rhythm: regular rhythm Heart sounds: S1 normal heart sound present and S2 normal heart sound present Bruits: no carotid bruits Peripheral pulses: Peripheral pulses 2+ throughout GI Inspection: Yes normal to inspection Skin Wounds: no wounds Hair: normal Neuro General: oriented to person, oriented to place and oriented to time Cranial nerves: Yes CN's II-XII intact bilaterally and Yes Normal hearing present Cognition (Neuro): normal cognition Motor exam (neuro): 5/5 motor strength present throughout Extrem Other: venous exam: No significant superficial varicosities or spider telangiectasias, minimal edema General: No clubbing, No cyanosis and No edema Psych Appearance: grossly normal Mental Status: mental status grossly normal Speech and movement: Normal speech and movement present Results Reviewed Results Reviewed: CT angiogram was reviewed dated 08/13/2024 demonstrates AAA of 3.4 cm along with bilateral inflow disease. Assessment & Plan Assessment & Plan (1) PAD (peripheral artery disease): Comment: 2020 - iliac stenting in [place] Code(s): I73.9 - Peripheral vascular disease, unspecified Category: Medical Plan: Patient notes leg pain when walking distances. I have discussed the pathophysiology of peripheral vascular disease with the patient. I have also discussed risk factor modification. I have reviewed the patient's arterial testing which reveals bilateral iliac artery disease on CT angiogram. the patient would benefit from a right leg endovascular peripheral angiogram with possible angioplasty, stent, and/or atherectomy. This has been discussed in detail with the patient along with risks, benefits, and complications. This includes but is not limited to bleeding, infection, heart attack, need for emergent surgical repair, limb ischemia, blood vessel damage, bleeding, puncture, kidney injury, bruising, allergic reaction, and skin reaction. The patient demonstrates a clear understanding. We will schedule for the next appropriate time. Thank you for allowing us to assist in this patient's care. (2) AAA (abdominal aortic aneurysm) without rupture: Code(s): I71.40 - Abdominal aortic aneurysm, without rupture, unspecified Category: Medical Qualifiers: Abdominal aorta location: infrarenal aorta Qualified Code(s): I71.43 - Infrarenal abdominal aortic aneurysm, without rupture Plan: Aneurysm stable at 3.4 cm based on CAT scan dated 08/13/2024. Will need a surveillance follow-up in approximately 3 years' time. Coding Level of Care Code Est Pt Level 4 (25997) Complex EM visit Add On G2211 Diagnoses PAD (peripheral artery disease) I73.9 Infrarenal abdominal aortic aneurysm (AAA) without rupture I71.43 Abdominal aorta location: infrarenal aorta
== END 2024-09-01 14:08 | disposition home or self-care (01) ==
LOC: HO.HVS 12:23
PROVIDERS: PCP Family Medicine; Visit Provider Surgery Vascular Surgery
DX: I73.9 Peripheral vascular disease, unspecified (principal); I71.43 Infrarenal abdominal aortic aneurysm, without rupture
CPT/HCPCS: 99214; G2211

== ENCOUNTER 2024-09-23 05:57 | Day surgery (SDC) | payer MEDICARE, SELFPAY ==
--- OUTSIDE RECORDS SUMMARY | 2024-09-08 12:39 | XMS_ITS | Patient Health Record ---
Author Organization [facility] Address [address], [place] [id number] Care Team Providers Care Lunchroom Food Service Supervisor Name Role Phone [employer] - DO NOT USE, no PCP Primary Care Prov ider Unavailable [facility], [facility] Unavailable [phone] Reason For Referral No Information Plan Of Treatment No Information Insurance Providers Payer Name Payer Address Payer Phone Subscriber Number Group Number Insured Name Patient Relationship to Insured Coverage Start Date Coverage End Date [facility] [address] [place] [phone] [id number] Luna Claros Self - patient is the insured 4 5
[2024-09-23] VITALS (18 sets, daily range): BP systolic 106–152; BP diastolic 45–83; PULSE 5–63; RESP 12–18; TEMP 36.1–36.8; O2SAT 92–99; BMI 30.6
[2024-09-23 06:45] LABS: MANUAL DIFF FLAG NO
[2024-09-23 06:47] LABS: Hematocrit 40.0 % (37.0-47.0); Hemoglobin 13.3 g/dl (12.0-16.0); Imm Gran Abs Auto 0.03 X10*3/uL (0.00-0.03); Imm Gran Pct Auto 0.5 % (0.0-0.4); Lymphocytes Absolute Auto 1.7 X10*3/uL (1.2-4.9); Mean Corpuscular HGB Conc 33.3 g/dl (31.0-35.0); Mean Corpuscular Hemoglobin 29.2 pg (27.0-33.0); Mean Corpuscular Volume 87.9 fL (80.0-98.0); NRBC Abs Auto 0.000 X10*3/uL (0.0-0.012); NRBC Pct Auto 0.0 /100WBC (0.0-0.2); Platelet Count 169 X10*3/uL (160-400); Red Blood Count 4.55 X10*6/uL (4.20-5.50); White Blood Count 6.6 X10*3/uL (4.8-10.8)
[2024-09-23 07:01] LABS: Blood Urea Nitrogen 38 mg/dL (9-16); Creatinine Clr Calc Pharmacy 36.3; Estimated Glomerular Filt Rate 39
--- NOTE | 2024-09-23 08:28 | P.OP_ITS ---
Operative Note Operative Note Date of Service: 09/23/24 Narrative: Angiogram report from [facility] Preoperative diagnosis: Atherosclerosis of bilateral lower extremity with activity limiting claudication Postoperative diagnosis: Same Procedure: 1. Ultrasound-guided left common femoral access 2. Aortogram with bilateral lower extremity runoff Surgeon:Rj Chan M.D., FACS, RPVI Fabric Awning Repairer:None Anesthesia: Local with moderate conscious sedation. Total intraservice moderate sedation time was 24 minutes. I monitored the patient's level of consciousness and physiologic status continuously throughout the procedure. Specimens:none Drains:none Estimated blood loss: Less than 10 ml Radiation Dose: 256.1 mGy Implant: None Indications: 68-year-old female presents with prior history of iliac stenting which was done down in [place] with activity limiting claudication. She had undergone CT angiogram and now presents for endovascular intervention. The patient has signed the informed consent after reviewing risks, complications, benefits, and alternatives previously discussed with the patient. The patient was given the opportunity to ask any additional questions or voice any concerns. All questions were answered to the patient's satisfaction. Procedure in detail: Patient was brought to the angiography suite prior to which a time-out was called for patient identification and site verification. Bilateral groins were prepped and draped in the standard surgical fashion. Under ultrasound guidance left common femoral was punctured with micro puncture needle and wire. Subsequently a precision 5 Gib[place] sheath was then placed. Bentson wire was advanced to the level of the aorta. 5 Gib[place]tarian Flush catheter was brought up and parked at the level of the renal arteries. Aortogram was then undertaken. Catheter was brought down to the level of the iliac bifurcation. Iliacs and runoff was performed through the flush catheter that was parked at the bifurcation and a power injection was performed to visualize bilateral runoff vessels. Subsequently the catheter was then brought in up and over to the right side SFA. A more focal runoff was performed through the catheter down the right lower extremity. No intervention on was indicated in the lower extremity. We then brought our catheter back up to the distal aorta. We did a magnified in orthogonal views to better classify the distal aorta. At this time no intervention was indicated. Catheter wire sheath was removed. A CELT 5 Gibraltarian closure device was deployed. Adequate hemostasis was achieved. Patient tolerated the procedure well. Returned to recovery with stable vitals. Interpretation of films: 1. Ultrasound demonstrates appropriate femoral access site. Vessel was patent with minimal stenosis. Needle entry was visualized. Image of ultrasound was saved. 2. Aortogram demonstrates appropriate caliber aorta. There was significant disease at the distal aorta. There is a tight calcified ring just above the aortic bifurcation. Bilateral iliacs in the common iliacs were calcified and small in caliber. 3. Iliac images demonstrate no significant disease but the bifurcation was extremely calcified small in caliber the right iliac stent was patent 4. Right Leg Common femoral artery: No significant disease Profundus Femoris: No significant disease Superficial femoral artery: No significant disease Popliteal artery (p1,p2,p3): No significant disease Anterior tibial artery: No significant disease Peroneal artery: Patent but diminutive Posterior tibial artery: No significant disease dominant runoff Dorsalis pedis/plantar arch: Unable to visualize 5. Left Leg Common femoral artery: No significant disease Profundus Femoris: No significant disease Superficial femoral artery: No significant disease Popliteal artery (p1,p2,p3): No significant disease Anterior tibial artery: No significant disease Peroneal artery: Patent Posterior tibial artery: No significant disease Dorsalis pedis/plantar arch: Unable to visualize Conclusion: 1. Successful diagnostic angiogram. May need aortic stenting. 2. Anticoagulation status: No change This note is constructed using voice recognition software. While every effort has been made to ensure accuracy, animal science professor errors may have been included. Thank you for allowing me to participate in the care of your patient. Yours sincerely, Rj Chan MD, FACS, R.P.V.I.
== END 2024-09-23 10:22 | disposition home or self-care (01) ==
PROVIDERS: PCP Family Medicine; Visit Provider Surgery Vascular Surgery
DX: I70.213 Atherosclerosis of native arteries of extremities with intermittent claudication, bilateral legs (principal); Z95.820 Peripheral vascular angioplasty status with implants and grafts; I71.43 Infrarenal abdominal aortic aneurysm, without rupture; R10.9 Unspecified abdominal pain; R26.2 Difficulty in walking, not elsewhere classified; R00.2 Palpitations; Z95.5 Presence of coronary angioplasty implant and graft; Z90.13 Acquired absence of bilateral breasts and nipples; C34.90 Malignant neoplasm of unspecified part of unspecified bronchus or lung; C20 Malignant neoplasm of rectum; Z79.02 Long term (current) use of antithrombotics/antiplatelets; Z79.82 Long term (current) use of aspirin; Z88.8 Allergy status to other drugs, medicaments and biological substances; Z98.890 Other specified postprocedural states; Z87.891 Personal history of nicotine dependence
CPT/HCPCS: 36247; 36415; 75630; 76937; 82565; 84520; 85025; 99152; C1769; C1887; C1894; J1644; J2250; J2270; J3010; Q9967

== ENCOUNTER → 2024-09-23 05:57 | Outpatient (BNV) | payer MEDICARE, SELFPAY | PROVIDERS: PCP Family Medicine; Visit Provider Surgery Vascular Surgery | DX: I70.213 Atherosclerosis of native arteries of extremities with intermittent claudication, bilateral legs (principal) | CPT/HCPCS: 36247; 75630; 76937; 99152 ==

== ENCOUNTER 2024-10-08 10:44 | Outpatient (AMB) | payer MEDICARE, SELFPAY ==
--- OUTSIDE RECORDS SUMMARY | 2017-12-25 09:48 | XMS_ITS | Continuity of Care Document ---
Author Organization [facility] Address [address] [place] [address] Phone Care Team Providers Care Tractor Mechanic Name Role Phone Cricket Zimmerman Unavailable Unavailable [...] Abnormal Flag Status Commen ts Panel Description: [id number] Final Image Zeiss Result 1 Advance Directives Directive Yes / No Effective Date File Name No Information Encounters Encounter Description Practice Location Reason(s) For Visit Diagnoses Date Provider Providers Copied on Encounter [facility], [address] [place], [place], [id number] , [place] tel:[phone] [facility] decreased vision (chief complaint) Age-related nuclear cataract, bilateralOcular hypertension, bilateralOpen angle with borderline findings, low risk, bilateralPresbyopia Oct-0 8 Elsie Harley. [address] [place] [address], [id number], [place]. tel:[phone] Referring Provider: Cricket Zimmerman, [address] [place], [address] . tel:[phone] Family History Family Member Type Diagnosis Age [...] any drops.Pt states when she was in [place] over 5 year ago she was treated for glaucoma w/ drop tx, since she has been in [place] and seen 3 different eye doctors they [...] any drops.Pt states when she was in [place] over 5 year ago she was treated for glaucoma w/ drop tx, since she has been in [place] and seen 3 different eye doctors they [...]
--- NOTE | 2024-10-08 10:47 | MHC.OFFVIS ---
Vital Signs 10/08/24 10:48 Height 5 ft 1 in Weight 161 lb BMI 30.4 Intake Visit Reasons: 2 week follow up s/p R leg angio 09/23/24 Allergies albuterol Allergy (Mild, Verified 09/01/24 13:07) headache, coded on operating table diphtheria,tetanus,poliomyelitis va Allergy (Mild, Verified 09/01/24 13:07) Swelling solumedrol Allergy (Mild, Uncoded 09/01/24 13:07) Anaphylaxis HPI HPI 2 week follow up s/p R leg angio 09/23/24: Details: Extremely complex 68-year-old female presents for follow-up evaluation regarding peripheral vascular disease. Upon discussion with her she is able to walk 100 yd at most. She had undergone diagnostic angiogram by us on 09/23/2024. She did well postprocedure and has had no interval changes since her last office visit. Upon discussion with her she does have a history of COPD and a partial lung resection which does limit her activity quite a bit. In addition she has equilibrium issues which she has been evaluated by ENT in the past. She now presents to us for vascular follow-up. 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 Lung cancer Aneurysm, cerebral Surgical History Hx of colonoscopy History of heart artery stent History of hysterectomy History of partial mastectomy of both breasts History of neck surgery Family History Mother High cholesterol Lung cancer Cardiovascular disease Paternal Grandmother Breast cancer Sister Non-Hodgkin lymphoma Maternal Grandfather Colon cancer Social History Household Members: Family Household Members Other:: sister, sister's boyfriend Both parents involved: No Caregiver staying overnight: No Housing: House Are you a primary rn medicare to a significant other at home: No Do you presently have visiting nurse or other home services: No 75 years or older and lives alone: No Alcohol intake: current Alcohol intake frequency: a few times a month Alcohol type: beer and hard liquor Comment: on occasion Patient Tobacco Use Status: Former Tobacco user e-Cigarette/Vaping Use: Never Used Current occupational status: disabled Current occupational exposures/hazards: No Cognitive needs: No Hearing needs: Yes (Patient has hearing aids) Vision needs: Yes (Patient wears glasses) Review of Systems Const All systems reviewed & are unremarkable except as noted in HPI and below Reports no additional complaints ENT Reports Normal hearing present Card Reports claudication Resp Denies cough GI Denies abdominal pain Musc Denies abnormal gait, Reports myalgias and Reports arthralgias Skin/Breast Denies skin ulcer and Denies wounds Neuro Reports Normal hearing present and Denies abnormal gait Psych Reports no additional complaints Physical Exam Vital Signs: BMI result Body Mass Index 30.4 Const General: cooperative, healthy appearing and comfortable Orientation/consciousness: oriented to person, oriented to place and oriented to time HEENT Head: Yes normal to inspection Neck Neck: Yes normal visual inspection Carotids: no bruits Chest Chest palpation & inspection: normal inspection of the chest Resp Effort & Inspection: normal respiratory effort and able to speak in complete sentences Auscultation: clear to auscultation bilaterally, no crackles, no rales, no rhonchi and no wheezes Cardio Other: Bilateral DP signals Rate: regular rate Rhythm: regular rhythm Heart sounds: S1 normal heart sound present and S2 normal heart sound present Bruits: no carotid bruits Peripheral pulses: Peripheral pulses 2+ throughout GI Inspection: Yes normal to inspection Skin Wounds: no wounds Hair: normal Neuro General: oriented to person, oriented to place and oriented to time Cranial nerves: Yes CN's II-XII intact bilaterally and Yes Normal hearing present Cognition (Neuro): normal cognition Motor exam (neuro): 5/5 motor strength present throughout Extrem Other: venous exam: No significant superficial varicosities or spider telangiectasias, minimal edema General: No clubbing, No cyanosis and No edema Psych Appearance: grossly normal Mental Status: mental status grossly normal Speech and movement: Normal speech and movement present Results Reviewed Results Reviewed: Angiogram from 09/23/2024 was reviewed and demonstrates tight calcified ring in the aorta patent right iliac stent. There was no left iliac stent. Written report and images were reviewed Assessment & Plan Assessment & Plan (1) PAD (peripheral artery disease): Comment: 2020 - iliac stenting in [place] right only Code(s): I73.9 - Peripheral vascular disease, unspecified Category: Medical Plan: At the current time patient has stable peripheral vascular disease. She is a claudication but I do believe that her shortness of breath is more limiting than anything else. In addition she is awaiting GI workup which seems to be an issue for her as well. At the current time we will manage her as conservatively as possible. I have taken the liberty of starting cilostazol. In addition she will follow-up with surveillance in a proximally 3 months with us. Thank you for allowing us to assist in her care. (2) AAA (abdominal aortic aneurysm) without rupture: Code(s): I71.40 - Abdominal aortic aneurysm, without rupture, unspecified Category: Medical Qualifiers: Abdominal aorta location: infrarenal aorta Qualified Code(s): I71.43 - Infrarenal abdominal aortic aneurysm, without rupture Plan: Currently stable at 3.4 cm. We will need to be surveilled in a proximally a 1 year's time. Orders: Orders US arterial duplex LE BI 3 Months I73.9 - Peripheral vascular disease, unspecified Medications: New cilostazol 50 mg PO BID 60 tabs 3RF Coding Level of Care Code Est Pt Level 4 (02872) Complex EM visit Add On G2211 Diagnoses PAD (peripheral artery disease) I73.9 Infrarenal abdominal aortic aneurysm (AAA) without rupture I71.43 Abdominal aorta location: infrarenal aorta
[2024-10-08 10:48] VITALS: BMI 30.4
--- OUTSIDE RECORDS SUMMARY | 2024-10-08 11:23 | XMS_ITS | Patient Health Record ---
Author Organization [facility] Address [address] [place], [place] [id number] Care Team Providers Care Home Appliance Tech Name Role Phone NO, PCP Primary Care Provider [facility], [facility] Unavailable [phone] Reason For Referral No Information Plan Of Treatment No Information Insurance Providers Payer Name Payer Address Payer Phone Subscriber Number Group Number Insured Name Patient Relationship to Insured Coverage Start Date Coverage End Date [facility] [address] [place] [phone] [id number] Luna Claros Self - patient is the insured 4 5
== END 2024-10-08 11:14 | disposition home or self-care (01) ==
LOC: HO.HVS 10:45
PROVIDERS: PCP Family Medicine; Visit Provider Surgery Vascular Surgery
DX: I73.9 Peripheral vascular disease, unspecified (principal); I71.43 Infrarenal abdominal aortic aneurysm, without rupture
CPT/HCPCS: 99214; G2211

== ENCOUNTER → 2024-10-08 10:44 | Outpatient (BNVA) | payer MEDICARE, SELFPAY | PROVIDERS: PCP Family Medicine; Visit Provider Surgery Vascular Surgery | DX: I73.9 Peripheral vascular disease, unspecified (principal); I71.43 Infrarenal abdominal aortic aneurysm, without rupture | CPT/HCPCS: 99212 ==

== ENCOUNTER 2025-01-11 13:50 | Outpatient (AMB) | payer MEDICARE, MEDICAID, SELFPAY ==
--- NOTE | 2025-01-11 14:25 | A.OFFVIS_ITS ---
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 Accompanied by: Daughter Allergies albuterol Allergy (Mild, Verified 01/11/25 14:29) headache, coded on operating table diphtheria,tetanus,poliomyelitis [place] Allergy (Mild, Verified 01/11/25 14:29) Swelling solumedrol Allergy (Mild, Uncoded 09/01/24 13:07) Anaphylaxis Medication List - Last Reconciled 01/11/25 by Gurvinder Alberts MD cilostazol 50 mg PO BID clopidogrel 75 mg PO DAILY 90 days ezetimibe 10 mg PO DAILY jqbzjcpqiat-qugennlss-ehjbbtjz 100-62.5-25 mcg (Trelegy Ellipta) 1 inh inhalation DAILY meloxicam 15 mg PO DAILY PRN 30 days metoprolol succinate ER 12.5 mg (1/2 x 25 mg) PO ONCE nitroglycerin 0.4 mg sublingual Q5M PRN 30 days rosuvastatin 40 mg PO DAILY 90 days sertraline 200 mg (2 x 100 mg) PO DAILY 90 days HPI Comments Details: Luna returns for follow-up. In the past, we have seen her for cardiac evaluation. There is a history of coronary artery disease and RCA stenting 2007. She had one further catheterization 2021 but no new findings. She also has other conditions like peripheral vascular disease, COPD and lung cancer with lobectomy. It seems that she needs GI evaluation with EGD/colonoscopy and hence requesting cardiology clearance. Patient denies any clear-cut symptoms like exertional angina. She still has symptoms related to her COPD. Otherwise, getting along okay. [facility] Medical History Mass of anus Rectal cancer Palpitations Anxiety 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 Lung cancer Aneurysm, cerebral Surgical History Hx of colonoscopy History of heart artery stent History of hysterectomy History of partial mastectomy of both breasts History of neck surgery Family History Mother High cholesterol Lung cancer Cardiovascular disease Paternal Grandmother Breast cancer Sister Non-Hodgkin lymphoma Maternal Grandfather Colon cancer Social History Household Members: Family Household Members Other:: sister, sister's boyfriend Both parents involved: No Caregiver staying overnight: No Housing: House Are you a primary home care and home health aides teacher to a significant other at home: No Do you presently have visiting nurse or other home services: No 75 years or older and lives alone: No Alcohol intake: current Alcohol intake frequency: a few times a month Alcohol type: beer and hard liquor Comment: on occasion Patient Tobacco Use Status: Former Tobacco user e-Cigarette/Vaping Use: Never Used Current occupational status: disabled Current occupational exposures/hazards: No Cognitive needs: No Hearing needs: Yes (Patient has hearing aids) Vision needs: Yes (Patient wears glasses) Review of Systems Const Denies daytime sleepiness, Denies difficulty sleeping, Denies snoring, Denies stops breathing during sleep and Denies weakness Card Denies chest pain, Denies rapid heart rate, Denies irregular heart rhythm, Denies claudication, Denies leg edema, Denies lightheadedness, Denies palpitations, Reports dyspnea, Denies dyspnea on exertion, Denies orthopnea, Denies paroxysmal nocturnal dyspnea and Denies slow heart rate Resp Denies cough, Reports dyspnea, Denies dyspnea on exertion and Denies snoring GI Reports no additional complaints, Denies hematochezia, Denies change in stool character and Denies dyspepsia Musc Denies abnormal gait, Denies muscle weakness and Denies numbness Neuro Denies abnormal gait, Denies numbness and Denies weakness Endo Denies palpitations Physical Exam Vital Signs: Last Vital Signs Pulse 100 01/11/25 14:26 BP 112/58 L 01/11/25 14:26 BMI result Body Mass Index 29.7 Const General: comfortable and no acute distress Orientation/consciousness: patient oriented x3 HEENT Other: Unremarkable Head: Yes normal to inspection Neck Neck: Yes normal visual inspection Chest Chest palpation & inspection: normal inspection of the chest Resp Auscultation: rhonchi Cardio Palpation: normal PMI Heart sounds: S1 normal heart sound present, S2 normal heart sound present, no gallops, no murmurs and no rubs GI Palpation (GI): Soft to palpation Back/Spine/Pelvis Other: unremarkable Skin General skin exam: no rashes or lesions noted Neuro General: patient oriented x3 Extrem General: Yes normal to inspection Psych Mental Status: mental status grossly normal Office Procedures EKG Details: EKG -sinus rhythm, 100/Min; no ischemic changes; [place] [address]-[id number], Complete Assessment & Plan Assessment & Plan (1) Preop cardiovascular exam: Code(s): Z01.810 - Encounter for preprocedural cardiovascular examination Category: Medical (2) Atherosclerotic cardiovascular disease: Code(s): I25.10 - Atherosclerotic heart disease of [place] coronary artery without angina pectoris Category: Medical Plan Cardiac studies reviewed. Echocardiogram 2023-LVEF 60-65%. No significant valvular findings and otherwise unremarkable. Myocardial perfusion imaging study shows likely normal perfusion. In the Holter monitor, underlying sinus rhythm with supraventricular ectopy at 15% burden. Cardiac catheterization [place] 2021-left main, LAD, circumflex- no disease; RCA with minor irregularities; patent stent in the distal RCA. Overall, stable coronary disease without any concerning symptoms or findings. She is on Plavix, beta-blockers and statins and that can be continued. With regard to supraventricular ectopy, increased possibility of atrial fibrillation in the future and we will need to be monitored. With regard to GI workup, may proceed as planned. Intermediate cardiac risk. Follow up in one year. She will call us with any interim concerns. Discussion Notes I discussed with the patient the risks associated with undergoing procedures under anesthesia, given her history of COPD, coronary artery disease, and partial lung resection. We agreed on the importance of balancing the risks and benefits. The patient was informed about the potential for her oxygen levels to drop during anesthesia and the associated cardiac risks. Patient was informed and verbally consented to the use of an ambient scribe for clinic note documentation during this visit. Coding Level of Care Code Est Pt Level 4 (76228) Complex EM visit Add On G2211 Diagnoses Preop cardiovascular exam Z01.810 Atherosclerotic cardiovascular disease I25.10 CPT Codes EKG - CPT: 49729-[id number], Complete ([id number])
[2025-01-11 14:26] VITALS: BP 112/58; PULSE 100; BMI 29.7
== END 2025-01-11 14:55 | disposition home or self-care (01) ==
PROVIDERS: PCP Family Medicine; Visit Provider Internal Medicine
DX: I25.10 Atherosclerotic heart disease of native coronary artery without angina pectoris (principal)
CPT/HCPCS: 93010; 99214; G2211

== ENCOUNTER → 2025-01-11 13:50 | Outpatient (BNVA) | payer MEDICARE, SELFPAY | PROVIDERS: PCP Family Medicine; Visit Provider Internal Medicine | DX: Z01.810 Encounter for preprocedural cardiovascular examination (principal); Z85.048 Personal history of other malignant neoplasm of rectum, rectosigmoid junction, and anus; I25.10 Atherosclerotic heart disease of native coronary artery without angina pectoris; I73.9 Peripheral vascular disease, unspecified; J44.9 Chronic obstructive pulmonary disease, unspecified; Z85.118 Personal history of other malignant neoplasm of bronchus and lung; Z95.5 Presence of coronary angioplasty implant and graft | CPT/HCPCS: 93005; 99212 ==

== ENCOUNTER 2025-01-15 09:24 | Outpatient (AMB) | payer MEDICARE, SELFPAY ==
[2025-01-15 09:32] VITALS: BP 134/68; PULSE 79; O2SAT 95; BMI 30.4
--- NOTE | 2025-01-15 09:32 | A.OFFVIS_ITS ---
Vital Signs 01/15/25 09:32 Height 5 ft 1 in Weight 161 lb BMI 30.4 BP 134/68 Blood Pressure Location Rt brachial Position Sitting Pulse 79 Pulse Source Pulse Oximeter Pulse Oximetry (%) 95 Oxygen Delivery Method Room Air Intake Visit Reasons: pulm clearance Allergies albuterol Allergy (Mild, Verified 01/15/25 09:34) headache, coded on operating table diphtheria,tetanus,poliomyelitis va Allergy (Mild, Verified 01/15/25 09:34) Swelling solumedrol Allergy (Mild, Uncoded 01/15/25 09:34) Anaphylaxis HPI HPI pulm clearance: Details: Luna is pleasant 69-year-old female, former 50 pack year smoker, quit in 2021 with underlying rectal cancer dx 2021, right lung cancer dx 1996 s/p RUL/RML lo bectomies, cerebral aneurysm s/p coil, bilateral partial mastectomy secondary to bilateral breast discharge and family history breast cancer, COPD, GERD and peripheral arterial disease status post stents. She has been lost to follow up, last seen in office 11/2023. [facility] for preoperative pulmonary assessment for upcoming colonscopy/endoscopy. Since the last visit, she denies any visits to urgent care or hospitalizations related to respiratory distress. She has been intermittently using supplemental oxygen when she feels distress otherwise does not use. She had previously reported using supplemental oxygen while in [place], 2L continuously, however did not meet criteria during 6MWT during the last visit. She was sent for overnight oximetry unclear if she was using supplemental oxygen at that time, which did not reveal significant hypoxemia. Prior chest CT 02/2024 revealed post surgical changes from RUL/RML lobectomies, emphysematous changes as well as stable pulmonary nodules. She will be enrolled in the lung screening program for continued surveillance. She has been using Trelegy 100 mcg with moderate effect, continues with dyspnea on moderate exertion as well as intermittent wheezing/productive cough with whitish sputum. Denies any symptoms suggestive of an infectious process. Previously Trelegy was increased and has trialed nebulized therap y/albuterol MDI however could not tolerate, resulting in headaches and dizziness. [facility] Medical History Mass of anus Rectal cancer Palpitations Anxiety 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 Lung cancer Aneurysm, cerebral Surgical History Hx of colonoscopy History of heart artery stent History of hysterectomy History of partial mastectomy of both breasts History of neck surgery Family History Mother High cholesterol Lung cancer Cardiovascular disease Paternal Grandmother Breast cancer Sister Non-Hodgkin lymphoma Maternal Grandfather Colon cancer Social History Household Members: Family Household Members Other:: sister, sister's boyfriend Both parents involved: No Caregiver staying overnight: No Housing: House Are you a primary director of career resources to a significant other at home: No Do you presently have visiting nurse or other home services: No 75 years or older and lives alone: No Alcohol intake: current Alcohol intake frequency: a few times a month Alcohol type: beer and hard liquor Comment: on occasion Patient Tobacco Use Status: Former Tobacco user e-Cigarette/Vaping Use: Never Used Current occupational status: disabled Current occupational exposures/hazards: No Cognitive needs: No Hearing needs: Yes (Patient has hearing aids) Vision needs: Yes (Patient wears glasses) Review of Systems Const Denies chills, Denies excessive sweating, Denies fever(s), Denies headache(s) and Denies night sweats Eyes Denies dry eyes, Denies irritation and Denies itchy eyes ENT Reports Normal hearing present, Denies headache(s), Denies nasal congestion, Denies nasal discharge, Denies post nasal drip and Denies sore throat Card Denies chest pain, Denies chest pain at rest, Denies chest pain with activity, Denies claudication, Denies leg edema, Reports dyspnea on exertion, Denies orthopnea and Denies paroxysmal nocturnal dyspnea Resp Denies chest congestion, Reports cough, Denies hemoptysis, Denies excessive phlegm production, Denies pain on inspiration, Denies pain with cough, Reports dyspnea on exertion, Denies stridor and Reports wheezing Musc Denies myalgias Neuro Reports Normal hearing present and Denies headache(s) Endo Denies excessive sweating Kostas/Lymph Denies lymphadenopathy Aller/Immun Denies itchy eyes, Denies seasonal rhinorrhea and Reports wheezing Physical Exam Vital Signs: Last Vital Signs Pulse 79 01/15/25 09:32 BP 134/68 01/15/25 09:32 Pulse Ox 95 01/15/25 09:32 Oxygen Delivery Method Room Air 01/15/25 09:32 BMI result Body Mass Index 30.4 Const General: cooperative, healthy appearing, comfortable, no acute distress, well developed and alert Orientation/consciousness: patient oriented x3 Limitations: ambulation with cane HEENT Head: Yes normal to inspection, Yes normocephalic and Yes atraumatic Ears: hearing grossly normal bilaterally and external ears normal Eyes General: appearance normal, both eyes and all related structures Eyelids: Yes eyelids normal Sclerae: sclerae normal EOM: EOMs intact bilaterally Neck Neck: Yes normal visual inspection and Yes no lymphadenopathy Lymphatic: no lymphadenopathy noted Chest Chest palpation & inspection: normal inspection of the chest Resp Effort & Inspection: normal respiratory effort, able to speak in complete sentences, no audible wheezes, no cough, no stridor, not tachypneic, no tripod positioning and no use of accessory muscles Auscultation: clear to auscultation bilaterally, crackles (coarse inspiratory crackles RLL c/w fibrosis) and diminished lung sounds on the right in the lower lung pratt Cardio Jugular venous distension: no JVD Rate: regular rate Rhythm: regular rhythm Skin Other: warm, dry General skin exam: no rashes or lesions noted Neuro General: patient oriented x3 Cranial nerves: Yes Normal hearing present Cognition (Neuro): normal cognition Gait exam (Neuro): Normal gait present Extrem General: Yes normal to inspection, Yes capillary refill normal, Yes no clubbing, cyanosis or edema and Yes no pedal edema Psych Appearance: grossly normal and well kempt Speech and movement: Normal speech and movement present and Clear speech present Affect: normal affect Attitude: cooperative Thought process: Normal thought process present Thought content: Normal thought content present Insight: Good insight present (Psych) Judgement: Good judgement present (Psych) Office Procedures 6 Minute Walk Time:: 10:15 SPO2 % at rest: 95 Pulse at rest: 76 SPO2 % during excercise: 88 Pulse during excercise: 130 SPO2 % after excercise: 91 Pulse after excercise: 118 Distance in yards walked: 75 Jose Score: 9 Performance Observations:: Patient walked on level ground with the use of a cane in her right hand. After approx 4 minutes O2 dropped to 88% .with pulse of 130. Stopped walk and O2 applied at 2L with O2 sat. returned to 91%. Patient walked with O2 and maintained saturation of 91%. During the walk patient was very dyspneic and reports she is like this anytime she walks. Patient would benefit from supplemental oxygen. [id number] - 6 Minute Walk Assessment & Plan Assessment & Plan (1) COPD (chronic obstructive pulmonary disease): Code(s): J44.9 - Chronic obstructive pulmonary disease, unspecified Category: Medical (2) Dyspnea on minimal exertion: Code(s): R06.09 - Other forms of dyspnea Category: Medical (3) History of lung cancer: Code(s): Z85.118 - Personal history of other malignant neoplasm of bronchus and lung Category: Medical (4) Personal history of tobacco use: Code(s): Z87.891 - Personal history of nicotine dependence Category: Social Hx (5) Pulmonary nodule: Code(s): R91.1 - Solitary pulmonary nodule Category: Medical (6) Loud snoring: Code(s): R06.83 - Snoring Category: Medical (7) Daytime somnolence: Code(s): R40.0 - Somnolence Category: Medical Plan Luna reports moderate control of respiratory symptoms with current regimen, although continues with dyspnea on exertion, intermittent wheezing/coughing. Again discussed changing medication regimen however she has trialed multiple medications including increased Trelegy, Albuterol MDI/neb, as well as Levalbuterol, all resulting in headache, nausea and dizziness. 6MWT performed again in office, lowest O2 88%, requiring 2L supplemental oxygen with exertion. Will send order for supplemental oxygen. She also reports symptoms suggestive of BIJU including daytime fatigue, nonrestorative sleep and loud snoring, will send for home sleep study to assess for BIJU as well as nocturnal hypoxemia. Reviewed PFT 2023 which revealed moderate obstructive ventilatory defect with no bronchodilator response. Decreased diffusion capacity suggests emphysema. Previously discussed obtaining repeat chest CT to assess stability of nodules, which is scheduled 02/2025. Will also enter referral to screening program. Per [facility] ([facility]) preoperative pulmonary risk index patient would be intermediate risk for perioperative pulmonary complications for proposed GI procedure. All questions were answered and patient is in agreement of plan. Will follow up in 3 months or sooner if needed. Orders: Orders AMB 6 minute walk Today J44.9 - Chronic obstructive pulmonary disease, unspecified RT home sleep study Today R06.83 - Snoring, R40.0 - Somnolence Referrals Lung Cancer Screening Referral Z87.891 - Personal history of nicotine dependence Coding Level of Care Code Est Pt Level 4 (93109) Complex EM visit Add On G2211 Diagnoses COPD (chronic obstructive pulmonary disease) J44.9 Dyspnea on minimal exertion R06.09 History of lung cancer Z85.118 Personal history of tobacco use Z87.891 Pulmonary nodule R91.1 Loud snoring R06.83 Daytime somnolence R40.0 CPT Codes Coding ([id number])
--- OUTSIDE RECORDS SUMMARY | 2025-01-15 10:17 | XMS_ITS | Patient Health Record ---
Author Organization [facility] Address [address] [place] [address] [place] [address] Care Team Providers Care Supervisor Felling Bucking Name Role Phone Radha Morales Primary Care Provider TIN Ruiz Unavailable [phone] Allergies Allergen (clinical drug ingredient) Drug/Non Drug Allergy documented on EMR Reaction Allergy Type Onset Date Status Information temporarily unavailable Solu-medrol (uncoded) anaphylaxis Allergy Active Information temporarily unavailable Tetanus Immune Globulin anaphylaxis Drug Allergy Active [...] Problem Status W/U Status Risk Notes Problem Information temporarily unavailable Cervicalgia (M54.2) Active confirmed Problem Information temporarily unavailable alf current use of opiate analgesic (Z79.891) Active confirmed Problem Information temporarily unavailable Spinal stenosis (M48.00) Active confirmed Problem Information temporarily unavailable Bilateral occipital neuralgia (M54.81) Active confirmed Problem Information temporarily unavailable Cervical vertebral fusion syndrome (Q76.1) Active confirmed Plan Of Treatment Pending Test Test Name Order Date CT SCAN : C-Spine W W/O Contrast 018 Insurance Providers Payer Name Payer Address Payer Phone Subscriber Number Group Number Insured Name Patient Relationship to Insured Coverage Start Date Coverage End Date [address] [place] [address] [id number] Luna Elliott Self - patient is the insured Medical (General) History Medical History History ICD Code heart attack osteoporosis lung cancer anxiety depression Surgical History Surgery Date(Month/Year) ACDF 2005 Stent hysterectomy aneurysm cervical gallbladder removed 2017 Bronchoscopy and biospy 2019 Hospitalization History Reason Date(Month/Year) gallbladder removed June 2017
--- OUTSIDE RECORDS SUMMARY | 2025-01-15 10:17 | XMS_ITS | Patient Health Record ---
Author Organization [facility] Address [address] [facility] [address] [place] [address] Care Team Providers Care Acoustic Engineer Name Role Phone RUBI WEEKS MD Primary Care Provider Unavaila MANNY Martin Unavailable [phone] Allergies Allergen (clinical drug ingredient) Drug/Non Drug Allergy documented on EMR Reaction Allergy Type Onset Date Status Information temporarily unavailable Solu-Medrol Unknown Drug Allergy Active Information temporarily unavailable Tetanus-Diphtheria Toxoids Td Unknown Drug Allergy Active Information temporarily unavailable Albuterol Unknown Drug Allergy Active Reason For [...] ER 500 MG TAKE 1 TABLET BY [facility] TWICE A DAY FOR 30 [...] Status Risk Notes Problem Information temporarily unavailable Anxiety (F41.9) Active confirmed Problem Information temporarily unavailable PAD (peripheral artery disease) (I73.9) Active confirmed Problem Information temporarily unavailable Hyperlipidemia, unspecified hyperlipidemia type (E78.5) Active confirmed Problem Information temporarily unavailable Claudication (I73.9) Active confirmed Problem Information temporarily unavailable PAC (premature atrial contraction) (I49.1) Active confirmed Problem Information temporarily unavailable Smoker (F17.200) Active confirmed Problem Information temporarily unavailable Abnormal chest CT (R93.89) Active confirmed Problem Information temporarily unavailable Angina pectoris (I20.9) Active confirmed Problem Information temporarily unavailable Thoracic aortic aneurysm without rupture (I71.2) Active confirmed Problem Information temporarily unavailable Gastroesophageal reflux disease, unspecified whether esophagitis present (K21.9) Active confirmed Problem Information temporarily unavailable CAD in [place] artery (I25.10) Active confirmed Plan Of Treatment Pending Test Test Name Order Date ECG RECORDING 10/27/2021 Insurance Providers Payer Name Payer Address Payer Phone Subscriber Number Group Number Insured Name Patient Relationship to Insured Coverage Start Date Coverage End Date [facility] [address] [place] [address] [id number] GLADYS BAZAN Self - patient is the insured Medical (General) History Medical History History ICD Code hyperlipidemia depression myocardial infarction coronary artery disease/stent PVC's chronic obstructive pulmonary disease (C OPD) lung nodule cardiac murmur lung cancer Surgical History Surgery Date(Month/Year) cholecystectomy mastectomy RCA stent 2007 lobectomy: lung neck surgery
--- OUTSIDE RECORDS SUMMARY | 2025-01-15 10:18 | XMS_ITS | Patient Health Record ---
Author Organization [facility] Address [address] [place] [address] Care Team Providers Care Manager Athletics Name Role Phone ANDREW GUZMAN Primary Care Provider Alberto Sprague Unavailable [phone] Allergies Allergen (clinical drug ingredient) Drug/Non Drug Allergy documented on EMR Reaction Allergy Type Onset Date Status Information temporarily unavailable Solu-Medrol Unknown Drug Allergy Active Reason For [...] Status Risk Notes Problem Information temporarily unavailable Malignant neoplasm of unspecified part of right bronchus or lung (C34.91) Active confirmed Problem Information temporarily unavailable Dizziness (R42) Active confirmed Problem Information temporarily unavailable SOB (shortness of breath) (R06.02) Active confirmed Problem Information temporarily unavailable HLD (hyperlipidemia) (E78.5) Active confirmed Problem Information temporarily unavailable GERD (gastroesophageal reflux disease) (K21.9) Active confirmed Problem Information temporarily unavailable Preop cardiovascular exam (Z01.810) Active confirmed Problem Information temporarily unavailable Depression (F32.9) Active confirmed Problem Information temporarily unavailable CAD (coronary artery disease) (I25.10) Active confirmed Problem Information temporarily unavailable Claudication (I73.9) Active confirmed Problem Information temporarily unavailable COPD (chronic obstructive pulmonary disease) (J44.9) Active confirmed Problem Information temporarily unavailable Stented coronary artery (Z95.5) Active confirmed Problem Information temporarily unavailable PVC's (premature ventricular contractions) (I49.3) Active confirmed Problem Information temporarily unavailable Chronic pain (G89.29) Active confirmed Problem Information temporarily unavailable PAC (premature atrial contraction) (I49.1) Active confirmed Problem Information temporarily unavailable Pulmonary emphysema, unspecified emphysema type (J43.9) Active confirmed Problem Information temporarily unavailable Migraine without status migrainosus, not intractable, unspecified migraine type (G43.909) Active confirmed Problem Information temporarily unavailable Sleep disorder (G47.9) Active confirmed Plan Of Treatment No Information Insurance Providers Payer Name Payer Address Payer Phone Subscriber Number Group Number Insured Name Patient Relationship to Insured Coverage Start Date Coverage End Date [employer] [address] [place] [id number] GLADYS BAZAN Self - patient is the insured Medical (General) History Medical History History ICD Code COPD/EMPHYSEMA CAD DEPRESSION SLEEP DISORDER MIGRAINES TODD'S CANCER R-LUNG COLITIS FALLS Surgical History Surgery Date(Month/Year) R-LUNG 1998 COILED CEREBRAL ANEURYSM 2000 4 DISC REPLACEMENT NECK 2005 BILATERAL MASECTOMY 2015 Hospitalization History Reason Date(Month/Year) Aneurysm/Migraine 12/2018
[2025-01-15 10:31] VITALS: PULSE 76; O2SAT 95
== END 2025-01-15 10:56 | disposition home or self-care (01) ==
LOC: HO.HPSW 09:25
PROVIDERS: PCP Family Medicine; Visit Provider Nurse Practitioner Family
DX: J44.9 Chronic obstructive pulmonary disease, unspecified (principal); R06.09 Other forms of dyspnea; Z85.118 Personal history of other malignant neoplasm of bronchus and lung; Z87.891 Personal history of nicotine dependence; R91.1 Solitary pulmonary nodule; R06.83 Snoring; R40.0 Somnolence
CPT/HCPCS: 94618; 99214; G2211

== ENCOUNTER → 2025-01-15 09:24 | Outpatient (BNVA) | payer MEDICARE, SELFPAY | PROVIDERS: PCP Family Medicine; Visit Provider Nurse Practitioner Family | DX: Z01.811 Encounter for preprocedural respiratory examination (principal); Z85.048 Personal history of other malignant neoplasm of rectum, rectosigmoid junction, and anus; J44.9 Chronic obstructive pulmonary disease, unspecified; R06.09 Other forms of dyspnea; R91.1 Solitary pulmonary nodule; R40.0 Somnolence; R06.83 Snoring; Z85.118 Personal history of other malignant neoplasm of bronchus and lung; Z87.891 Personal history of nicotine dependence | CPT/HCPCS: 94618; 99212 ==

== ENCOUNTER 2025-01-21 11:23 | Outpatient (AMB) | payer MEDICARE, SELFPAY ==
--- OUTSIDE RECORDS SUMMARY | 2017-12-25 09:48 | XMS_ITS | Continuity of Care Document ---
Author Organization [facility] Address [address] [place] [address] Phone Care Team Providers Care Spark Tester Name Role Phone Cricket Zimmerman Unavailable Unavailable [...] Abnormal Flag Status Commen ts Panel Description: [id number] Final Image Zeiss Result 1 Advance Directives Directive Yes / No Effective Date File Name No Information Encounters Encounter Description Practice Location Reason(s) For Visit Diagnoses Date Provider Providers Copied on Encounter [facility], [address] [place], [place], [id number] , [place] tel: [phone] [address] [place] decreased vision (chief complaint) Age-related nuclear cataract, bilateralOcular hypertension, bilateralOpen angle with borderline findings, low risk, bilateralPresbyopia Oct-0 8 Elsie Harley. [address] [place] [address], [id number], [place]. tel:[phone] Referring Provider: Cricket Zimmerman [address] [place], [address] . tel:[phone] Family History Family Member Type Diagnosis Age [...] any drops.Pt states when she was in [place] over 5 year ago she was treated for glaucoma w/ drop tx, since she has been in [place] and seen 3 different eye doctors they [...] any drops.Pt states when she was in [place] over 5 year ago she was treated for glaucoma w/ drop tx, since she has been in [place] and seen 3 different eye doctors they [...]
--- NOTE | 2025-01-21 11:25 | MHC.PC.OV ---
Vital Signs 01/21/25 11:30 Height 5 ft 1 in Weight 163 lb BMI 30.8 BP 120/58 L Blood Pressure Location Rt brachial Position Sitting Respiration 16 Pulse 58 Pulse Source Pulse Oximeter Temp 97.9 F Temp Source Oral Pulse Oximetry (%) 95 Oxygen Delivery Method Room Air Intake Visit Reasons: dizzy/stomach pain Intake Note: patient here c/o dizzy and stomach pain Environmental Specialist Required: No Is last menstrual period known: No Post menopausal: No Patient : No Allergies albuterol Allergy (Mild, Verified 01/21/25 11:28) headache, coded on operating table diphtheria,tetanus,poliomyelitis va Allergy (Mild, Verified 01/21/25 11:28) Swelling solumedrol Allergy (Mild, Uncoded 01/21/25 11:28) Anaphylaxis Medication List - Last Reconciled 01/21/25 by Devang Lepe MD cilostazol 50 mg PO BID clopidogrel 75 mg PO DAILY 90 days ezetimibe 10 mg PO DAILY mfknyonsuep-fqsxouenn-aomyjqmt 100-62.5-25 mcg (Trelegy Ellipta) 1 inh inhalation DAILY meloxicam 15 mg PO DAILY PRN 30 days metoprolol succinate ER 12.5 mg (1/2 x 25 mg) PO ONCE nitroglycerin 0.4 mg sublingual Q5M PRN 30 days rosuvastatin 40 mg PO DAILY 90 days semaglutide (Ozempic) 0.25 mg (0.368 mL) subcut QWEEK 30 days sertraline 200 mg (2 x 100 mg) PO DAILY 90 days tizanidine 2 mg PO BID PRN 30 days Tobacco use date assessed: 01/21/25 Fall risk assessment: 2 + Falls in past year Last assessed Fall Risk: 01/21/25 Dental Screening Dental Screen Date: 01/21/25 Did you have a dental visit in the last 12 months?: No Did you have a dental problem in the last 6 months where you did not have access to dental care?: No Was dental information given to patient?: No HPI dizzy/stomach pain HPI Details 69 y/o female presents to f/u abd. discomfort, dizziness. Had been following up with GI. Recent cardiac evaluation for her EGD/colonoscopy and had been cleared. She has her appt. scheduled. She continues to f/u with vascular for PAD. Patient saw Dr. Chan and he did not feel that a bypass was the best choice for her at this time. Reports back pain. She notes she had a MRI for her cervical spine/back in the last 1-2 years. Had seen pain management in the past and had been offered steroid injections. 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 Lung cancer Aneurysm, cerebral Surgical History Hx of colonoscopy History of heart artery stent History of hysterectomy History of partial mastectomy of both breasts History of neck surgery Family History Mother High cholesterol Lung cancer Cardiovascular disease Paternal Grandmother Breast cancer Sister Non-Hodgkin lymphoma Maternal Grandfather Colon cancer Social History Household Members: Family Household Members Other:: sister, sister's boyfriend Both parents involved: No Caregiver staying overnight: No Housing: House Are you a primary healthcare educator to a significant other at home: No Do you presently have visiting nurse or other home services: No 75 years or older and lives alone: No Alcohol intake: current Alcohol intake frequency: a few times a month Alcohol type: beer and hard liquor Comment: on occasion Patient Tobacco Use Status: Former Tobacco user e-Cigarette/Vaping Use: Never Used Second Hand Smoke Exposure: No Current occupational status: disabled Current occupational exposures/hazards: No Cognitive needs: No Hearing needs: Yes (Patient has hearing aids) Vision needs: Yes (Patient wears glasses) Questionnaire Thrive Questionnaire Date Thrive assessed: 07/03/24 I am a: Patient What is your living situation today?: I have a steady place to live Within the past 12 months, did the food you bought not last and you didn't have the money to get more?: Never true Within the past 12 months, did you worry whether your food would run out before you got money to buy more?: Never true Do you have trouble paying for medicines?: No Do you have trouble getting transportation to medical appointments?: Yes Do you have trouble paying your heating and electricity bill?: Yes Do you have trouble taking care of your child, family member or friend?: No Do you have trouble with day-to-day activities such as bathing, preparing meals, shopping, managing finances, etc.?: No Are you currently unemployed and looking for a job?: No Are you interested in more education?: No Currently or been in a relationship where the following occur: No concerns reported THRIVE Score: 2 LEIGHANN-7 AMB Questionnaire LEIGHANN-7 Date LEIGHANN - 7 assessed: 07/06/24 Source: Developed by Drs. Marlo Reed, Roxana Lopez, Justin Bruner and colleagues, with an educational north from [employer]. Review of Systems Const Denies chills, Denies fatigue, Denies fever(s), Denies headache(s) and Denies weakness ENT Denies dizziness and Denies headache(s) Card Denies dyspnea Resp Denies cough, Denies dyspnea, Denies wheezing and Denies other (shortness of breath) Musc Reports back pain, Denies numbness and Denies tingling Neuro Denies dizziness, Denies headache(s), Denies numbness, Denies tingling and Denies weakness Psych Denies anxiety and Denies depression Endo Denies fatigue Aller/Immun Denies wheezing Physical exam (Primary Care) Vital Signs: Last Vital Signs Temp 97.9 F 01/21/25 11:30 Pulse 58 01/21/25 11:30 Resp 16 01/21/25 11:30 BP 120/58 L 01/21/25 11:30 Pulse Ox 95 01/21/25 11:30 Oxygen Delivery Method Room Air 01/21/25 11:30 BMI result Body Mass Index 30.8 Tobacco/Smoking Status: Tobacco use Status Tobacco use date assessed 01/21/25 01/21/25 11:34 Patient Tobacco Use Status Former Tobacco user 01/21/25 11:27 e-Cigarette/Vaping Use Never Used 01/21/25 11:27 Thrive Assessment: Date of Thrive Assessment Date Thrive assessed 07/03/24 01/21/25 11:27 Currently or been in a relationship where the following occur: No concerns reported Const General: well developed; No acute distress Nutritional Appearance: well nourished Orientation/consciousness: patient oriented x3 HENMT Head: Yes normocephalic and Yes atraumatic Eyes General: appearance normal, both eyes and all related structures Pupils: Equal, round and reactive pupils present EOM: EOMs intact bilaterally Resp Effort & Inspection: normal respiratory effort Neuro General: patient oriented x3 and gait normal Cranial nerves: Yes Equal, round and reactive pupils present Psych Affect: normal affect Coding Level of Care Code Est Pt Level 4 (72075) Diagnoses Abdominal pain R10.9 Atherosclerotic cardiovascular disease I25.10 PAD (peripheral artery disease) I73.9 Obesity E66.9 Back pain M54.9 Assessment & Plan Assessment & Plan (1) Abdominal pain: Code(s): R10.9 - Unspecified abdominal pain Category: Medical Plan: Ongoing abdominal discomfort and followed by Gastroenterology, Dr. Mcdonough. Plan is endoscopy and she is now cleared by Cardiology. Has appointment next month. Follow-up with GI as recommended (2) Atherosclerotic cardiovascular disease: Code(s): I25.10 - Atherosclerotic heart disease of [place] coronary artery without angina pectoris Category: Medical Plan: Followed by [facility] cardiology. Stable She is on Plavix, beta-blockers and statins and these can be continued Follow-up with Cardiology as recommended (3) PAD (peripheral artery disease): Comment: 2020 - iliac stenting in [place] right only Code(s): I73.9 - Peripheral vascular disease, unspecified Category: Medical Plan: Patient saw Dr. Chan and he did not feel that a bypass was the best choice for her at this time. Giving her a script for cilostazol which she is taking. Continue walking as tolerated Follow-up with vascular surgery as recommended (4) Obesity: Code(s): E66.9 - Obesity, unspecified Category: Medical Plan: Patient wants to try Ozempic. Had sent a script for this which was declined. Will try again and office can get authorization Reiterated to patient that a prior authorization does not guarantee her insurance will cover (5) Back pain: Code(s): M54.9 - Dorsalgia, unspecified Category: Medical Plan: Ongoing neck shoulder and back pain. This appears muscular though patient insists that it is primarily due to a disc problem in neck. She had seen pain management in the past and they had offered steroid injections. Will request report. She also says she had an MRI in [place] in the last 1-2 years. I do not have report In request this as well. Continue meloxicam Will give her a script for a muscle relaxer Ice/heat and gentle stretching Follow-up in 1 month to review prior imaging records and determine next steps. Medications: New semaglutide (Ozempic) for 4 weeks 0.25 mg (0.368 mL) subcut QWEEK 1.84 mL 0RF 30 days E66.9 - Obesity, unspecified, I25.10 - Atherosclerotic heart disease of [place] coronary artery without angina pectoris, Z95.5 - Presence of coronary angioplasty implant and graft tizanidine 2 mg PO BID PRN 60 caps 0RF muscle spasticity 30 days Refilled meloxicam 15 mg PO DAILY PRN 30 tabs 2RF Severe pain 30 days M54.2 - Cervicalgia
[2025-01-21 11:30] VITALS: BP 120/58; PULSE 58; RESP 16; TEMP 36.6; O2SAT 95; BMI 30.8
--- OUTSIDE RECORDS SUMMARY | 2025-01-21 14:18 | XMS_ITS | Patient Health Record ---
Author Organization [facility] Address [address] [place] [address] Care Team Providers Care Balance Wheel Motion Inspector Name Role Phone ANDREW GUZMAN Primary Care Provider Alberto Sprague Unavailable [phone] Allergies Allergen (clinical drug ingredient) Drug/Non Drug [...] Notes Problem Primary malignant neoplasm of lung (43289234) Malignant neoplasm of unspecified part of right bronchus or lung (C34.91) Active confirmed Problem Dizziness (106557825) Dizziness (R42) Active confirmed Problem Dyspnea (091728596) SOB (shortne ss of breath) (R06.02) Active confirmed Problem Hyperlipidaemia (97850467) HLD (hyperlipidemia) (E78.5) Active confirmed Problem Gastroesophageal reflux disease (446691496) GERD (gastroesophageal reflux disease) (K21.9) Active confirmed Problem Preoperative cardiovascular examination (420594706) Preop cardiovascular exam (Z01.810) Active confirmed Problem Depression (734691634) Depression (F32.9) Active confirmed Problem Coronary artery disease (90577141) CAD (coronary artery disease) (I25.10) Active confirmed Problem Claudication (42548059) Claudication (I73.9) Active confirmed Problem COPD - Chronic obstructive pulmonary disease (30203670) COPD (chronic obstructive pulmonary disease) (J44.9) Active confirmed Problem Stented coronary artery (612630734) Stented coronary artery (Z95.5) Active confirmed Problem Multiple premature ventricular complexes (disorder) (261555042) PVC's (premature ventricular contractions) (I49.3) Active confirmed Problem Chronic pain (73904158) Chronic pain (G89.29) Active confirmed Problem Supraventricular premature beats (44230150) PAC (premature atrial contraction) (I49.1) Active confirmed Problem Pulmonary emphysema (17233745) Pulmonary emphysema, unspecified emphysema type (J43.9) Active confirmed Problem Migraine (15467319) Migraine wit hout status migrainosus, not intractable, unspecified migraine type (G43.909) Active confirmed Problem Sleep disorder (54466437) Sleep disorder (G47.9) Active confirmed Plan Of Treatment No Information Insurance Providers Payer Name Payer Address Payer Phone Subscriber Number Group Number Insured Name Patient Relationship to Insured Coverage Start Date Coverage End Date [employer] [address] [place] [address] [id number] GLADYS BAZAN Self - patient is the insured Medical (General) History Medical History History ICD Code COPD/EMPHYSEMA CAD DEPRESSION SLEEP DISORDER MIGRAINES TODD'S CANCER R-LUNG COLITIS FALLS Surgical History Surgery Date(Month/Year) R-LUNG 1998 COILED CEREBRAL ANEURYSM 2000 06 DISC REPLACEMENT NECK 2004 BILATERAL MASECTOMY 2014 Hospitalization History Reason Date(Month/Year) Aneurysm/Migraine 12/2018
--- OUTSIDE RECORDS SUMMARY | 2025-01-21 14:18 | XMS_ITS | Patient Health Record ---
Author Organization [facility] Address [address] [place] [address] Care Team Providers Care Wind Commissioning Technician Name Role Phone RUBI WEEKS MD Primary Care Provider MANNY Murphy Unavailable [phone] Allergies Allergen (clinical drug ingredient) Drug/Non Drug [...] ER 500 MG TAKE 1 TABLET BY [facility] TWICE A DAY FOR 30 DAYS; Duration: [...] Status W/U Status Risk Notes Problem Anxiety (71901515) Anxiety (F41.9) Active confi rmed Problem Peripheral vascular disease (847946940) PAD (peripheral artery disease) (I73.9) Active confirmed Problem Hyperlipidaemia (11843676) Hyperlipidemia, unspecified hyperlipidemia type (E78.5) Active confirmed Problem Claudication (79580254) Claudication (I73.9) Active confirmed Problem Supraventricular premature beats (54807040) PAC (premature atrial contraction) (I49.1) Active confirmed Problem Smoker (45832607) Smoker (F17.200) Active confi rmed Problem Radiology result abnormal (046866762) Abnormal chest CT (R93.89) Active confirmed Problem Angina pectoris (088311334) Angina pectoris (I20.9) Active confirmed Problem Thoracic aortic aneurysm without rupture (61782936) Thoracic aortic aneurysm without rupture (I71.2) Active confirmed Problem Gastroesophageal reflux disease (275423767) Gastroesophageal reflux disease, unspecified whether esophagitis present (K21.9) Active confirmed Problem Coronary arteriosclerosis (disorder) (02057344) CAD in [place] artery (I25.10) Active confirmed Plan Of Treatment Pending Test Test Name Order Date ECG RECORDING 10/27/2021 Insurance Providers Payer Name Payer Address Payer Phone Subscriber Number Group Number Insured Name Patient Relationship to Insured Coverage Start Date Coverage End Date [facility] [address] [place] [address] [id number] GLADYS BAZAN Self - patient is the insured Medical (General) History Medical History History ICD Code hyperlipidemia depression myocardial infarction coronary artery disease/stent PVC's chronic obstructive pulmonary disease (C OPD) lung nodule cardiac murmur lung cancer Surgical History Surgery Date(Month/Year) cholecystectomy mastectomy RCA stent 2007 lobectomy: lung neck surgery
--- OUTSIDE RECORDS SUMMARY | 2025-01-21 14:18 | XMS_ITS | Patient Health Record ---
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 [employer] current use of opiate analgesic (Z79.891) Active confirmed Problem Spinal stenosis (75578873) Spinal stenosis (M48.00) Active confirmed Problem Occipital neuralgia (10536723) Bilateral occipital neuralgia (M54.81) Active confirmed Problem Cervical vertebral fusion syndrome (5790495) Cervical vertebral fusion syndrome (Q76.1) Active confirmed Plan Of Treatment Pending Test Test Name Order Date CT SCAN : C-Spine W W/O Contrast 018 Insurance Providers Payer Name Payer Address Payer Phone Subscriber Number Group Number Insured Name Patient Relationship to Insured Coverage Start Date Coverage End Date [facility] [address] [place] [address] [id number] Luna Elliott Self - patient is the insured Medical (General) History Medical History History ICD Code heart attack osteoporosis lung cancer anxiety depression Surgical History Surgery Date(Month/Year) ACDF 2005 Stent hysterectomy aneurysm cervical gallbladder removed 2017 Bronchoscopy and biospy 2019 Hospitalization History Reason Date(Month/Year) gallbladder removed June 2017
== END 2025-01-21 11:54 | disposition home or self-care (01) ==
LOC: HO.HMCFM 11:24
PROVIDERS: PCP Family Medicine; Visit Provider Family Medicine
DX: R10.9 Unspecified abdominal pain (principal); I25.10 Atherosclerotic heart disease of native coronary artery without angina pectoris; Z68.30 Body mass index [BMI] 30.0-30.9, adult; E66.9 Obesity, unspecified; I73.9 Peripheral vascular disease, unspecified; M54.9 Dorsalgia, unspecified

== ENCOUNTER → 2025-01-21 11:23 | Outpatient (BNVA) | payer MEDICARE, SELFPAY | PROVIDERS: PCP Family Medicine; Visit Provider Family Medicine | DX: R10.9 Unspecified abdominal pain (principal); I25.10 Atherosclerotic heart disease of native coronary artery without angina pectoris; I73.9 Peripheral vascular disease, unspecified; M54.9 Dorsalgia, unspecified; E66.9 Obesity, unspecified; Z68.30 Body mass index [BMI] 30.0-30.9, adult; Z87.891 Personal history of nicotine dependence; Z71.3 Dietary counseling and surveillance | CPT/HCPCS: 99212 ==

== ENCOUNTER 2025-02-09 11:28 | Day surgery (SDC) | payer MEDICARE, SELFPAY ==
--- OUTSIDE RECORDS SUMMARY | 2017-12-25 09:48 | XMS_ITS | Continuity of Care Document ---
Author Organization [facility] Address [address] [place] [address] Phone Care Team Providers Care Hydraulic Jack Mechanic Name Role Phone Cricket Zimmerman Unavailable [...] Abnormal Flag Status Commen ts Panel Description: [id number] Final Image Zeiss Result 1 Advance Directives Directive Yes / No Effective Date File Name No Information Encounters Encounter Description Practice Location Reason(s) For Visit Diagnoses Date Provider Providers Copied on Encounter [facility], [address] [place], [place], [id number] , [place] tel: [phone] [address] [place] decreased vision (chief complaint) Age-related nuclear cataract, bilateralOcular hypertension, bilateralOpen angle with borderline findings, low risk, bilateralPresbyopia Oct-0 8 Elsie Harley. [address] [place] [address], [id number], [place]. tel:[phone] Referring Provider: Cricket Zimmerman [address] [place], [address] . tel:[phone] Family History Family Member Type Diagnosis Age [...] ADD/ADHD Payers Payer name Insurance type Covered republican ID Authoriza tion(s) No Information Social History [...] any drops.Pt states when she was in [place] over 5 year ago she was treated for glaucoma w/ drop tx, since she has been in [place] and seen 3 different eye doctors they [...] any drops.Pt states when she was in [place] over 5 year ago she was treated for glaucoma w/ drop tx, since she has been in [place] and seen 3 different eye doctors they [...]
--- OUTSIDE RECORDS SUMMARY | 2025-01-07 11:50 | XMS_ITS | Patient Health Record ---
Author Organization [facility] Address [address] [place] [address] Care Team Providers Care Laboratory Chemical Assistant Name Role Phone RUBI WEEKS MD Primary Care Provider MANNY Murphy Unavailable [phone] Allergies Allergen (clinical drug ingredient) Drug/Non Drug Allergy documented on EMR Reaction Allergy Type Onset Date Status methylprednisolone Solu-Medrol Unknown Drug Allergy Active Tetanus-Diphtheria Toxoids Td Unknown Drug Allergy Active albuterol Albuterol Unknown Drug Allergy Active Reason For Referral No Information Medications Medication SIG (Take, Route, Frequency, Duration) Notes Start Date End Date Status tiZANidine HCl 2 MG 1 tablet as needed Orally Three times a day Active Nitroglycerin 0.4 MG as directed Subling ual as needed for chest pain; Duration: 30 day(s) Active Morphine Sulfate 15 MG 1 tablet as neede d Orally every 4 hrs Active Plavix 75 MG 1 tablet Orally Once a day; Duration: 90 days Active Metoprolol Succinate ER 25 MG TAKE 1 TABLET BY MOUTH EVERY DAY FOR 90 DAYS; Duration: 90 needs OV Active Famotidine 40 MG 1 tablet at bedtime Orally Once a day Active Trelegy Ellipta 100-62.5-25 MCG/INH 1 puff Inhalation Once a day Active Meclizine HCl 25 MG 1 tablet as needed Orally Once a day Active Ranolazine ER 500 MG TAKE 1 TABLET BY [facility] TWICE A DAY FOR 30 DAYS; Duration: 90 Active Rosuvastatin Calcium 40 MG 1 tablet Oral ly Once a day Active oxyCODONE-Acetaminophen 5-325 MG 1 tablet as needed Orally every 6 hrs Active Aspirin Adult Low Dose 81 MG 1 tablet Orally Once a day Active Sertraline HCl 100 MG 2 tab Orally Once a day Active Social History Tobacco Use: Social History Observation Description Date Details (start date - stop date) Current Smoker NA - NA Tobacco Use/Smoking Question Answer Notes Are you a current smoker How often do you smoke cigarettes? every day How many cigarettes a day do you smoke? 11-20 Problems Problem Type SNOMED Code ICD Code Onset Dates Problem Status W/U Status Risk Notes Problem Anxiety (25867282) Anxiety (F41.9) Active confi rmed Problem Peripheral vascular disease (108645701) PAD (peripheral artery disease) (I73.9) Active confirmed Problem Hyperlipidaemia (41221528) Hyperlipidemia, unspecified hyperlipidemia type (E78.5) Active confirmed Problem Claudication (11356169) Claudication (I73.9) Active confirmed Problem Supraventricular premature beats (92580139) PAC (premature atrial contraction) (I49.1) Active confirmed Problem Smoker (36854309) Smoker (F17.200) Active confi rmed Problem Radiology result abnormal (984622592) Abnormal chest CT (R93.89) Active confirmed Problem Angina pectoris (319302676) Angina pectoris (I20.9) Active confirmed Problem Thoracic aortic aneurysm without rupture (16698780) Thoracic aortic aneurysm without rupture (I71.2) Active confirmed Problem Gastroesophageal reflux disease (230414389) Gastroesophageal reflux disease, unspecified whether esophagitis present (K21.9) Active confirmed Problem Coronary arteriosclerosis (disorder) (28985308) CAD in [place] artery (I25.10) Active confirmed Plan Of Treatment Pending Test Test Name Order Date ECG RECORDING 10/27/2021 Insurance Providers Payer Name Payer Address Payer Phone Subscriber Number Group Number Insured Name Patient Relationship to Insured Coverage Start Date Coverage End Date [facility] [address] [place] [address] [id number] GLADYS BAZAN Self - patient is the insured Medical (General) History Medical History History ICD Code hyperlipidemia depression myocardial infarction coronary artery disease/stent PVC's chronic obstructive pulmonary disease (C OPD) lung nodule cardiac murmur lung cancer Surgical History Surgery Date(Month/Year) cholecystectomy mastectomy RCA stent 2007 lobectomy: lung neck surgery
--- OUTSIDE RECORDS SUMMARY | 2025-01-07 11:50 | XMS_ITS | Patient Health Record ---
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 Name Role Phone Radha Morales Primary Care Provider TIN Ruiz Unavailable [phone] Allergies Allergen (clinical drug ingredient) Drug/Non Drug Allergy documented on EMR Reaction Allergy Type Onset Date Status methylprednisolone Solu-medrol (uncoded) anaphylaxis Allergy Active Tetanus Immune Globulin anaphylaxis Drug Allergy Active Reason For Referral No Information Medications Medication SIG (Take, Route, Frequency, Duration) Notes Start Date End Date Status Omeprazole 20 MG Capsule Delayed Release TAKE 1 CAPSULE BY MOUTH TWICE A DAY Oral; Duration: 90 Active Aspir-81 81 MG Tablet Delayed Release 1 tablet Orally Once a day 05/09/2017 Active Sertraline HCl 100 MG Tablet 1 tablet Orally BID Active traMADol HCl 50 MG Tablet 1 tablet as ne eded Orally TID FOR NON ACUTE PAIN; Duration: 30 days Active tiZANidine HCl 4 MG Tablet TAKE 1 TABLET BY MOUTH EVERY DAY AT BEDTIME NEEDED Oral; Duration: 30 Active Gabapentin 400 MG Capsule 1 capsule Oral ly TID; Duration: 30 day(s) Active Meclizine HCl 25 MG Tablet TAKE 1 TABLET BY MOUTH EVERY 8 HOURS NEEDED Oral; Duration: 10 Active Rosuvastatin Calcium 40 MG Tablet TAKE 1 TABLET BY MOUTH EVERY DAY Oral; Duration: 90 Active Pantoprazole Sodium 40 MG Tablet Delayed Release TAKE 1 TABLET BY MOUTH EVERY DAY Oral; Duration: 90 Active Social History Tobacco Use: Social History Observation Description Date Details (start date - stop date) Current Smoker NA - NA Social History Drugs/Alcohol: Social Info Question Answer Notes Alcohol Screen (Audit-C) Did you have a drink containing alcohol in the past year? Yes How many drinks did you have on a typical day when you were drinking in the past year? 1 or 2 drinks (0 point) How often did you have 6 or more drinks on one occasion in the past year? Never (0 point) Points 0 Interpretation Negative Tobacco Use: Social Info Question Answer Notes Tobacco Use/Smoking Are you a current smoker When did you start smoking? age 12 How often do you smoke cigarettes? every day How many cigarettes a day do you smoke? 11-20 How soon after you wake up do you smoke your first cigarette? 31-60 minutes Are you interested in quitting? 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 analgesic (Z79.891) Active confirmed Problem Spinal stenosis (96201329) Spinal stenosis (M48.00) Active confirmed Problem Occipital neuralgia (73983617) Bilateral occipital neuralgia (M54.81) Active confirmed Problem Cervical vertebral fusion syndrome (9658066) Cervical vertebral fusion syndrome (Q76.1) Active confirmed Plan Of Treatment Pending Test Test Name Order Date CT SCAN : C-Spine W W/O Contrast 018 Insurance Providers Payer Name Payer Address Payer Phone Subscriber Number Group Number Insured Name Patient Relationship to Insured Coverage Start Date Coverage End Date [facility] [address] [place] [address] [id number] Luna Elliott Self - patient is the insured Medical (General) History Medical History History ICD Code heart attack osteoporosis lung cancer anxiety depression Surgical History Surgery Date(Month/Year) ACDF 2005 Stent hysterectomy aneurysm cervical gallbladder removed 2017 Bronchoscopy and biospy 2019 Hospitalization History Reason Date(Month/Year) gallbladder removed June 2017
--- OUTSIDE RECORDS SUMMARY | 2025-01-07 11:51 | XMS_ITS | Patient Health Record ---
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 Gatherer Name Role Phone ANDREW GUZMAN Primary Care Provider Alberto Sprague Unavailable [phone] Allergies Allergen (clinical drug ingredient) Drug/Non Drug Allergy documented on EMR Reaction Allergy Type Onset Date Status methylprednisolone Solu-Medrol Unknown Drug Allergy Active Reason For Referral No Information Medications Medication SIG (Take, Route, Frequency, Duration) Notes Start Date End Date Status Rosuvastatin Calcium 20 MG Tablet 1 1/2 Orally Once a day Acti ve Zoloft 100 MG Tablet 2 tablets Orally On ce a day Active Gabapentin 400 MG Capsule 1 capsule Orally QID Active Omeprazole 20 MG Capsule Delayed Release 1 tablet 30 minutes before a meal Orally Once a day Active traMADol HCl 50 MG Tablet 1 tablet as ne eded Orally every 6 hrs Active Aspir-81 81 MG Tablet Delayed Release 1 tablet Orally Once a day Active Pantoprazole 40 mg Tablet 1 Tablet Orally QD Active tiZANidine HCl 4 MG Tablet 1 tablet as n eeded Orally Q 4 HRS PRN Active Meclizine HCl 25 MG Tablet 1 tablet as n eeded Orally Q 8 HRS PRN Active Social History Tobacco Use: Social History Observation Description Date Details (start date - stop date) Current Smoker NA - NA Social History Social History Social Info Question Answer Notes Caffeine: How much caffeine do you consume daily? (Coffee),, (Soda) Smoking: Are you a: current smoker How many cigarettes a day do you smoke? 1 to 15 daily Are you intrested in quitting? Yes Problems Problem Type SNOMED Code ICD Code Onset Dates Problem Status W/U Status Risk Notes Problem Primary malignant neoplasm of lung (70664192) Malignant neoplasm of unspecified part of right bronchus or lung (C34.91) Active confirmed Problem Dizziness (303600881) Dizziness (R42) Active confirmed Problem Dyspnea (491213337) SOB (shortne ss of breath) (R06.02) Active confirmed Problem Hyperlipidaemia (84750833) HLD (hyperlipidemia) (E78.5) Active confirmed Problem Gastroesophageal reflux disease (288590377) GERD (gastroesophageal reflux disease) (K21.9) Active confirmed Problem Preoperative cardiovascular examination (047159813) Preop cardiovascular exam (Z01.810) Active confirmed Problem Depression (320961176) Depression (F32.9) Active confirmed Problem Coronary artery disease (53060767) CAD (coronary artery disease) (I25.10) Active confirmed Problem Claudication (25423747) Claudication (I73.9) Active confirmed Problem COPD - Chronic obstructive pulmonary disease (44592576) COPD (chronic obstructive pulmonary disease) (J44.9) Active confirmed Problem Stented coronary artery (604404693) Stented coronary artery (Z95.5) Active confirmed Problem Multiple premature ventricular complexes (disorder) (414027188) PVC's (premature ventricular contractions) (I49.3) Active confirmed Problem Chronic pain (09910939) Chronic pain (G89.29) Active confirmed Problem Supraventricular premature beats (33565490) PAC (premature atrial contraction) (I49.1) Active confirmed Problem Pulmonary emphysema (20149494) Pulmonary emphysema, unspecified emphysema type (J43.9) Active confirmed Problem Migraine (35874731) Migraine wit hout status migrainosus, not intractable, unspecified migraine type (G43.909) Active confirmed Problem Sleep disorder (48407693) Sleep disorder (G47.9) Active confirmed Plan Of Treatment No Information Insurance Providers Payer Name Payer Address Payer Phone Subscriber Number Group Number Insured Name Patient Relationship to Insured Coverage Start Date Coverage End Date [employer] [address] [place] [address] [id number] GLADYS BAZAN Self - patient is the insured Medical (General) History Medical History History ICD Code COPD/EMPHYSEMA CAD DEPRESSION SLEEP DISORDER MIGRAINES TODD'S CANCER R-LUNG COLITIS FALLS Surgical History Surgery Date(Month/Year) R-LUNG 1998 COILED CEREBRAL ANEURYSM 2000 06 DISC REPLACEMENT NECK 2004 BILATERAL MASECTOMY 2014 Hospitalization History Reason Date(Month/Year) Aneurysm/Migraine 12/2018
[2025-02-05 10:57] VITALS: BMI 30.8
--- NOTE | 2025-02-05 12:05 | HO.ANESPROP2 ---
Documented by User: Hanna Vitale NP 02/05/25 14:16 HPI - Anesthesia Eval Consult details Narrative: 69 yr old female for Upper Endoscopy and Colonoscopy Prescribed GLP-1 but not yet started CAD: Follows [facility] cardiology;H/O RCA stenting 2007. She had one further catheterization 2021 but no new findings. Echocardiogram 2023-LVEF 60-65%. No significant valvular findings and otherwise unremarkable. Myocardial perfusion imaging study shows likely normal perfusion. Last visit was 01/11/25, deemed intermediate cardiac risk. COPD: Follows [facility] pulmonology, last visit was 01/15/25, pt still having SOB on exertion, wheezing, deemed intermediate risk for GI procedure. H/O lung CA with lobectomy PAD: follows with vascular, Dr. Chan, stable at September 2024 visit, recommends surveillance for now. AAA: stable on 2024 [facility] Active Problems Active Problems: All Active Problems Back pain (Acute) Daytime somnolence (Acute) Loud snoring (Acute) Elevated TSH (Acute) Obesity (Acute) AAA (abdominal aortic aneurysm) without rupture (Acute) PAD (peripheral artery disease) (Acute) PAC (premature atrial contraction) (Acute) Preop cardiovascular exam (Acute) History of anal cancer (Acute) Change in bowel habit (Acute) Shortness of breath (Acute) Chest discomfort (Acute) Pulmonary nodule (Acute) Atherosclerotic cardiovascular disease (Acute) Nocturnal hypoxemia (Acute) Adult general medical exam (Acute) Breast cancer screening by mammogram (Acute) Hyperlipidemia (Acute) Abdominal pain (Acute) Mass of anus (Acute) Personal history of tobacco use (Acute) Dyspnea on minimal exertion (Acute) Tachycardia (Acute) Anxiety and depression (Acute) History of lung cancer (Acute) COPD (chronic obstructive pulmonary disease) (Acute) Presence of stent in coronary artery in patient with coronary artery disease (Acute) Cervicalgia (Acute) 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 (Acute) Palpitations (Acute) Past Medical History Medical History On home O2 COPD (chronic obstructive pulmonary disease) Cerebral aneurysm Breast cancer Cervicalgia Pulmonary nodule CAD (coronary artery disease) Hyperlipidemia Depression Anal cancer PAC (premature atrial contraction) PAD (peripheral artery disease) COPD (chronic obstructive pulmonary disease) AAA (abdominal aortic aneurysm) without rupture Rectal cancer Palpitations Anxiety 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 Lung cancer Aneurysm, cerebral Family History Family History Mother High cholesterol Lung cancer Cardiovascular disease Paternal Grandmother Breast cancer Sister Non-Hodgkin lymphoma Maternal Grandfather Colon cancer Surgical History Surgical History Hx of abdominal surgery History of esophagogastroduodenoscopy (EGD) Hx of brain surgery Hx of colonoscopy History of heart artery stent History of hysterectomy History of partial mastectomy of both breasts History of neck surgery Social History Social History Household Members: Family Household Members Other:: sister, sister's boyfriend Housing: House Are you a primary critical care unit manager to a significant other at home: No Do you presently have visiting nurse or other home services: No Alcohol intake: current Alcohol intake frequency: holidays/special occasions only Alcohol type: beer and hard liquor Comment: on occasion Patient Tobacco Use Status: Former Tobacco user e-Cigarette/Vaping Use: Never Used Second Hand Smoke Exposure: No Use of substances other than those prescribed or required for medical reasons: No Are you DNR?: No Advance Directives: No Advance Directives Information Provided: Yes Current occupational status: disabled Current occupational exposures/hazards: No Cognitive needs: No Hearing needs: Yes (Patient has hearing aids) Vision needs: Yes (Patient wears glasses) Meds Allergies Allergy/AdvReac Type Severity Reaction Status Date / Time albuterol Allergy Mild headache, Verified 02/09/25 12:17 coded on operating table diphtheria,tetanus,poliomyelitis Allergy Mild Swelling Verified 02/09/25 12:17 va solumedrol Allergy Mild Anaphylaxis Uncoded 01/21/25 11:28 Home Medications ?Medication ?Instructions ?Recorded ?Confirmed ?Last Taken ?Type metoprolol succinate 25 mg 12.5 mg PO DAILY 02/09/25 02/09/25 02/02/25 History tablet,extended release 24 hr Exam Height,Weight and Vital Signs: Height 5 ft 1 in Weight 73.936 kg Pertinent Lab Results Pertinent Lab Results: Laboratory Tests 08/26/24 09/23/24 11:05 06:22 WBC 6.6 RBC 4.55 Hgb 13.3 Hct 40.0 Plt Count 169 Sodium 142 Potassium 4.7 Chloride 108 Carbon Dioxide 26 BUN 38 H Creatinine 1.36 Narrative Narrative: EKG 12/2024 NSR, rate [address] abnormality ECHO 08/2023 Conclusions: - 1. Normal LV ejection fraction of 60 65% with impaired relaxation filling pattern 2. Normal cardiac valvular Doppler 3. Normal RV systolic pressure 4. No gross pericardial effusion Cardiolite Stress Test 01/2024 Impression: 1. Myocardial perfusion imaging study shows likely normal myocardial perfusion 2. Gated LVEF is 67% 3. 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 Lung cancer Aneurysm, cerebral Family History Family History Mother High cholesterol Lung cancer Cardiovascular disease Paternal Grandmother Breast cancer Sister Non-Hodgkin lymphoma Maternal Grandfather Colon cancer Surgical History Surgical History Hx of abdominal surgery History of esophagogastroduodenoscopy (EGD) Hx of brain surgery Hx of colonoscopy History of heart artery stent History of hysterectomy History of partial mastectomy of both breasts History of neck surgery History of Problems with Anesthesia: No Social History Social History Household Members: Family Household Members Other:: sister, sister's boyfriend Housing: House Are you a primary critical care unit manager to a significant other at home: No Do you presently have visiting nurse or other home services: No Alcohol intake: current Alcohol intake frequency: holidays/special occasions only Alcohol type: beer and hard liquor Comment: on occasion Patient Tobacco Use Status: Former Tobacco user e-Cigarette/Vaping Use: Never Used Second Hand Smoke Exposure: No Use of substances other than those prescribed or required for medical reasons: No Are you DNR?: No Advance Directives: No Advance Directives Information Provided: Yes Current occupational status: disabled Current occupational exposures/hazards: No Cognitive needs: No Hearing needs: Yes (Patient has hearing aids) Vision needs: Yes (Patient wears glasses) Meds Allergies Allergy/AdvReac Type Severity Reaction Status Date / Time albuterol Allergy Mild headache, Verified 02/09/25 12:17 coded on operating table diphtheria,tetanus,poliomyelitis Allergy Mild Swelling Verified 02/09/25 12:17 va solumedrol Allergy Mild Anaphylaxis Uncoded 01/21/25 11:28 Home Medications ?Medication ?Instructions ?Recorded ?Confirmed ?Last Taken ?Type metoprolol succinate 25 mg 12.5 mg PO DAILY 02/09/25 02/09/25 02/02/25 History tablet,extended release 24 hr Exam Airway Mallampati Class: II (edentulous) TM Dist: >3cm Neck ROM: Full Denture: Upper and Lower Loose/Missing/Broken Teeth: Yes, Upper and Lower Heart: RRR Lungs: CTA Assessment and Plan Assessment Anesthesia Assessment: Anesthesia Plan Discussed and Chart Reviewed Final Anesthetic Review History of Problems with Anesthesia: No NPO: Yes ASA Class: III Final Preanesthetic Review: Meds/Allgs Chart Reviewed, Consent Obtained/Reviewed and Anes Risks/Benef Reviewed Patient Risk: Intermediate Anesthetic Plan Anesthetic Plan: MAC: Disposition: Standard PACU
--- NOTE | 2025-02-09 11:52 | MHC.SHP ---
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 Lung cancer Aneurysm, cerebral Surgical History (Updated 01/29/24 @ 10:12 by YOLANDA De La Cruz) Hx of colonoscopy History of heart artery stent History of hysterectomy History of partial mastectomy of both breasts History of neck surgery Present Medications: see Short Stay Collaborative assessment Allergies: Allergies Allergy/AdvReac Type Severity Reaction Status Date / Time albuterol Allergy Mild headache, Verified 02/09/25 11:44 coded on operating table diphtheria,tetanus,poliomyelitis Allergy Mild Swelling Verified 01/21/25 11:28 va solumedrol Allergy Mild Anaphylaxis Uncoded 01/21/25 11:28 Review of Systems Review of Systems Comment: Ten point ROS negative Exam Exam Comment: Gen appear: No acute distress HEENT: no icterus Chest: Audible wheezing with mild tachypnea Abd: soft, nontender, nondistended Psych: Stable affect, answering questions appropriately Neuro: A/Ox3 noted to move all extremities spontaneously Ext: no peripheral edema Plan Diagnosis/Plan: Unchanged I have reviewed the history and physical and performed a pertinent physical examination on my patient. No changes have occurred unless specified. Time Spent With Patient Time: Total time managing care of this patient today ____ minutes.
[2025-02-09 12:02] VITALS: BP 129/74; PULSE 94; RESP 18; TEMP 36.7; O2SAT 93; BMI 29.5
[2025-02-09] MEDS: Lactated Ringers 1,000 ML 100 ML IVCONT (12:13)
--- NOTE | 2025-02-09 13:29 | P.OPN-COLO_ITS ---
Colonoscopy Operative Note Operative Note Date of Service: 02/09/25 Narrative: Procedure: Upper endoscopy and colonoscopy Indication: Change in bowel habits, hx of anal scc Endoscopist: Indu Hines MD Anesthesia Provider: Darin Huffman Anesthesia type: MAC Instrument: [id number] and [id number] Colonoscopy Procedure:? The procedure, indications, preparation and potential complications were reviewed with the patient, who indicated understanding and gave written informed consent to proceed. A digital rectal exam was performed which was normal.? A distal attachment cap was affixed to the tip of the scope and the colonoscope was then inserted through the anus and advanced through the colon and advanced to the cecum at 75 cm and terminal ileum.? Appendiceal orifice and ileocecal valve were identified. Mucosa was carefully examined under high definition white light as the instrument was slowly withdrawn in a retrograde panoramic fashion. Retroflexion was performed in rectum. The procedure was not difficult. The quality of the prep was BBPS: 3+2+2 = adequate Withdrawal time 12 minutes Limitations: No limitations Colonoscopy Findings: Mucosa: Normal colon and terminal ileum mucosa. Cold forceps biopsies were taken from right and left side of the colon to rule out microscopic colitis. Protruding lesions: * 1 sessile polyp of size 4 mm noted in descending colon. Cold forceps polypectomy was performed. The polyp was completely removed and retrieved. * 1 sessile polyp of size 5 mm noted in sigmoid colon. Cold snare polypectomy was performed. The polyp was completely removed and retrieved. * Medium internal hemorrhoids without stigmata of recent bleeding. Excavated lesions: * Mild to moderate diverticulosis of left colon. EGD Procedure:?? The patient was then turned for the upper endoscopy. The endoscope was intr oduced through the bite block, and advanced to the 2nd part of the duodenum. The mucosa was carefully examined on slow withdrawal of the endoscope. The patient tolerated the procedure well. There were no immediate complications.? EGD Findings:? * Esophagus:? Normal esophageal mucosa was noted. The Z-line was at 35 cm and displaced by a hiatal hernia with the diaphragmatic pinch at 38 cm. Cold forceps biopsies were taken from [] to rule out [] * Stomach:? Velvety appearance of gastric mucosa in the antrum with erythema and erosions in the body. NBI exam was performed which demonstrated ridge like pattern suspicious for underlying gastric intestinal metaplasia. Retroflexion was performed in the cardia that showed Hill grade 2 hiatal hernia. Cold forceps biopsies were taken from the gastric antrum and body of the stomach as per carlton protocol. * Duodenum:? Edema and erythema in the duodenal bulb and sweep. Remaining duodenal mucosa normal to the extent examined.. Cold forceps biopsies were taken from the duodenal bulb and 2nd portion of the duodenum to rule out celiac sprue. Impression: 1. Normal esophagus 2. Hiatal hernia 3. Gastritis (biopsy) 4. Duodenitis (biopsy) 5. Normal colon and terminal ileum mucosa (biopsy) 6. Total of 2 polyps removed 7. Diverticulosis 8. Internal and external hemorrhoids Recommendations:?? * Follow-up path results * Avoid NSAIDs * H Pylori treatment if biopsies + * Repeat colonoscopy for CRC screening in 5-7 years if patient in good health.
[2025-02-09 13:30] VITALS: BP 118/65; PULSE 78; RESP 18; TEMP 36.6; O2SAT 96
[2025-02-09 13:45] VITALS: BP 120/64; PULSE 76; RESP 18; TEMP 36.6; O2SAT 96
== END 2025-02-09 14:37 | disposition home or self-care (01) ==
PROVIDERS: PCP Family Medicine; Visit Provider Internal Medicine
PROC: (CPT 45380; principal; 2025-02-09 13:20)
DX: R19.4 Change in bowel habit (principal); R10.9 Unspecified abdominal pain; Z85.048 Personal history of other malignant neoplasm of rectum, rectosigmoid junction, and anus; Z85.118 Personal history of other malignant neoplasm of bronchus and lung; K64.8 Other hemorrhoids; K57.30 Diverticulosis of large intestine without perforation or abscess without bleeding; K64.4 Residual hemorrhoidal skin tags; K29.70 Gastritis, unspecified, without bleeding; K44.9 Diaphragmatic hernia without obstruction or gangrene; K29.80 Duodenitis without bleeding; K63.5 Polyp of colon
CPT/HCPCS: 45380; 45385; 43239; 88305; 88313; 88342; J2003; J2704

== ENCOUNTER → 2025-02-09 11:28 | Outpatient (BNV) | payer MEDICARE, SELFPAY | PROVIDERS: PCP Family Medicine; Visit Provider Internal Medicine | DX: R19.4 Change in bowel habit (principal); D12.4 Benign neoplasm of descending colon; K57.90 Diverticulosis of intestine, part unspecified, without perforation or abscess without bleeding; K64.8 Other hemorrhoids; D12.5 Benign neoplasm of sigmoid colon; K29.70 Gastritis, unspecified, without bleeding; K29.80 Duodenitis without bleeding | CPT/HCPCS: 43239; 45380; 45385 ==

== ENCOUNTER 2025-02-22 10:28 | Outpatient (AMB) | payer MEDICARE, SELFPAY ==
--- OUTSIDE RECORDS SUMMARY | 2017-12-25 08:48 | XMS_ITS | Continuity of Care Document ---
Author Organization [facility] Address [address] [place] [address] Phone Care Team Providers Care Security Infrastructure Engineer Name Role Phone Cricket Zimmerman Unavailable Unavailable Allergies, Adverse Reactions, Alerts Substance Reaction Status Criticality METHYLPREDNISOLONE SODIUM SUCCINATE Activ e No Information Medications Medication Instructions Dosage Effective Dates (start - stop) Status Comments gabapentin 300 mg capsule take 2 capsule by oral route every day 600 MG - Active Lipitor 20 mg tablet take 1 tablet by or al route every day 20 MG - Active tramadol 50 mg tablet take 1 tablet by o ral route every 6 hours as needed 50 MG - Active Zoloft 100 mg tablet take 1 tablet by or al route every day 100 MG - Active Procedures Procedure Date OCT-SCODI Posterior Optical Nerve Refraction New Pt Comprehensive Eye Exam Oct- 8 Dilated macular or fundus exam performed Results Test Name Date and Time Measure Units Reference Range Abnormal Flag Status Commen ts Panel Description: [id number] Final Image Zeiss Result 1 Advance Directives Directive Yes / No Effective Date File Name No Information Encounters Encounter Description Practice Location Reason(s) For Visit Diagnoses Date Provider Providers Copied on Encounter [facility], [address] [place], [place], [id number] , [place] tel: [phone] [address] [place] decreased vision (chief complaint) Age-related nuclear cataract, bilateralOcular hypertension, bilateralOpen angle with borderline findings, low risk, bilateralPresbyopia Oct-0 8 Elsie Harley. [address] [place] [address], [id number], [place]. tel:[phone] Referring Provider: Cricket Zimmerman [address] [place], [address] . tel:[phone] Family History Family Member Type Diagnosis Age [...] ADD/ADHD Payers Payer name Insurance type Covered alliance party ID Authoriza tion(s) No Information Social [...] any drops.Pt states when she was in [place] over 5 year ago she was treated for glaucoma w/ drop tx, since she has been in [place] and seen 3 different eye doctors they [...] any drops.Pt states when she was in [place] over 5 year ago she was treated for glaucoma w/ drop tx, since she has been in [place] and seen 3 different eye doctors they [...]
[2025-02-22 10:52] VITALS: BP 124/80; PULSE 82; TEMP 36.4; O2SAT 95; BMI 30.2
--- NOTE | 2025-02-22 10:52 | A.OFFPC_ITS ---
Vital Signs 02/22/25 10:52 Height 5 ft 1 in Weight 160 lb BMI 30.2 BP 124/80 Blood Pressure Location Rt brachial Position Sitting Pulse 82 Pulse Source Pulse Oximeter Temp 97.6 F Temp Source Temporal Artery Scan Pulse Oximetry (%) 95 Oxygen Delivery Method Room Air Intake Visit Reasons: f/u back pain Accompanied by: Sister Allergies albuterol Allergy (Mild, Verified 02/22/25 10:53) headache, coded on operating table diphtheria,tetanus,poliomyelitis va Allergy (Mild, Verified 02/22/25 10:53) Swelling solumedrol Allergy (Mild, Uncoded 02/22/25 10:53) Anaphylaxis Medication List - Last Reconciled 02/22/25 by Devang Lepe MD cilostazol 50 mg PO BID clopidogrel 75 mg PO DAILY 90 days Held on 02/09/25. Instructions: Resume on 02/10/25. HOLD today. OK to resume tomorrow 02/10. ezetimibe 10 mg PO DAILY macyidfjdpq-pigeezfbz-autnxfea 100-62.5-25 mcg (Trelegy Ellipta) 1 inh inhalation DAILY meloxicam 15 mg PO DAILY PRN metoprolol succinate ER 12.5 mg PO DAILY nitroglycerin 0.4 mg sublingual Q5M PRN 30 days omeprazole 20 mg PO DAILY rosuvastatin 40 mg PO DAILY 90 days semaglutide (Ozempic) 0.25 mg (0.368 mL) subcut QWEEK 30 days sertraline 200 mg (2 x 100 mg) PO DAILY 90 days tizanidine 2 mg PO BID PRN 30 days Tobacco use date assessed: 02/22/25 Fall risk assessment: 2 + Falls in past year Last assessed Fall Risk: 02/22/25 Dental Screening Dental Screen Date: 02/22/25 Did you have a dental visit in the last 12 months?: No Did you have a dental problem in the last 6 months where you did not have access to dental care?: No Was dental information given to patient?: No HPI f/u back pain HPI Details 69 y/o female presents to f/u back pain. MRI 12/08/23 of cervical spine shows mild narrowing of L half of spinal canal at C5-6 with focal high T2 signal seen in L dorsal cord. Severe multilevel neural foraminal stenosis Ongoing back/shoulder pain. 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 Lung cancer Aneurysm, cerebral Surgical History Hx of abdominal surgery History of esophagogastroduodenoscopy (EGD) Hx of brain surgery Hx of colonoscopy History of heart artery stent History of hysterectomy History of partial mastectomy of both breasts History of neck surgery Family History Mother High cholesterol Lung cancer Cardiovascular disease Paternal Grandmother Breast cancer Sister Non-Hodgkin lymphoma Maternal Grandfather Colon cancer Social History Household Members: Family Household Members Other:: sister, sister's boyfriend Both parents involved: No Caregiver staying overnight: No Housing: House Are you a primary health care specialist to a significant other at home: No Do you presently have visiting nurse or other home services: No 75 years or older and lives alone: No Alcohol intake: current Alcohol intake frequency: holidays/special occasions only Alcohol type: beer and hard liquor Comment: on occasion Patient Tobacco Use Status: Former Tobacco user e-Cigarette/Vaping Use: Never Used Second Hand Smoke Exposure: No Current occupational status: disabled Current occupational exposures/hazards: No Cognitive needs: No Hearing needs: Yes (Patient has hearing aids) Vision needs: Yes (Patient wears glasses) Questionnaire PHQ-9 Over the last 2 weeks, how often have you been bothered by any of the following problems? 1. Little interest or pleasure in doing things: several days 2. Feeling down, depressed, or hopeless: several days 3. Trouble falling or staying asleep, or sleeping too much: nearly every day 4. Feeling tired or having little energy: nearly every day 5. Poor appetite or overeating: nearly every day 6. Feeling bad about yourself - or that you are a failure or have let yourself or your family down: not at all 7. Trouble concentrating on things, such as reading the newspaper or watching television: not at all 8. Moving or speaking so slowly that other people could have noticed. Or the o pposite - being so fidgety or restless that you have been moving around a lot more than usual: not at all 9. Thoughts that you would be better off or of hurting yourself in some way: not at all Total score: 11 Depression Screening Interpretation: Positive Depression Screening Follow-up: Declines treatment (Already on Sertraline and declines change or referral) Depression Screening Done: Yes Source: Developed by Drs. Marlo Reed, Roxana Lopez, Justin Bruner and colleagues, with an educational north from [employer] Thrive Questionnaire Date Thrive assessed: 07/03/24 I am a: Patient What is your living situation today?: I have a steady place to live Within the past 12 months, did the food you bought not last and you didn't have the money to get more?: Never true Within the past 12 months, did you worry whether your food would run out before you got money to buy more?: Never true Do you have trouble paying for medicines?: No Do you have trouble getting transportation to medical appointments?: Yes Do you have trouble paying your heating and electricity bill?: Yes Do you have trouble taking care of your child, family member or friend?: No Do you have trouble with day-to-day activities such as bathing, preparing meals, shopping, managing finances, etc.?: No Are you currently unemployed and looking for a job?: No Are you interested in more education?: No Currently or been in a relationship where the following occur: No concerns reported THRIVE Score: 2 AUDIT C Alcohol Use Questionnaire (AUDIT-C) 1. How often do you have a drink containing alcohol?: Monthly or less 2. How many drinks containing alcohol do you have on a typical day when you are drinking?: 3 or 4 3. How often do you have six or more drinks on one occasion?: Never Total Score: 2 LEIGHANN-7 AMB Questionnaire LEIGHANN-7 Date LEIGHANN - 7 assessed: 07/06/24 Feeling nervous, anxious, or on edge: 3 = Nearly every day Not being able to stop or control worryin = Not at all Worrying too much about different things: 0 = Not at all Trouble relaxin = Not at all Being so restless that it is hard to sit still: 0 = Not at all Becoming easily annoyed or irritable: 0 = Not at all Feeling afraid as if something awful might happen: 0 = Not at all Total LEIGHANN-7 score (0-4 normal; 5-9 mild; 10-14 moderate; 15-21 severe): 3 Source: Developed by Drs. Marlo Reed, Roxana Lopez, Justin Bruner and colleagues, with an educational north from [employer] Review of Systems Const Denies chills, Denies fatigue, Denies fever(s), Denies headache(s) and Denies weakness ENT Denies dizziness and Denies headache(s) Card Denies dyspnea Resp Denies cough, Denies dyspnea, Denies wheezing and Denies other (shortness of breath) Musc Denies numbness and Denies tingling Neuro Denies dizziness, Denies headache(s), Denies numbness, Denies tingling and Denies weakness Psych Denies anxiety and Denies depression Endo Denies fatigue Aller/Immun Denies wheezing Physical exam (Primary Care) Vital Signs: Last Vital Signs Temp 97.6 F 02/22/25 10:52 Pulse 82 02/22/25 10:52 BP 124/80 02/22/25 10:52 Pulse Ox 95 02/22/25 10:52 Oxygen Delivery Method Room Air 02/22/25 10:52 BMI result Body Mass Index 30.2 Tobacco/Smoking Status: Tobacco use Status Tobacco use date assessed 02/22/25 02/22/25 10:53 Patient Tobacco Use Status Former Tobacco user 02/22/25 10:53 e-Cigarette/Vaping Use Never Used 02/22/25 10:53 PHQ-9: PHQ-9 Score PHQ-9: Total score 11 02/22/25 11:07 Depression Screening Interpretation: Positive Depression Screening Follow-up: Declines treatment (Already on Sertraline and declines change or referral) Thrive Assessment: Date of Thrive Assessment Date Thrive assessed 07/03/24 02/22/25 10:53 Currently or been in a relationship where the following occur: No concerns reported Const General: well developed; No acute distress Nutritional Appearance: well nourished Orientation/consciousness: patient oriented x3 [facility] Head: Yes normocephalic and Yes atraumatic Eyes General: appearance normal, both eyes and all related structures Pupils: Equal, round and reactive pupils present EOM: EOMs intact bilaterally Resp Effort & Inspection: normal respiratory effort Neuro General: patient oriented x3 and gait normal Cranial nerves: Yes Equal, round and reactive pupils present Psych Affect: normal affect Coding Level of Care Code Est Pt Level 4 (03985) Diagnoses Back pain M54.9 Screening for osteoporosis Z13.820 Breast cancer screening by mammogram Z12.31 Assessment & Plan Assessment & Plan (1) Back pain: Code(s): M54.9 - Dorsalgia, unspecified Category: Medical (2) Screening for osteoporosis: Code(s): Z13.820 - Encounter for screening for osteoporosis Category: Medical (3) Breast cancer screening by mammogram: Code(s): Z12.31 - Encounter for screening mammogram for malignant neoplasm of breast Category: Medical Plan Cervicalgia, back and shoulder pain. Patient had an MRI in November 2023 which showed severe multilevel foraminal stenoses. Had discussed pain management at her last visit and it seemed that she had seen pain management recently but apparently this was not so recent. She says when she did see them she was told they could offer injection therapy and she declined this. Had a long discussion with patient regarding goals and expectations for injection therapy. Patient would like to reconsider. I referred her back to pain management. She will also benefit from physical therapy ordered Continue meloxicam muscle relaxant for now. Will continue monitor Patient is overdue for mammogram and also bone density testing. These ordered Orders: Orders PT Evaluation and Treatment Today M25.519 - Pain in unspecified shoulder, M54.2 - Cervicalgia, M54.9 - Dorsalgia, unspecified XR DEXA axial skeleton Today M81.0 - Age-related osteoporosis without current pathological fracture Referrals Pain Management Referral M25.519 - Pain in unspecified shoulder, M54.2 - Cervicalgia, M54.9 - Dorsalgia, unspecified
== END 2025-02-22 12:07 | disposition home or self-care (01) ==
LOC: HO.HMCFM 10:29
PROVIDERS: PCP Family Medicine; Visit Provider Family Medicine
DX: M54.9 Dorsalgia, unspecified (principal); Z13.820 Encounter for screening for osteoporosis; Z12.31 Encounter for screening mammogram for malignant neoplasm of breast

== ENCOUNTER → 2025-02-22 10:28 | Outpatient (BNVA) | payer MEDICARE, SELFPAY | PROVIDERS: PCP Family Medicine; Visit Provider Family Medicine | DX: M54.9 Dorsalgia, unspecified (principal); M54.2 Cervicalgia; M81.0 Age-related osteoporosis without current pathological fracture | CPT/HCPCS: 99212 ==

== ENCOUNTER → 2025-03-01 14:43 | Outpatient (REF) | payer MEDICARE, SELFPAY ==
--- OUTSIDE RECORDS SUMMARY | 2017-12-25 08:48 | XMS_ITS | Continuity of Care Document ---
Author Organization [facility] Address [address] [place] [address] Phone Care Team Providers Care Contact Lens Lathe Operator Name Role Phone Cricket Zimmerman Unavailable Unavailable Allergies, Adverse Reactions, Alerts Substance Reaction Status Criticality METHYLPREDNISOLONE SODIUM SUCCINATE Activ e No Information Medications Medication Instructions Dosage Effective Dates (start - stop) Status Comments Zoloft 100 mg tablet take 1 tablet by or al route every day 100 MG - Active tramadol 50 mg tablet take 1 tablet by o ral route every 6 hours as needed 50 MG - Active Lipitor 20 mg tablet take 1 tablet by or al route every day 20 MG - Active gabapentin 300 mg capsule take 2 capsule by oral route every day 600 MG - Active Procedures Procedure Date OCT-SCODI Posterior Optical Nerve Refraction New Pt Comprehensive Eye Exam Oct- 8 Dilated macular or fundus exam performed Results Test Name Date and Time Measure Units Reference Range Abnormal Flag Status Commen ts Panel Description: [id number] Final Image Zeiss Result 1 Advance Directives Directive Yes / No Effective Date File Name No Information Encounters Encounter Description Practice Location Reason(s) For Visit Diagnoses Date Provider Providers Copied on Encounter [facility], [address] [place], [place], [id number] , [place] tel: [phone] [address] [place] decreased vision (chief complaint) Age-related nuclear cataract, bilateralOcular hypertension, bilateralOpen angle with borderline findings, low risk, bilateralPresbyopia Oct-0 8 Elsie Harley. [address] [place] [address], [id number], [place]. tel:[phone] Referring Provider: Cricket Zimmerman [address] [place], [address] . tel:[phone] Family History Family Member Type Diagnosis Age At Onset Family h/o Problem (finding) Renal disease Family h/o Problem (finding) Cancer Family h/o Problem (finding) Irritable bowel disease Family h/o Problem (finding) Migraines Family h/o Problem (finding) Hyperlipidemia Family h/o Problem (finding) Blood disease Family h/o Problem (finding) Asthma Family h/o Problem (finding) Hearing deficiency Family h/o Problem (finding) Obesity Family h/o Problem (finding) Depression Family h/o Problem (finding) Alzheimer's Disease Family h/o Problem (finding) Alcoholism Family h/o Problem (finding) Eczema Family h/o Problem (finding) Allergies Mother Problem (finding) hypertension Family h/o Problem (finding) ADD/ADHD Payers Payer name Insurance type Covered green party ID Authoriza tion(s) No Information Social History Type Description Quantity Date Captured Comments Alcohol Use Details Unknown Caffeine Use Details Unknown Tobacco Use Status Heavy cigarette smok er (20-39 cigs/day) Smoking Status Heavy tobacco smoker Smoking Tobacco Use Details Cigarette: Age Started: 12 Cigarette: 1 Packs per day Sex Female Chief Complaint And Reason For Visit From encounter dated '12/25/2017 13:48'. decreased vision (chief complaint). Description: The 62 year old female presents for evaluation of decreased vision in the [facility]. It started about 1 year(s) ago. The symptom is constant. In addition, the condition is associated with difficulty reading street signs, TV, and reading. Pt states she doesn't use any drops.Pt states when she was in [place] over 5 year ago she was treated for glaucoma w/ drop tx, since she has been in [place] and seen 3 different eye doctors they all say she doesnot have glaucoma. Verbal order by Dr. Zimmerman for RNFL OCT OU today Reason For Referral Reason For Referral No Information Plan Of Treatment Date Type Action Status Goal Tobacco cessation counseling completed Patient Education Open-Angle Glaucoma: Ca re Instructions completed History Of Present Illness Encounter Date Complaint History Of Prese nt Illness decreased vision The 62 year old female presents for evaluation of decreased vision in the [facility]. It started about 1 year(s) ago. The symptom is constant. In addition, the condition is associated with difficulty reading street signs, TV, and reading. Pt states she doesn't use any drops.Pt states when she was in [place] over 5 year ago she was treated for glaucoma w/ drop tx, since she has been in [place] and seen 3 different eye doctors they all say she does not have glaucoma. Verbal order by Dr. Zimmerman for RNFL OCT OU today Functional Status Date Functional Assessmen t No Information Instructions Date Instruction Additional Infor mation Return in [address] Zimmerman for IOP check and Pachymetry. Related to Ocular hypertension, bilateral Impression/Plan Related to Ocula r hypertension, bilateral Impression/Plan Related to Age-r elated nuclear cataract, bilateral Impression/Plan Related to Open angle with borderline findings, low risk, bilateral Impression/Plan Related to Presb yopia Assessments Type Assessment Date assessment Age-related nuclear cataract, bi lateral assessment Ocular hypertension, bilateral O ct impression Ocular hypertension, bilateral: H40.053 impression Age-related nuclear cataract, bi lateral: H25.13 assessment Open angle with borderline findi ngs, low risk, bilateral assessment Presbyopia impression Open angle with bord parviz findings, low risk, bilateral: H40.013 impression Presbyopia: H52.4 Patient Care Teams Name Effective Dates (start - stop) Status Members No Information
--- NOTE | ~2025-03-01 | XR_ITS ---
EXAMINATION: XR ABDOMEN KUB CLINICAL INDICATION: K59.00 - Constipation, unspecified COMPARISON: CT chest 02-24-24 TECHNIQUE: AP view of the abdomen. FINDINGS: Surgical clips in upper quadrant likely related to cholecystectomy. There is a stent in the right common iliac artery. There are mild degenerative changes in the bilateral hips. Focal increased density in the left upper quadrant could represent a stone in the superior left kidney, vascular calcification, or high density content in bowel. XR/XR KUB IMPRESSION: Normal bowel gas pattern. Focal increased density in the left upper quadrant clips represent a stone, vascular calcification, or high density content in bowel. No stone was seen in the superior left kidney on the prior CT. There were calcifications in the splenic artery. Electronically signed by: Stefano Horner MD 03/01/2025 04:25 PM [facility]
== END ==
LOC: HO.SL 14:43
PROVIDERS: Absent Provider Internal Medicine; PCP Family Medicine; Visit Provider Nurse Practitioner Family
DX: K29.90 Gastroduodenitis, unspecified, without bleeding (principal); K31.A0 Gastric intestinal metaplasia, unspecified; K59.00 Constipation, unspecified; R10.84 Generalized abdominal pain; R14.0 Abdominal distension (gaseous); R06.83 Snoring; R40.0 Somnolence; Z79.899 Other long term (current) drug therapy
CPT/HCPCS: 74018; 99212

== ENCOUNTER → 2025-03-01 14:55 | Outpatient (BNV) | payer MEDICARE, SELFPAY | PROVIDERS: Absent Provider Internal Medicine; PCP Family Medicine; Visit Provider Internal Medicine | DX: G47.33 Obstructive sleep apnea (adult) (pediatric) (principal) | CPT/HCPCS: 95806 ==

== ENCOUNTER 2025-03-01 15:01 | Outpatient (AMB) | payer MEDICARE, SELFPAY ==
--- NOTE | 2025-03-01 15:20 | A.OFFVIS_ITS ---
Vital Signs 03/01/25 15:25 Height 5 ft 1 in Weight 158 lb 11.725 oz BMI 30.0 BP 119/89 Blood Pressure Location Lt brachial Position Sitting Pulse 93 Intake Visit Reasons: S/P double; Dr. Hines Intake Note: Luna presents in the office as a follow up for her EGD and COLO. CC: States diarrhea and pains in the stomach are still there. Communications Programmer Required: No Allergies albuterol Allergy (Mild, Verified 03/01/25 15:26) headache, coded on operating table diphtheria,tetanus,poliomyelitis va Allergy (Mild, Verified 03/01/25 15:26) Swelling solumedrol Allergy (Mild, Uncoded 03/01/25 15:26) Anaphylaxis HPI Comments Details: 68 y.o F with PMH of CAD s/p PCI 2007, peripheral arterial disease status post stents bilateral lower extremities continues on DAPT, hx of R sided lung ca 1996 s/p right upper and 1/2 right middle lobectomy, former smoker quit in 2021, hx of anal SCC, cerebral aneurysm s/p coil, COPD and GERD who is here for perianal lesions. Pt moved from [place] a few years ago. Reports prev hx of anal SCC that was diagnosed in [place] in 2021 which was treated by Dr Rogelio Chaves. Reports started as white spots and is worried that they have returned. Has been seen by gen surg and anoscopy normal 07/2023. In addition, also reports chronic diarrhea that predates the anal SCC for which she had GI evaluation which was negative per her report. This is assoc with bloating and discomfort. No nausea or vomiting. Weight curve stable. Stools without blood in it. Last colo was 4-5 years ago per her recall. Labs reviewed: high cholesterol. Hypothyroid. Fam hx: Mat grandfather colon ca Mother: lung ca Sister: NHL 02/09/25: Impression: 1. Normal esophagus 2. Hiatal hernia 3. Gastritis (biopsy) 4. Duodenitis (biopsy) 5. Normal colon and terminal ileum mucosa (biopsy) 6. Total of 2 polyps removed 7. Diverticulosis 8. Internal and external hemorrhoids A. Colon, right, biopsy: Colonic mucosa within normal limits. B. Colon, descending, polypectomy: Hyperplastic mucosal polyp. C. Colon, left, biopsy: Colonic mucosa within normal limits. D. Colon, sigmoid, polypectomy: Hyperplastic mucosal polyp. E. Duodenum, biopsy: Chronic inactive duodenitis. F. Stomach, antrum, biopsy: Antral-type mucosa with mild chronic inactive inflammation, regenerative changes and intestinal metaplasia (incomplete type); negative for dysplasia; no Helicobacter organisms seen. G. Stomach, body, biopsy: Oxyntic mucosa within normal limits; no Helicobacter organisms seen. 03/01/25: Here with her sister. Arashenting for a follow-up appointment two weeks after an EGD and colonoscopy performed on 02/09/19 .She reports that her baseline symptoms of abdominal pain and bloating are unchanged since the procedure. However also reports that did not stop her meloxicam. The patient describes the pain and bloating as being present all the time, including sharp pains, and notes they are not clearly associated with food intake, although she sometimes experiences postprandial distress after only a few bites. She reports hard stools but also bowel movements 3-4 times per day, with urgency that she manages with frequent Imodium use. --- Pt was informed and consented to the use of ambient scribe for this encounter. 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 Lung cancer Aneurysm, cerebral Surgical History Hx of abdominal surgery History of esophagogastroduodenoscopy (EGD) Hx of brain surgery Hx of colonoscopy History of heart artery stent History of hysterectomy History of partial mastectomy of both breasts History of neck surgery Family History Mother High cholesterol Lung cancer Cardiovascular disease Paternal Grandmother Breast cancer Sister Non-Hodgkin lymphoma Maternal Grandfather Colon cancer Social History Household Members: Family Household Members Other:: sister, sister's boyfriend Both parents involved: No Caregiver staying overnight: No Housing: House Are you a primary career portals teacher to a significant other at home: No Do you presently have visiting nurse or other home services: No 75 years or older and lives alone: No Alcohol intake: current Alcohol intake frequency: holidays/special occasions only Alcohol type: beer and hard liquor Comment: on occasion Patient Tobacco Use Status: Former Tobacco user e-Cigarette/Vaping Use: Never Used Second Hand Smoke Exposure: No Current occupational status: disabled Current occupational exposures/hazards: No Cognitive needs: No Hearing needs: Yes (Patient has hearing aids) Vision needs: Yes (Patient wears glasses) Review of Systems Const All systems reviewed & are unremarkable except as noted in HPI and below Physical Exam Exam Exam: No apparent distress Nonicteric Abdomen soft, nondistended Alert and oriented x3, normal gait Vital Signs: Last Vital Signs Pulse 93 03/01/25 15:25 BP 119/89 03/01/25 15:25 BMI result Body Mass Index 30.0 Assessment & Plan Assessment & Plan (1) Generalized postprandial abdominal pain: Code(s): R10.84 - Generalized abdominal pain Category: Medical (2) Gastritis and duodenitis: Code(s): K29.90 - Gastroduodenitis, unspecified, without bleeding Category: Medical (3) Gastric intestinal metaplasia: Code(s): K31.A0 - Gastric intestinal metaplasia, unspecified Category: Medical (4) Change in bowel habit: Code(s): R19.4 - Change in bowel habit Category: Medical (5) Postprandial abdominal bloating: Code(s): R14.0 - Abdominal distension (gaseous) Plan 1. Post prandial abd pain 2. Abd bloating Multifactorial. Likely from gastritis/duodenitis with ongoing NSAId use vs dyspepsia vs constipation. Plan: - Stop NSAIDs - Cont omeprazole - May consider nortriptyline see below. 3. Diarrhea Can not r/o chronic constipation with overflow diarrhea, given her report of hard stools but frequent, urgent bowel movements managed with Imodium. Plan: - KUB XR - If the X-ray reveals significant stool burden, stop Imodium and start miralax daily - If the X-ray is normal, she will be started on low-dose nortriptyline (see above) - pharmacy is [facility] at [facility] 4. Gastritis with intestinal metaplasia Has gastritis with incomplete metaplasia in antrum. No H pylori. Plan: - Discontinue meloxicam - Continue omeprazole once daily, taken separately from her Plavix - Consider upper endoscopy in 3-5 years to monitor the GIM. 5. History of colon polyps Plan: - Will manage descending colon hyperplastic polyp as SSL. Repeat colo recommended in 5 years. follow up in 2 months Orders: Orders XR KUB Today Indu Hines MD K59.00 - Constipation, unspecified Medications: Resumed clopidogrel 75 mg PO DAILY 90 tabs 3RF 90 days Devang Lepe MD Patient Instructions: - Stop taking meloxicam as it can make your stomach pain and gastritis worse. - Continue taking omeprazole once a day. Make sure to take it at a different time than your Plavix. - Go to the radiology department for an abdominal X-ray. You can go as a walk-in today if you have time. - If the X-ray shows you are constipated, you should stop taking Imodium and take medication to clean out your colon. - If the X-ray does not show constipation, a new prescription for nortriptyline will be sent to your pharmacy to help with your stomach discomfort. - You will need a follow-up colonoscopy in 5 years and a follow-up upper endoscopy in 3-5 years. Coding Level of Care Code Est Pt Level 4 (73440) Diagnoses Generalized postprandial abdominal pain R10.84 Gastritis and duodenitis K29.90 Gastric intestinal metaplasia K31.A0 Change in bowel habit R19.4 Postprandial abdominal bloating R14.0
[2025-03-01 15:25] VITALS: BP 119/89; PULSE 93
--- OUTSIDE RECORDS SUMMARY | 2025-03-02 00:30 | XMS_ITS | Patient Health Record ---
Author Organization [facility] Address [address] [place] [address] [place] [address] Care Team Providers Care Judge Clerk Name Role Phone Radha Morales Primary Care Provider TIN Ruiz Unavailable [phone] Allergies Allergen (clinical drug ingredient) Drug/Non Drug [...] Status W/U Status Risk Notes Problem Cervicalgia (05563394) Cervicalgia (M54.2) Active confirmed Problem High risk drug monitoring status (666575793) alf current use of opiate analgesic (Z79.891) Active confirmed Problem Spinal stenosis (67906042) Spinal stenosis (M48.00) Active confirmed Problem Occipital neuralgia (20258266) Bilateral occipital neuralgia (M54.81) Active confirmed Problem Cervical vertebral fusion syndrome (1025396) Cervical vertebral fusion syndrome (Q76.1) Active confirmed Plan Of Treatment No Information Insurance Providers Payer Name Payer Address Payer Phone Subscriber Number Group Number Insured Name Patient Relationship to Insured Coverage Start Date Coverage End Date [facility] [address] [place] [address] [id number] Luna Elliott Self - patient is the insured Medical (General) History Medical History History ICD Code heart attack osteoporosis lung cancer anxiety depression Surgical History Surgery Date(Month/Year) ACDF 2005 Stent hysterectomy aneurysm cervical gallbladder removed 2017 Bronchoscopy and biospy 2019 Hospitalization History Reason Date(Month/Year) gallbladder removed June 2017
--- OUTSIDE RECORDS SUMMARY | 2025-03-02 00:31 | XMS_ITS | Patient Health Record ---
Author Organization [facility] Address [address] [facility] [address] [place] [address] Care Team Providers Care Air Bag Buffer Name Role Phone RUBI WEEKS MD Primary Care Provider MANNY Murphy Unavailable [phone] Allergies Allergen (clinical drug ingredient) Drug/Non Drug [...] ER 500 MG TAKE 1 TABLET BY [facility] TWICE A DAY FOR 30 DAYS; Duration: [...] Status W/U Status Risk Notes Problem Anxiety (60415938) Anxiety (F41.9) Active confi rmed Problem Peripheral vascular disease (885193446) PAD (peripheral artery disease) (I73.9) Active confirmed Problem Hyperlipidaemia (03671080) Hyperlipidemia, unspecified hyperlipidemia type (E78.5) Active confirmed Problem Claudication (38243509) Claudication (I73.9) Active confirmed Problem Supraventricular premature beats (09383296) PAC (premature atrial contraction) (I49.1) Active confirmed Problem Smoker (98507735) Smoker (F17.200) Active confi rmed Problem Radiology result abnormal (314427447) Abnormal chest CT (R93.89) Active confirmed Problem Angina pectoris (860079894) Angina pectoris (I20.9) Active confirmed Problem Thoracic aortic aneurysm without rupture (76397084) Thoracic aortic aneurysm without rupture (I71.2) Active confirmed Problem Gastroesophageal reflux disease (124668943) Gastroesophageal reflux disease, unspecified whether esophagitis present (K21.9) Active confirmed Problem Coronary arteriosclerosis (disorder) (25905891) CAD in [place] artery (I25.10) Active confirmed Plan Of Treatment Pending Test Test Name Order Date ECG RECORDING 10/27/2021 Insurance Providers Payer Name Payer Address Payer Phone Subscriber Number Group Number Insured Name Patient Relationship to Insured Coverage Start Date Coverage End Date [facility] [address] [place] [address] [id number] GLADYS BAZAN Self - patient is the insured Medical (General) History Medical History History ICD Code hyperlipidemia depression myocardial infarction coronary artery disease/stent PVC's chronic obstructive pulmonary disease (C OPD) lung nodule cardiac murmur lung cancer Surgical History Surgery Date(Month/Year) cholecystectomy mastectomy RCA stent 2007 lobectomy: lung neck surgery
--- OUTSIDE RECORDS SUMMARY | 2025-03-02 00:31 | XMS_ITS | Patient Health Record ---
Author Organization [facility] Address [address] [facility] [address] [place] [address] Care Team Providers Care Deputy Bailiff Name Role Phone ANDREW GUZMAN Primary Care Provider Alberto Sprague Unavailable [phone] Allergies Allergen (clinical drug ingredient) Drug/Non Drug [...] Notes Problem Primary malignant neoplasm of lung (41720394) Malignant neoplasm of unspecified part of right bronchus or lung (C34.91) Active confirmed Problem Dizziness (895686714) Dizziness (R42) Active confirmed Problem Dyspnea (693652872) SOB (shortne ss of breath) (R06.02) Active confirmed Problem Hyperlipidaemia (44994718) HLD (hyperlipidemia) (E78.5) Active confirmed Problem Gastroesophageal reflux disease (050331272) GERD (gastroesophageal reflux disease) (K21.9) Active confirmed Problem Preoperative cardiovascular examination (459813073) Preop cardiovascular exam (Z01.810) Active confirmed Problem Depression (790138707) Depression (F32.9) Active confirmed Problem Coronary artery disease (66588016) CAD (coronary artery disease) (I25.10) Active confirmed Problem Claudication (74402567) Claudication (I73.9) Active confirmed Problem COPD - Chronic obstructive pulmonary disease (05758326) COPD (chronic obstructive pulmonary disease) (J44.9) Active confirmed Problem Stented coronary artery (899862095) Stented coronary artery (Z95.5) Active confirmed Problem Multiple premature ventricular complexes (disorder) (180709020) PVC's (premature ventricular contractions) (I49.3) Active confirmed Problem Chronic pain (98516385) Chronic pain (G89.29) Active confirmed Problem Supraventricular premature beats (82892740) PAC (premature atrial contraction) (I49.1) Active confirmed Problem Pulmonary emphysema (19431436) Pulmonary emphysema, unspecified emphysema type (J43.9) Active confirmed Problem Migraine (06932459) Migraine wit hout status migrainosus, not intractable, unspecified migraine type (G43.909) Active confirmed Problem Sleep disorder (73221056) Sleep disorder (G47.9) Active confirmed Plan Of Treatment No Information Insurance Providers Payer Name Payer Address Payer Phone Subscriber Number Group Number Insured Name Patient Relationship to Insured Coverage Start Date Coverage End Date [employer] [address] [place] [address] [id number] GLADYS BAZAN Self - patient is the insured Medical (General) History Medical History History ICD Code COPD/EMPHYSEMA CAD DEPRESSION SLEEP DISORDER MIGRAINES TODD'S CANCER R-LUNG COLITIS FALLS Surgical History Surgery Date(Month/Year) R-LUNG 1998 COILED CEREBRAL ANEURYSM 2000 06 DISC REPLACEMENT NECK 2004 BILATERAL MASECTOMY 2014 Hospitalization History Reason Date(Month/Year) Aneurysm/Migraine 12/2018
== END 2025-03-01 15:49 | disposition home or self-care (01) ==
LOC: HO.HGI 15:02
PROVIDERS: PCP Family Medicine; Visit Provider Internal Medicine
DX: R10.84 Generalized abdominal pain (principal); K29.90 Gastroduodenitis, unspecified, without bleeding; K31.A0 Gastric intestinal metaplasia, unspecified; R19.4 Change in bowel habit; R14.0 Abdominal distension (gaseous)
CPT/HCPCS: 99214

== ENCOUNTER → 2025-03-01 16:02 | Outpatient (BNV) | payer MEDICARE, SELFPAY | PROVIDERS: Absent Provider Internal Medicine; PCP Family Medicine; Visit Provider Radiology Diagnostic Radiology | DX: K59.00 Constipation, unspecified (principal) | CPT/HCPCS: 74018 ==

== ENCOUNTER 2025-03-02 13:42 | Outpatient (REF) | payer MEDICARE, SELFPAY ==
--- NOTE | ~2025-03-02 | CT_ITS ---
EXAMINATION: CT CHEST WITHOUT IV CONTRAST INDICATION: R91.1 - Solitary pulmonary nodule COMPARISON: Comparison is made with the prior examination dated 02/24/2024. TECHNIQUE: Helical CT scan of the chest was performed without intravenous contrast. Coronal and sagittal reformatted images were generated and reviewed. This CT exam was performed with one or more of the following dose reduction techniques: automated exposure control, adjustment of the mA and/or kV according to patient size, use of iterative reconstruction technique. DLP: 139 mGy-cm CHEST: THYROID: The thyroid is unremarkable. LUNGS: The patient is again noted to be status post right upper lobectomy. Again seen is a 6 mm nodule in the right lower lobe (series 5, image 62), and an additional 5 mm nodule in the left lower lobe (series 5, image 72). Mild emphysematous changes are again noted. Again seen are fibrotic changes in the right lower lobe with associated mild bronchiectasis. MEDIASTINUM: There is no mediastinal lymphadenopathy. MELANI: Evaluation of the hilar regions is limited by lack of intravenous contrast material. CARDIOVASCULATURE: The heart is normal in size. There is no pericardial effusion. Again seen is dilatation of the descending thoracic aorta measuring up to 3.7 cm. A large amount of mural thrombus is again noted. DEGREE OF CORONARY CALCIFICATION: mild PLEURA: There is no pleural effusion. No pneumothorax. MAIN AIRWAYS: The mainstem bronchi and proximal branches are patent. AXILLA: There is no axillary lymphadenopathy. BONES AND SOFT TISSUES: Unremarkable UPPER ABDOMEN: The visualized portions of the liver, spleen, and adrenals have an unremarkable unenhanced appearance. CT/CT chest wo IV con IMPRESSION: 1. Postsurgical changes from right upper lobectomy. Stable right lower lobe pulmonary nodules. 2. Stable fibrotic changes in the right lower lobe. 3. Stable aneurysmal dilatation of the descending thoracic aorta measuring 3.7 cm in diameter. Electronically signed by: Marlo Ibarra MD 03/02/2025 03:02 PM [facility]
--- NOTE | ~2025-03-02 | US_ITS ---
EXAMINATION: Noninvasive assessment of the bilateral lower extremities with ARTERIAL DUPLEX, ANKLE BRACHIAL INDICES (ABIs), and PULSE VOLUME RECORDINGS (PVRs). CLINICAL INFORMATION: I 73.9. TECHNIQUE: Duplex Doppler techniques with waveform analysis and measurement of velocities in the bilateral common femoral, profunda femoris, superficial femoral, popliteal and tibial arteries were performed. Additionally, ankle pulse volume recordings, ankle pressure measurements and ankle brachial indices were obtained of the lower extremity arterial system bilaterally. The study was performed only at rest. COMPARISON: None FINDINGS: DIRECT DUPLEX DOPPLER FINDINGS: RIGHT LEG: Common femoral artery: 142 cm/s, phasicity: Biphasic. Profunda femoris artery: 66 cm/s, phasicity: Biphasic. Superficial femoral artery (proximal): 141 cm/s, phasicity: Biphasic. Spectral broadening. Superficial femoral artery (mid): 106 cm/s, phasicity: Monophasic. Spectral broadening. Superficial femoral artery (distal): 106 cm/s, phasicity: Monophasic. Spectral broadening. Popliteal artery: 61 cm/s, phasicity: Monophasic. Posterior tibial artery: 50 cm/s, phasicity: Monophasic. Spectral broadening. Peroneal artery: 24 cm/s, phasicity: Monophasic. Spectral broadening. Anterior tibial artery: 27 cm/s, phasicity: Monophasic. Spectral broadening. Dorsalis pedis artery: 15 cm/s, phasicity:Monophasic. Spectral broadening. LEFT LEG: Common femoral artery: 191 cm/s, phasicity: Biphasic. Profunda femoris artery: 80 cm/s, phasicity: Monophasic. Spectral broadening. Superficial femoral artery (proximal): 109 cm/s, phasicity: Biphasic. Spectral broadening. Superficial femoral artery (mid): 124 cm/s, phasicity: Monophasic. Spectral broadening. Superficial femoral artery (distal): 72 cm/s, phasicity: Monophasic. Spectral broadening. Popliteal artery: 63 cm/s, phasicity: Biphasic. Spectral broadening. Posterior tibial artery: 65 cm/s, phasicity: Monophasic. Spectral broadening. Peroneal artery: 30 cm/s, phasicity: Monophasic. Anterior tibial artery: 48 cm/s, phasicity: Biphasic. Spectral broadening. Dorsalis pedis artery: 52 cm/s, phasicity: Monophasic. Spectral broadening. BRACHIAL PRESSURES: Right: 139 Left: 135 ANKLE PRESSURES: Right: PT 106, DP 105 Left: PT 106, DP 94 ANKLE-BRACHIAL INDEX: Right: 0.76. Left: 0.76. ANKLE PVR WAVEFORMS: Right: Abnormal Left: Abnormal US/US arterial duplex BI w/ KAYLAN IMPRESSION: Right leg: Moderate to severe inflow disease involving mostly from the knee to the ankle. Left leg: Moderate to severe inflow disease throughout the interrogated arteries. KALYAN Reference: - >1.4 = calcified vessels - 0.9 - 1.4 = normal - no significant arterial disease - 0.7 - 0.89 = mild peripheral arterial disease - 0.51 - 0.69 = moderate peripheral arterial disease - 0.50 = severe peripheral arterial disease - < .30 = critical arterial disease Electronically signed by: Emmanuel Marcos MD 03/02/2025 02:57 PM [facility]
--- OUTSIDE RECORDS SUMMARY | 2025-03-02 19:36 | XMS_ITS | Patient Health Record ---
Author Organization [facility] Address [address] [facility] [facility] [address] [place] [address] Care Team Providers Care Crime Lab Technician Name Role Phone RUBI WEEKS MD Primary Care Provider MANNY Murphy Unavailable [phone] Allergies Allergen (clinical drug ingredient) Drug/Non Drug [...] ER 500 MG TAKE 1 TABLET BY [facility] TWICE A DAY FOR 30 DAYS; Duration: [...] Status W/U Status Risk Notes Problem Anxiety (76418732) Anxiety (F41.9) Active confi rmed Problem Peripheral vascular disease (085989377) PAD (peripheral artery disease) (I73.9) Active confirmed Problem Hyperlipidaemia (17349326) Hyperlipidemia, unspecified hyperlipidemia type (E78.5) Active confirmed Problem Claudication (79587030) Claudication (I73.9) Active confirmed Problem Supraventricular premature beats (29987470) PAC (premature atrial contraction) (I49.1) Active confirmed Problem Smoker (30500716) Smoker (F17.200) Active confi rmed Problem Radiology result abnormal (466213064) Abnormal chest CT (R93.89) Active confirmed Problem Angina pectoris (591268229) Angina pectoris (I20.9) Active confirmed Problem Thoracic aortic aneurysm without rupture (96812120) Thoracic aortic aneurysm without rupture (I71.2) Active confirmed Problem Gastroesophageal reflux disease (107208216) Gastroesophageal reflux disease, unspecified whether esophagitis present (K21.9) Active confirmed Problem Coronary arteriosclerosis (disorder) (56066355) CAD in [place] artery (I25.10) Active confirmed Plan Of Treatment Pending Test Test Name Order Date ECG RECORDING 10/27/2021 Insurance Providers Payer Name Payer Address Payer Phone Subscriber Number Group Number Insured Name Patient Relationship to Insured Coverage Start Date Coverage End Date [facility] [address] [place] [address] [id number] GLADYS BAZAN Self - patient is the insured Medical (General) History Medical History History ICD Code hyperlipidemia depression myocardial infarction coronary artery disease/stent PVC's chronic obstructive pulmonary disease (C OPD) lung nodule cardiac murmur lung cancer Surgical History Surgery Date(Month/Year) cholecystectomy mastectomy RCA stent 2007 lobectomy: lung neck surgery
--- OUTSIDE RECORDS SUMMARY | 2025-03-02 19:36 | XMS_ITS | Patient Health Record ---
Author Organization [facility] Address [address] [facility] [address] [place] [address] Care Team Providers Care Sight Effects Specialist Name Role Phone ANDREW GUZMAN Primary Care Provider Alberto Sprague Unavailable [phone] Allergies Allergen (clinical drug ingredient) Drug/Non Drug [...] Notes Problem Primary malignant neoplasm of lung (54826735) Malignant neoplasm of unspecified part of right bronchus or lung (C34.91) Active confirmed Problem Dizziness (255581183) Dizziness (R42) Active confirmed Problem Dyspnea (074576040) SOB (shortne ss of breath) (R06.02) Active confirmed Problem Hyperlipidaemia (24360612) HLD (hyperlipidemia) (E78.5) Active confirmed Problem Gastroesophageal reflux disease (045826926) GERD (gastroesophageal reflux disease) (K21.9) Active confirmed Problem Preoperative cardiovascular examination (374558710) Preop cardiovascular exam (Z01.810) Active confirmed Problem Depression (560607208) Depression (F32.9) Active confirmed Problem Coronary artery disease (34746414) CAD (coronary artery disease) (I25.10) Active confirmed Problem Claudication (31027130) Claudication (I73.9) Active confirmed Problem COPD - Chronic obstructive pulmonary disease (25968248) COPD (chronic obstructive pulmonary disease) (J44.9) Active confirmed Problem Stented coronary artery (307145747) Stented coronary artery (Z95.5) Active confirmed Problem Multiple premature ventricular complexes (disorder) (539699941) PVC's (premature ventricular contractions) (I49.3) Active confirmed Problem Chronic pain (00408768) Chronic pain (G89.29) Active confirmed Problem Supraventricular premature beats (17551916) PAC (premature atrial contraction) (I49.1) Active confirmed Problem Pulmonary emphysema (52085343) Pulmonary emphysema, unspecified emphysema type (J43.9) Active confirmed Problem Migraine (66746857) Migraine wit hout status migrainosus, not intractable, unspecified migraine type (G43.909) Active confirmed Problem Sleep disorder (79310494) Sleep disorder (G47.9) Active confirmed Plan Of Treatment No Information Insurance Providers Payer Name Payer Address Payer Phone Subscriber Number Group Number Insured Name Patient Relationship to Insured Coverage Start Date Coverage End Date [employer] [address] [place] [phone] [id number] GLADYS BAZAN Self - patient is the insured Medical (General) History Medical History History ICD Code COPD/EMPHYSEMA CAD DEPRESSION SLEEP DISORDER MIGRAINES TODD'S CANCER R-LUNG COLITIS FALLS Surgical History Surgery Date(Month/Year) R-LUNG 1998 COILED CEREBRAL ANEURYSM 2000 06 DISC REPLACEMENT NECK 2004 BILATERAL MASECTOMY 2014 Hospitalization History Reason Date(Month/Year) Aneurysm/Migraine 12/2018
--- OUTSIDE RECORDS SUMMARY | 2025-03-02 19:36 | XMS_ITS | Patient Health Record ---
Author Organization [facility] Address [address] [place] [address] [place] [address] Care Team Providers Care Sap Crm Developer Name Role Phone Radha Morales Primary Care Provider TIN Ruiz Unavailable [phone] Allergies Allergen (clinical drug ingredient) Drug/Non Drug [...] Status W/U Status Risk Notes Problem Cervicalgia (17228507) Cervicalgia (M54.2) Active confirmed Problem High risk drug monitoring status (963188131) skilled nursing current use of opiate analgesic (Z79.891) Active confirmed Problem Spinal stenosis (86350926) Spinal stenosis (M48.00) Active confirmed Problem Occipital neuralgia (56548339) Bilateral occipital neuralgia (M54.81) Active confirmed Problem Cervical vertebral fusion syndrome (2936348) Cervical vertebral fusion syndrome (Q76.1) Active confirmed Plan Of Treatment No Information Insurance Providers Payer Name Payer Address Payer Phone Subscriber Number Group Number Insured Name Patient Relationship to Insured Coverage Start Date Coverage End Date [facility] [address] [place] [address] [id number] Luna Elliott Self - patient is the insured Medical (General) History Medical History History ICD Code heart attack osteoporosis lung cancer anxiety depression Surgical History Surgery Date(Month/Year) ACDF 2005 Stent hysterectomy aneurysm cervical gallbladder removed 2017 Bronchoscopy and biospy 2019 Hospitalization History Reason Date(Month/Year) gallbladder removed June 2017
== END 2025-03-02 13:43 | disposition home or self-care (01) ==
LOC: HO.US 13:42
PROVIDERS: PCP Family Medicine; Visit Provider Surgery Vascular Surgery
DX: R91.1 Solitary pulmonary nodule (principal); I73.9 Peripheral vascular disease, unspecified
CPT/HCPCS: 71250; 93922; 93925

== ENCOUNTER → 2025-03-02 13:44 | Outpatient (BNV) | payer MEDICARE, SELFPAY | PROVIDERS: PCP Family Medicine; Visit Provider Radiology Diagnostic Radiology | DX: R91.1 Solitary pulmonary nodule (principal); I73.9 Peripheral vascular disease, unspecified | CPT/HCPCS: 71250; 93925 ==